=== PATIENT | male | born 1995 | race Caucasian/White ===

== ENCOUNTER 2024-06-09 09:10 | Emergency (ER) | payer BC, SELFPAY ==
[2024-06-09 09:34] VITALS: BP 136/80; PULSE 74; RESP 16; TEMP 36.6; O2SAT 97
--- NOTE | 2024-06-09 10:05 | ED.URI ---
HPI - URI/Sore Throat General Chief Complaint: Upper Respiratory Infection Stated Complaint: ? Strep Time Seen by Provider: 06/09/24 10:06 History of Present Illness HPI Narrative: 29-year-old male presented for complaint of sore throat for 2 weeks. He says he has ?no pain? just some discomfort. Has been using a homeopathic 'fire cider' drink without much improvement. Says his saw white patches in the throat. Denies shortness of breath, wheezing, nausea, vomiting diarrhea, fevers or chills. Related Data Home Medications ?Medication ?Instructions ?Recorded ?Confirmed ?Last Taken ?Type No Home Medications 06/09/24 06/09/24 Unknown History Allergies Allergy/AdvReac Type Severity Reaction Status Date / Time Penicillins Allergy Mild Hives Verified 06/09/24 10:09 Bumble Bee Allergy Mild Hives Uncoded 06/09/24 10:09 Review of Systems Review of Systems: CONSTITUTIONAL: Denies body aches, fever, chills, or sweats. EYES: Denies visual changes, redness, or discharge. ENT: reports sore throat Denies rhinorrhea, congestion, or otalgia. CARDIOVASCULAR: Denies chest pain, palpitations, or edema. RESPIRATORY: Denies dyspnea. GASTROINTESTINAL: Denies abdominal pain, nausea, vomiting, or diarrhea. SKIN: Denies rash MUSCULOSKELETAL: Denies back pain, joint pain, or myalgia. NEUROLOGIC: Denies headache Exam Narrative: GENERAL: well-appearing EYES: conjunctivae clear ENT: Mucous membranes moist. TM pearly arcos with normal light reflex bilaterally; no tragal tenderness. Oropharynx mildly erythematous without lesions. Tonsils not enlarged and without exudate. No drooling, no hoarseness, no trismus, uvula midline. No tripod positioning, hot potato voice, or soft palate swelling. NECK: Supple. No lymphadenopathy CHEST: Clear to auscultation, breath sounds equal. No respiratory distress, speaks in full sentences. HEART: Regular rate and rhythm. No murmur heard. SKIN: Warm, dry, no rash. NEURO: Alert and oriented x3. Course Course Emergency Course: Patient is aware of diagnosis, understands and agrees to treatment plan. Anticipatory guidance given. Patient agrees to follow-up as directed and is aware of reasons to seek care at the emergency department. Portions of this record may have been created with voice recognition software [employer] of Care: Express Care Visit Vital Signs Vital signs: Vital Signs Temperature 97.8 F 06/09/24 09:34 Pulse Rate 74 06/09/24 09:34 Respiratory Rate 16 06/09/24 09:34 Blood Pressure 136/80 06/09/24 09:34 Pulse Oximetry 97 06/09/24 09:34 Temperature 97.8 F 06/09/24 09:34 Pulse Rate 74 06/09/24 09:34 Respiratory Rate 16 06/09/24 09:34 Blood Pressure 136/80 06/09/24 09:34 Pulse Oximetry 97 06/09/24 09:34 MDM - URI/Sore Throat MDM Narrative Medical decision making narrative: neg strep result reviewed with pt. Advise supportive treatments. Patient is appropriate for outpatient treatment and follow-up. Differential Diagnosis Differential diagnosis: Likely upper respiratory infection, viral infection and pharyngitis Discharge Plan Discharge Clinical Impression: Pharyngitis Patient Disposition: Home, Self-Care Condition: Stable Instructions: Antibiotic Form, Strep Throat (ED) Additional Instructions: Rapid strep swab was negative today You will be notified in a few days if the culture comes back positive for strep, and appropriate antibiotics will be called in at that time. if symptoms are due to a viral illness, it is not treated with antibiotics. Viral symptoms can be present for up to 10-14 days. Recommendations: Flonase spray and Zyrtec for sinus congestion Cough syrup may cause drowsiness; avoid driving or take it at night time. Tylenol every 8 hours as needed for pain/fever Soft foods, cool liquids, warm tea. Gargle with warm saltwater twice a day. Chloraseptic spray and throat lozenges. Rest and stay hydrated. --Follow up with your PCP --Go to the ER immediately if you cannot swallow your saliva, trouble breathing/wheezing, throat swelling, pain is persistent and severe Patient Language: Mongolian Follow-up/Referrals: Dave,ALDA Webb [Primary Care Provider] - Time of Disposition: 10:18
[2024-06-09 10:09] LABS: EDSTREPNEGPOS1 Negative (Negative)
--- OUTSIDE RECORDS SUMMARY | 2024-06-16 05:06 | XMS_ITS | Encounter Summary ---
Author Organization [facility] Address [address] [place] [address] Phone Care Team Providers Care Line Haul Driver Name Role Phone Tracey Acosta Primary Care Pr ovider Encounter Details Date Type Department Care Team (Late st Contact Info) Description 09/12/2023 Telephone [facility] Gastroenterology [facility] Medicine 12th [place] [address] [place] [phone] Marcelina Guerrero RMA Social History Tobacco Use Types Packs/Day Years Used Date Smoking Tobacco: Never Smokeless Tobacco: Never Alcohol Use Standard Drinks/Week Comments Not Currently 0 (1 standard drink = 0.6 oz pur e alcohol) Personal Safety Answer Date Recorded Getting School Help Needed Not on file 06/23 Sex and Gender Information Value Date Recorded Sex Assigned at Not on file 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 * Telephone Encounter - Marcelina Guerrero RMA - 09/12/2023 7:29 PM CDT ----- Message from Monica Fry RN sent at 02/06/2023 10:04 AM CDT ----- Regarding: march colonoscopy Per Senait pt needs colonoscopy to evaluate for inflammation please documented in this encounter Plan of Treatment Not on file documented as of this encounter Visit Diagnoses Not on filedocumented in this encounter Care Teams Line Haul Driver Relationship Specialty Start Date End Date Tracey Acosta PA PCP - General Physician Cotton Weigher Operator 03/06/18 documented as of this encounter
--- OUTSIDE RECORDS SUMMARY | 2024-06-16 05:06 | XMS_ITS | Referral Summary ---
Author Organization [facility] Address [address] [place] [address] Care Team Providers Care Medical Instrument Cable Fabricator Name Role Phone Tracey Acosta Primary Care Pr ovider Allergies Active Allergy Reactions Criticality Noted Date Comments Penicillins Rash Medium Medications No known medications Active Problems Problem Noted Date Diagnosed Date High risk medications (not anticoagulants) long- term use 04/22/2019 Assessment & Plan (04/22/2019 11:41 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): High risk medications: As with all patients taking immunosuppressive biologic therapies or immunomodulators, we provide a balanced discussion on benefits and risks associated with these medications. Regarding potential risks, we employ a strategy of active monitoring for medication related toxicities. Toxicities and risks discussed in monitoring include, but are not limited to the following: infusion reactions including anaphylaxis; bacterial, viral and fungal infections; pancreatitis; heart failure; neurologic reactions; hematologic and solid tumors malignancy including an increased risk of lymphoma and skin cancers; bone marrow toxicity including anemia, lymphopenia and immune suppression; hepatotoxicity and potential renal toxicity. Patients are actively assessed through routine laboratories (Q4 month or more frequently) which I personally review and are encouraged to contact us with any questions regarding new symptom development. Ulcerative colitis with complication 07/17/2018 Overview (10/01/2019): Year of diagnosis: 2010 Year symptoms began: 2010 Distribution: Extensive (E3). Extraintestinal manifestations: none Complications: none Prior treatments: mesalamine, uceris Current treatment: Entyvio Prior surgeries: none Endoscopies: Colonoscopy 08/2018 The examined portion of the ileum was normal. Colitis. Inflammation was found in the hepatic flexure. This was graded as Rowland Score 3 (severe disease). Normal mucosa in the ascending colon and in the cecum. Normal mucosa in the descending colon. Moderately active (Rowland Score 2) ulcerative colitis. Inflammation was found from the anus to the rectum. This was graded as Rowland Score 2 (moderate disease). Pseudopolyps in the recto-sigmoid colon. Biopsied Path: Small bowel, terminal ileum, biopsy Ileal mucosa with no histopathologic abnormality, Large bowel, right colon, biopsy Colonic mucosa with largely preserved architecture, patchy cryptitis and crypt abscess No viral inclusions, parasites, granuloma, or dysplasia, Large bowel, transverse colon, biopsy Chronic active colitis, with prominent crypt abscesses No viral inclusions, granuloma, or dysplasia, Large bowel, descending colon, biopsy Inactive chronic colitis, with glandular architectural disarray, Paneth cell metaplasia, and increased eosinophils No activity, granuloma, or dysplasia, Large bowel, rectosigmoid, biopsy Inactive chronic colitis/ proctitis, with glandular architectural disarray, Paneth cell metaplasia, and increased eosinophils No activity, granuloma, or dysplasia, Large bowel, rectosigmoid, polyps, biopsy Inflammatory pseudopolyps, no dysplasia Imaging: MRE 05/2019 active inflammation noted distal descending to rectum Assessment & Plan (04/22/2019 11:40 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): Ulcerative colitis diagnosed in 2010. Previously maintained on Lialda. He had a colonoscopy in August while on Lialda. At that time he had active disease. The inflammation noted on endoscopy was not contiguous and there were some skipped areas. Question is this possible crohn's vs. Atypical UC/poss med effect. Plan at last OV was to check labs and MRE as well. This was not done. He reports since that office visit he has stopped lialda due to cost. Only taking Uceris PRN for symptoms. He hasn't done this for 2 months. Reports about 2 months ago he had a flare of diarrhea and hematochezia. He currently is having 3-5 stools daily. Reports urgency of stool as well -needs to be on maintenance medication for his IBD especially given endoscopic findings. Mesalamine was not effective at controlling his IBD. Discussed at length the importance of maintenance medication and avoidance of steroids if necessary, he v/u -discussed other treatment options. 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 Immunizations Name Administration Dates Next Due DTP 08/29/1994,02/07/1994,1993 ,1993 DTaP 02/02/1998 Hep B, Adolescent or Pediatric 08/29/1994,1993,1993 HiB 08/29/1994,02/07/1994,1993 MMR 02/02/1998,02/07/1994 OPV 02/02/1998,02/07/1994,1993 ,1993 Social History Tobacco Use Types Packs/Day Years Used Date Smoking Tobacco: Never Smokeless Tobacco: Never Tobacco Cessation:Counseling Given: Not Answered Alcohol Use Standard Drinks/Week Comments Not Currently 0 (1 standard drink = 0.6 oz pur e alcohol) Personal Safety Answer Date Recorded Getting School Help Needed Not on file 06/23 Sex and Gender Information Value Date Recorded Sex Assigned at Not on file Legal Sex Male 7:03 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 Gender Identity Not on file Sexual Orientation Not on file Last Filed Vital Signs Vital Sign Reading Time Taken Comments Blood Pressure 109/67 01/02/2023 2:27 PM CDT Pulse 61 01/02/2023 2:27 PM CDT Temperature 36.8 ??C (98.2 ??F) 01/02/2023 2:27 PM CD T Respiratory Rate 16 03/22/2022 2:48 PM CDT Oxygen Saturation 94% 01/02/2023 2:27 PM CDT Inhaled Oxygen Concentration - - Weight 104.8 kg (231 lb) 01/02/2023 2:27 PM CDT Height 180.3 cm (5' 11 ) 03/22/2022 2:48 PM CDT Body Mass Index 32.22 03/22/2022 2:48 PM CDT Plan of Treatment Not on file Insurance [facility] [address] [facility] [place] [phone] [place] [address] CIGNA CIGNA Advance Directives For more information, please contact: [phone] * Full Code (Latest Code Status on File) Date Activated Date Inactivated Comments 09/07/2018 1:39 PM 09/07/2018 9:36 PM Care Teams Medical Instrument Cable Fabricator Relationship Specialty Start Date End Date Tracey Acosta PA PCP - General Physician Maintenance Pipefitter 03/06/18
--- OUTSIDE RECORDS SUMMARY | 2024-06-16 05:06 | XMS_ITS | Encounter Summary ---
Author Organization [facility] Address [address] [place] [address] Phone Care Team Providers Care Executive Account Manager Name Role Phone Tracey Acosta Primary Care Pr ovider Reason for Visit * Reason Onset Date Comments Scheduling Appointments 08/03/2023 Unsuccessful Phone Call 4 08/03/2023 Encounter Details Date Type Department Care Team (Late st Contact Info) Description 08/03/2023 Telephone [facility] Gastroenterology [address] [facility] 12th [place] [address] [place] [address] Nina Rosenbaum Scheduling Appointments; Unsuccessful Phone Call 4 Social History Tobacco Use Types Packs/Day Years Used Date Smoking Tobacco: Never Smokeless Tobacco: Never Alcohol Use Standard Drinks/Week Comments Not Currently 0 (1 standard drink = 0.6 oz pur e alcohol) Personal Safety Answer Date Recorded Getting School Help Needed Not on file 06/23 Sex and Gender Information Value Date Recorded Sex Assigned at Not on file Legal Sex Male 7:03 AM HUMAN RESOURCES BENEFITS SPECIALIST Gender Identity Not on file Sexual Orientation Not on file documented as of this encounter Miscellaneous Notes * Telephone Encounter - Nina Rosenbaum - 08/08/2023 2:41 PM HUMAN RESOURCES BENEFITS SPECIALIST Attempted call to pt; no answer, LMOR x2 requesting pt call back to schedule f/u appt N RESOURCES BENEFITS SPECIALIST * Telephone Encounter - Nina Rosenbaum - 08/03/2023 10:36 AM HUMAN RESOURCES BENEFITS SPECIALIST No response to previous calls or letters to schedule. I attempted call to pt today; no answer, LMOR x1 requesting he call me back as soon as possible. N RESOURCES BENEFITS SPECIALIST * Telephone Encounter - Nina Rosenbaum - 08/03/2023 10:35 AM HUMAN RESOURCES BENEFITS SPECIALIST ----- Message from Nina Rosenbaum sent at 07/14/2023 10:32 AM HUMAN RESOURCES BENEFITS SPECIALIST ----- No. Warning letter mailed today. ----- Message ----- From: Monica Fry RN Sent: 07/14/2023 12:00 AM HUMAN RESOURCES BENEFITS SPECIALIST To: Amrit Weber Hakan Pool Did pt schedule? ----- Message ----- From: Hira Ledbetter Sent: 07/03/2023 8:43 AM HUMAN RESOURCES BENEFITS SPECIALIST To: Monica Fry RN Lmomx2 and sent letter ----- Message ----- From: Keeley Tran Sent: 06/30/2023 1:48 PM HUMAN RESOURCES BENEFITS SPECIALIST To: Hira Ledbetter ----- Message ----- From: Monica Fry RN Sent: 06/30/2023 11:15 AM HUMAN RESOURCES BENEFITS SPECIALIST To: Amrit Weber [facility] [place] Jul 2023 Rov with parakkal hakan or ibd inpatient coder for 6 deyanira f/u please N RESOURCES BENEFITS SPECIALIST documented in this encounter Plan of Treatment Not on file documented as of this encounter Visit Diagnoses Not on filedocumented in this encounter Care Teams Executive Account Manager Relationship Specialty Start Date End Date Tracey Acosta PA PCP - General Physician Marketing Intern 03/06/18 documented as of this encounter
--- OUTSIDE RECORDS SUMMARY | 2024-06-16 05:06 | XMS_ITS | Clinical Summary ---
Author Organization [facility] Address [address] [place] [address] Care Team Providers Care Health Information Manager Name Role Phone Dave Tracey CHAVEZ Primary Care Pr ovider Allergies Active Allergy Reactions Criticality Noted Date Comments Penicillins Rash Medium Medications No known medications Active Problems Problem Noted Date Diagnosed Date High risk medications (not anticoagulants) long- term use 04/22/2019 Assessment & Plan (04/22/2019 11:41 AM ANSWERER): High risk medications: As with all patients [...] rectum Assessment & Plan (04/22/2019 11:40 AM ANSWERER): Ulcerative colitis diagnosed in 2010. Previously maintained [...] HiB 08/29/1994,02/07/1994,1993 MMR 02/02/1998,02/07/1994 OPV 02/02/1998,02/07/1994,1993 ,1993 Surgical History Surgery Date Site/Laterality Comments COLONOSCOPY SHOULDER SURGERY Left Medical History Medical History Date Comments Awareness under anesthesia Ulcerative colitis (HCC) Family History Medical History Relation Name Comments No Known Problems Father Lung cancer Maternal Grandfather No Known Problems Mother Relation Name Status Comments Father Alive Maternal Grandfather Mother Alive Social History Tobacco Use Types Packs/Day Years [...] on file Legal Sex Male 7:03 AM ANSWERER Gender Identity Not on file Sexual Orientation Not on file Obstetrics History Last Filed Vital Signs Vital Sign Reading [...] 03/22/2022 2:48 PM CDT Plan of Treatment Health Maintenance Due Date Last Done Comments Depression Screening 1993 Hepatitis C Screening 1993 DTaP/Tdap/Td Vaccine (6 - Tdap) 01/09/2004 02/02/1998, 08/29/1994, 02/07/1994, Additional history exists Varicella Vaccines (1 of 2 - 13+ 2-dose series) 2006 Regular Well Visit/Exam 18-64 2011 Influenza Vaccine (#1) 2024 HPV Vaccines Aged Out No longer eligi ble based on patient's age to complete this topic Pneumococcal vaccine <65 Aged Out No longer eligible based on patient's age to complete this topic Insurance [facility] COPAY [facility] [address] [facility] [id number] [place] [address] CIGNA CIGNA Advance Directives For more information, please contact: [phone] * Full Code (Latest Code Status on File) Date Activated Date Inactivated Comments 09/07/2018 1:39 PM 09/07/2018 9:36 PM Care Teams Health Information Manager Relationship Specialty Start Date End Date Tracey Acosta PA PCP - General Physician Artificial Stone Setter 03/06/18
--- OUTSIDE RECORDS SUMMARY | 2024-06-16 05:06 | XMS_ITS | Encounter Summary ---
Author Organization [facility] Address [address] [place] [address] Phone Care Team Providers Care Heat Treater Name Role Phone Tracey Acosta Primary Care Pr ovider Encounter Details Date Type Department Care Team (Late st Contact Info) Description 10/12/[address] 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 Portal message sent to patient(04/10), letter mail(09/12) and phone call placed(09/11), no responses received from any attempts that have been made. Patient will need to contact office if they would like to schedule procedure. documented in this encounter Plan of Treatment Not on file documented as of this encounter Visit Diagnoses Not on filedocumented in this encounter Care Teams Heat Treater Relationship Specialty Start Date End Date Tracey Acosta PA PCP - General Physician Master Brewer 03/06/18 documented as of this encounter
--- OUTSIDE RECORDS SUMMARY | 2024-06-16 05:07 | XMS_ITS | Encounter Summary ---
Author Organization [facility] Address [address] [place] [address] Phone Care Team Providers Care Gut Carrier Name Role Phone Tracey Acosta Primary Care Pr ovider Encounter Details Date Type Department Care Team (Late st Contact Info) Description 09/22/2020 7:50 AM CDT Lab [facility] Endocrinology Metabolism and Lipid [address] [facility] 5th [place] [address] [place] [address] Social History Tobacco Use Types Packs/Day Years Used Date Smoking Tobacco: Never Smokeless Tobacco: Never Alcohol Use Standard Drinks/Week Comments Not Currently 0 (1 standard drink = 0.6 oz pur e alcohol) Sex and Gender Information Value Date Recorded Sex Assigned at Not on file 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
--- OUTSIDE RECORDS SUMMARY | 2024-06-16 05:07 | XMS_ITS | Encounter Summary ---
Author Organization [facility] Address [address] [place] [address] Phone Care Team Providers Care Accounts Payables Clerk Name Role Phone Tracey Acosta Primary Care Pr ovider Encounter Details Date Type Department Care Team (Late st Contact Info) Description 01/19/2021 Documentation [facility] Gastroenterology [address] [facility] 8th [place] [address] [place] [phone] Monica Fry RN Social History Tobacco Use Types Packs/Day Years Used Date Smoking Tobacco: Never Smokeless Tobacco: Never Alcohol Use Standard Drinks/Week Comments Not Currently 0 (1 standard drink = 0.6 oz pur e alcohol) Sex and Gender Information Value Date Recorded Sex Assigned at Not on file Legal Sex Male 7:03 AM TURRET PUNCH PRESS OPERATOR Gender Identity Not on file Sexual Orientation Not on file documented as of this encounter Progress Notes * Monica Fry RN - 01/19/2021 9:58 AM CDT Plan per [facility]: - safeties plus lipid panel - start xeljanz. PA started on covermymeds. Scales: [id number] documented in this encounter Plan of Treatment Not on file documented as of this encounter Visit Diagnoses Not on filedocumented in this encounter Care Teams Accounts Payables Clerk Relationship Specialty Start Date End Date Tracey Acosta PA PCP - General Physician Campus Recruiting Intern 03/06/18 documented as of this encounter
--- OUTSIDE RECORDS SUMMARY | 2024-06-16 05:07 | XMS_ITS | Encounter Summary ---
Author Organization [facility] Address [address] [place] [address] Phone Care Team Providers Care Lime Vat Tender Name Role Phone Tracey Acosta Primary Care Pr ovider Encounter Details Date Type Department Care Team (Late st Contact Info) Description 10/01/2019 Orders Only [facility] Gastroenterology [address] [facility] Advanced Medicine 8th [place] [address] [place] [address] Kristie Cormier MD [address] [place], [place] [id number] Ulcerative colitis with complication, unspecified location (CMS/HCC) (Primary Dx) Social History Tobacco Use Types Packs/Day Years Used Date Smoking Tobacco: Never Smokeless Tobacco: Never Alcohol Use Standard Drinks/Week Comments Not Currently 0 (1 standard drink = 0.6 oz pur e alcohol) Sex and Gender Information Value Date Recorded Sex Assigned at Not on file Legal Sex Male 7:03 AM CUSTOMER ACCOUNTS ADVISOR Gender Identity Not on file Sexual Orientation Not on file documented as of this encounter Plan of Treatment Scheduled Orders Name Type Priority Associated Diagnoses Orde r Schedule Calprotectin, fecal Lab Routine Ulcerative colitis with complication, unspecified location (CMS/HCC) Expected: 10/01/2019, Expires: 09/30/2020 documented as of this encounter Visit Diagnoses Diagnosis Ulcerative colitis with complication, unspecified location (HCC)- Primary documented in this encounter Care Teams Lime Vat Tender Relationship Specialty Start Date End Date Tracey Acosta PA PCP - General Physician Attorney Recruiter 03/06/18 documented as of this encounter
--- OUTSIDE RECORDS SUMMARY | 2024-06-16 05:07 | XMS_ITS | Encounter Summary ---
Author Organization [facility] Address [address] [place] [address] Phone Care Team Providers Care Rehabilitation Specialist Name Role Phone Tracey Acosta Primary Care Pr ovider Encounter Details Date Type Department Care Team (Late st Contact Info) Description 06/02/2020 Orders Only [facility] Gastroenterology [address] [facility] Advanced Medicine 8th [place] [address] [place] [address] Kristie Cormier MD [address] [place] [address] Social History Tobacco Use Types Packs/Day Years Used Date Smoking Tobacco: Never Smokeless Tobacco: Never Alcohol Use Standard Drinks/Week Comments Not Currently 0 (1 standard drink = 0.6 oz pur e alcohol) Sex and Gender Information Value Date Recorded Sex Assigned at Not on file 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
--- OUTSIDE RECORDS SUMMARY | 2024-06-16 05:07 | XMS_ITS | Encounter Summary ---
Author Organization [facility] Address [address] [place] [address] Phone Care Team Providers Care Outdoor Adventure Guides Name Role Phone Tracey Acosta Primary Care Pr ovider Reason for Visit * Episode Based Medications (Routine) - Closed Specialty Diagnoses / Procedures Referred By Contac t Referred To Contact Diagnoses Ulcerative colitis with complication, unspecified location (HCC) Procedures DE INJECTION, VEDOLIZUMAB Kristie Cormier MD [address] [place] [address] Phone: tel: fax: [facility] Infusion Therapy [facility] Medicine 5th [place] [address] [place] [address] Phone: tel: fax: Referral ID Status Reason Start Date Expiration Date Visits Re quested Visits Authorized [id number] Closed 07/03/2019 07/03/2020 5 5 Encounter Details Date Type Department Care Team (Late st Contact Info) Description 07/29/2019 12:45 PM REAR ADMIRAL Infusion [facility] Infusion Therapy [facility] Advanced Medicine 5th [place] [address] [place] [address] Ulcerative colitis with complication, unspecified location (CMS/HCC) (Primary Dx) Social History Tobacco Use Types Packs/Day Years Used Date Smoking Tobacco: Never Smokeless Tobacco: Never Alcohol Use Standard Drinks/Week Comments Not Currently 0 (1 standard drink = 0.6 oz pur e alcohol) Sex and Gender Information Value Date Recorded Sex Assigned at Not on file Legal Sex Male 7:03 AM REAR ADMIRAL Gender Identity Not on file Sexual Orientation Not on file documented as of this encounter Last Filed Vital Signs Vital Sign Reading Time Taken Comments Blood Pressure 123/78 07/29/2019 1:20 PM REAR ADMIRAL Pulse 60 07/29/2019 1:20 PM REAR ADMIRAL Temperature 36.7 ??C (98.1 ??F) 07/29/2019 1:20 PM CS T Respiratory Rate - - Oxygen Saturation - - Inhaled Oxygen Concentration - - Weight - - Height - - Body Mass Index - - documented in this encounter Progress Notes * Emilia Santo RN - 07/29/2019 12:45 PM CST Tolerated Entyvio infusion without adverse reaction. Follow up scheduled. No concerns. ADMIRAL documented in this encounter Plan of Treatment Not on file documented as of this encounter Procedures Procedure Name Priority Date/Time Associated Diagnosis Comments CBC WITH AUTO DIFFERENTIAL Routine 07/29/2019 1:25 PM REAR ADMIRAL Ulcerative colitis with complication, unspecified location (CMS/HCC) COMPREHENSIVE METABOLIC PANEL Routine 07/29/2019 1:25 PM REAR ADMIRAL Ulcerative colitis with complication, unspecified location (CMS/HCC) documented in this encounter Results * Comprehensive metabolic panel (07/29/2019 1:25 PM REAR ADMIRAL) Total Protein 7.9 6.1 - 8.4 g/dL [facility] Albumin 4.4 3.5 - 5.2 g/dL [facility] Calcium 10.3 8.6 - 10.3 mg/dL [facility] BUN 13 7 - 23 mg/dL [facility] Total Bilirubin 0.53 0.20 - 1.40 mg/dL [facility] Alk Phos, Total 70 35 - 129 IU/L [facility] AST (SGOT) 25 11 - 47 IU/L [facility] ALT (SGPT) 30 6 - 53 IU/L [facility] Creatinine 1.16 0.70 - 1.30 mg/dL [facility] Sodium 139 135 - 145 mmol/L [facility] Potassium 4.2 3.3 - 5.1 mmol/L [facility] Chloride 104 95 - 107 mmol/L [facility] CO2 Content 24 21 - 29 mmol/L [facility] Glucose 85 64 - 99 mg/dL [facility] Comment: NONFASTING GLUCOSE RANGE = 64-199 mg/dL FASTING GLUCOSE 64 - 99 = NORMAL FASTING GLUCOSE 100 - 125 = IMPAIRED FASTING GLUCOSE FASTING GLUCOSE >=126 = PROVISIONAL DIAGNOSIS OF DIABETES eGFR NON-AFR. CAMEROONIAN 86.4 >60.0 mL/min/1.7 3 m2 [facility] eGFR >90.0 >60.0 mL/min/1.7 3 m2 [facility] Blood specimen (specimen) (Blood, Venous) 07/29/2019 1:25 PM REAR ADMIRAL 07/29/2019 2:25 PM REAR ADMIRAL Kristie Cormier MD LAB BLOOD ORDERABLES Final Re sult [facility] * CBC with auto differential (07/29/2019 1:25 PM REAR ADMIRAL) White Blood Count 6.7 3.6 - 11.2 K/uL [facility] RBC 5.33 4.06 - 5.63 M/uL [facility] Hemoglobin 15.2 13.0 - 17.5 g/dL [facility] Hematocrit 45.2 40.7 - 50.3 % [facility] MCV 84.7 80.0 - 97.6 fL [facility] MCH 28.4 26.7 - 33.7 pg [facility] MCHC 33.6 32.7 - 35.5 g/dL [facility] RBC Dist Width 14.1 12.3 - 17.0 % [facility] Platelet Count 376 140 - 440 K/uL [facility] MPV 8.6 6.8 - 10.4 fL [facility] Neutrophils % 42.9 38.7 - 74.5 % [facility] Lymphocyte % 44.0 20.0 - 54.3 % [facility] Monocytes % 7.9 4.3 - 13.5 % [facility] Eosinophils % 4.3 0.0 - 6.0 % [facility] Basophil % 0.9 0.0 - 3.0 % [facility] Absolute Neutrophil 2.9 1.8 - 6.6 K/uL [facility] Absolute Lymphocyte 2.9 0.8 - 3.3 K/uL [facility] Absolute Monocyte 0.5 0.2 - 1.2 K/uL [facility] Absolute Eosinophil 0.3 0.0 - 0.5 K/uL [facility] Absolute Basophil 0.1 0.0 - 0.2 K/uL [facility] Nucleated RBC % 0.2 0.0 - 0.4 /100 WBC [facility] Blood specimen (specimen) 07/29/2019 1:25 PM REAR ADMIRAL 07/29/2019 2:25 PM REAR ADMIRAL Kristie Cormier MD LAB BLOOD ORDERABLES Final Re sult [facility] documented in this encounter Visit Diagnoses Diagnosis Ulcerative colitis with complication, unspecified location (HCC)- Primary documented in this encounter Administered Medications Inactive Administered Medications - up to 3 most recent administrations Medication Order MAR Action Action Date Dose Rate Site vedolizumab (ENTYVIO) 300 mg in sodium chloride 0.9% 250 mL IVPB 300 mg, intravenous, at 510 mL/hr, Administer over 30 Minutes, Once, On Mon07/30/19 at 2014, For 1 doseIndications:Ulcerative colitis with complication, unspecified location (HCC) New Bag 07/29/2019 1:30 PM REAR ADMIRAL 300 mg 510 mL/hr documented in this encounter Orders Medications Ordered That Juan ht Not Have Been Administered Count Last Ordered Date First Ordered Date vedolizumab (ENTYVIO) 300 mg in sodium chloride 0.9% 250 mL IVPB 1 07/29/2019 Nursing Count Last Ordered Date First Orde red Date DAILY WEIGHTS 1 07/29/2019 ONCBCN NO PREMEDS NEEDED 1 07/29/2019 ONCBCN NURSING COMMUNICATION [id number] 1 0 07/29/2019 ONCBCN PROVIDER COMMUNICATION 1 1 0 VITAL SIGNS PRE-INFUSION 1 07/29/2019 documented in this encounter Care Teams Outdoor Adventure Guides Relationship Specialty Start Date End Date Tracey Acosta PA PCP - General Physician [place] Dental Lab Technician 03/06/18 documented as of this encounter
--- OUTSIDE RECORDS SUMMARY | 2024-06-16 05:07 | XMS_ITS | Encounter Summary ---
Author Organization [facility] Address [address] [facility] [address] [place] [address] Phone Care Team Providers Care Oracle Database Developer Name Role Phone Tracey Acosta Primary Care Pr ovider Reason for Visit * Gastroenterology (Routine) - Closed Specialty Diagnoses / Procedures Referred By Tania carlton Referred To Contact Gastroenterology Diagnoses Ulcerative colitis, unspecified with unspecified complications Procedures RETURN Tracey Acosta PA Phone: tel: fax: Kristie Cormier MD [address] [place] [address] Phone: tel: fax: Referral ID Status Reason Start Date Expiration Date Visits Re quested Visits Authorized [id number] Closed 04/22/2019 03/12/2021 99 99 Encounter Details Date Type Department Care Team (Late st Contact Info) Description 09/01/2020 9:15 AM CDT Office Visit [facility] Gastroenterology [address] 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 Gender Identity Not on file Sexual Orientation Not on file documented as of this encounter Last Filed Vital Signs Vital Sign Reading Time Taken Comments Blood Pressure 121/77 09/01/2020 9:41 AM CDT Pulse 56 09/01/2020 9:41 AM CDT Temperature 36.7 ??C (98.1 ??F) 09/01/2020 9:41 AM CD T Respiratory Rate - - Oxygen Saturation - - Inhaled Oxygen Concentration - - Weight 102.1 kg (225 lb) 09/01/2020 9:41 AM CDT Height 180.3 cm (5' 11 ) 09/01/2020 9:41 AM CDT Body Mass Index 31.38 09/01/2020 9:41 AM CDT documented in this encounter Progress Notes * Bao Nassar MD - 09/01/2020 9:15 AM CDT Images from the original note were not included. [facility] DEPARTMENT OF MEDICINE DIVISION OF GASTROENTEROLOGY Clinic Address: [address] [place] [address], [address] [place] [address] Mailing Address: [facility] Zulema Varela [facility] [place] [address] [place] [address] Consult Note NAME: Balbir Noriega : 1995 DOS: 09/01/20 Consult requested by: Tracey Acosta* Primary Care Physician: Tracey Acosta PA Subjective Chief complaint: No chief complaint on file. HPI Mr. Noriega is a 25 y.o. male with history of ulcerative colitis. He was initially diagnosed in 2010. He was initially placed on lialda and as needed uceris. He self-discontinued lialda, and was taking uceris infrequently. Colonoscopy in August 2018 showed showing inflammation in the hepatic flexure [place] 3, with inflamation from anus to rectum may 2 score, pseudopolyps in rectosigmoid colon, with histology showing chronic active colitis with crypt abscesses, paneth cell metaplasia, increased eosinophils, inflammatory p seudopolyps. . He was seen by Dr Rich in clinic in clinic 2018, at which time plan was made to start entyvio. MRE in April 2019 showed Active colitis from the distal descending colon to the rectum, consistent with history of ulcerative colitis, with remaining colon and small bowel are normal. Patient had received 2 doses of entyvio, once in october 2019 and once in May 2020. He reports that the frequency of entyvio was limited by financial issues, though he reports that he is working on financial assistance, and has a new insurance plan. He reports that he was having flaring symptoms in april 2020, but reports that symptoms have been well controlled since entyvio injection in May 2020. He reports no abdominal pain, nausea, vomiting, or blood in the stool currently. He is a non-smoker. He is currently expecting a child. He is uninterested in influenza or pneumococcus vaccine. He is currently contemplative regarding the COVID vaccine. Patient Active Problem List Diagnosis ??? Instability of shoulder joint ??? Superior glenoid labrum lesion of shoulder ??? Ulcerative colitis with complication (CMS/HCC) ??? High risk medications (not anticoagulants) long-term use Past Medical History: Diagnosis Date ??? Awareness under anesthesia ??? Ulcerative colitis (CMS/HCC) Past Surgical History: Procedure Laterality Date ??? COLONOSCOPY ??? SHOULDER SURGERY Left Current Outpatient Medications: ??? vedolizumab (ENTYVIO) 300 mg recon soln, Infuse into a venous catheter once, Disp: , Rfl: ??? prednisoLONE acetate (PRED FORTE) 1 % ophthalmic suspension, , Disp: , Rfl: 0 Allergies Allergen Reactions ??? Penicillins Rash Family History Problem Relation Age of Onset ??? No Known Problems Mother ??? No Known Problems Father ??? Lung cancer Maternal Grandfather Social History Tobacco Use ??? Smoking status: Never Smoker ??? Smokeless tobacco: Never Used Substance Use Topics ??? Alcohol use: Not Currently ??? Drug use: Never ROS As outlined in HPI. All other systems negative. Objective Vital Signs BP 121/77 Pulse 56 Temp 36.7 ??C (98.1 ??F) Ht 180.3 cm (5' 11 ) Wt 102.1 kg (225 lb) BMI31.38 kg/m?? Physical Exam GENERAL: Well-appearing, in no acute distress. HEENT: Normocephalic atraumatic, Sclerae anicteric. NECK: Supple without lymphadenopathy. No JVD. LUNGS: Clear to auscultation bilaterally. CARDIOVASCULAR: Regular rate and rhythm with no murmur. ABDOMEN: soft, non-tender; bowel sounds normal; no masses, no organomegaly EXTREMITIES: No clubbing, cyanosis or edema, or evident deformity. SKIN: No rash or jaundice. NEUROLOGIC: Grossly nonfocal on simple observation with normal insight, memory, affect, and orientation, and no focal weakness evident. PSYCHIATRIC: Normal affect Results: Lab Results Component Value Date WBC 9.3 05/27/2020 HGB 15.2 05/27/2020 HCT 46.4 05/27/2020 MCV 86.2 05/27/2020 LABPLAT 383 05/27/2020 Lab Results Component Value Date GLUCOSE 73 05/27/2020 CALCIUM 9.7 05/27/2020 SODIUM 140 05/27/2020 POTASSIUM 4.0 05/27/2020 CO2 27 05/27/2020 CHLORIDE 104 05/27/2020 BUNSER 11 05/27/2020 CREATININE 0.97 05/27/2020 Lab Results Component Value Date ALT 44 05/27/2020 AST 44 05/27/2020 ALKPHOS 51 05/27/2020 BILITOT 0.7 05/27/2020 Assessment/Plan 1. Ulcerative colitis Diagnosed initially 2010, on lialda and uceris with limited adherence colonoscopy august 2018 and MRI april 2019 with active colitis Initiated on entyvio, received 2 infusions, in October and May 2020 - will need to be re-initiated on entyvio - emphasized to patient importance of getting the COVID vaccine, though he seems hesitant - patient uninterested in pneumococcal vaccination - repeat imaging / colonoscopy after re-initiation of treatment Cosigned by Kristie Cormier MD at 10/05/2020 5:58 PM CDT Associated attestation - Kristie Cormier MD - 10/05/2020 5:58 PM CDT I have seen and examined the patient. I agree with the findings and plan of care as documented in the resident/fellow's note. My total encounter time on 09/01/2020 was 30 minutes which was spent in the activities documented in the note. This includes time spent prior to the visit and after the visitin direct care of the patient. This time does not include time spent in any separately reportable services. documented in this encounter Plan of Treatment Not on file documented as of this encounter Visit Diagnoses Diagnosis Ulcerative colitis with complication, unspecified location (HCC)- Primary documented in this encounter Care Teams Oracle Database Developer Relationship Specialty Start Date End Date Tracey Acosta PA PCP - General Physician Manager Education 03/06/18 documented as of this encounter
--- OUTSIDE RECORDS SUMMARY | 2024-06-16 05:07 | XMS_ITS | Encounter Summary ---
Author Organization [facility] Address [address] [facility] [address] [place] [address] Care Team Providers Care Supervisor Scrap Preparation Name Role Phone Tracey Acosta Primary Care Pr ovider Reason for Visit * Reason Comments Sore Throat Sore throat for 1 we ek. Difficulty swallowing. Seems to be worse at night. He states his tonsils are swollen Encounter Details Date Type Department Care Team (Late Contact Info) Description 03/22/2022 2:45 PM CDT Office Visit [facility] Outpatient Center [address] [address] Makeda Cruz PA [address] [place] [address] [address] [place] [address] Acute tonsillitis, unspecified etiology (Primary Dx) Social History Tobacco Use Types Packs/Day Years Used Date Smoking Tobacco: Never Smokeless Tobacco: Never Alcohol Use Standard Drinks/Week Comments Not Currently 0 (1 standard drink = 0.6 oz pur e alcohol) Sex and Gender Information Value Date Recorded Sex Assigned at Not on file 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 Gender Identity Not on file Sexual Orientation Not on file documented as of this encounter Last Filed Vital Signs Vital Sign Reading Time Taken Comments Blood Pressure 106/70 03/22/2022 2:48 PM CDT Pulse 79 03/22/2022 2:48 PM CDT Temperature 37.8 ??C (100 ??F) 03/22/2022 2:48 PM CDT Respiratory Rate 16 03/22/2022 2:48 PM CDT Oxygen Saturation 96% 03/22/2022 2:48 PM CDT Inhaled Oxygen Concentration - - Weight 101.6 kg (224 lb) 03/22/2022 2:48 PM CDT Height 180.3 cm (5' 11 ) 03/22/2022 2:48 PM CDT Body Mass Index 31.24 03/22/2022 2:48 PM CDT documented in this encounter Patient Instructions * Patient Instructions* Makeda Cruz PA - 03/22/2022 2:45 PM CDT Strep throat -Please take & finish all of your medications as prescribed. THIS IS VERY IMPORTANT. -You are more CONTAGIOUS to others until you have been on antibiotics for 24 hours. -Avoid sharing food/ drinks and close contact until you are less contagious -Change your toothbrush the 3rd day you are on you antibiotics -Take Tylenol (acetaminophen) or Advil/Motin (ibuprofen) as needed per package directions for aches/pains. -Frequent warm or cool liquids can be soothing. Try soups or popsicles for comfort. If you still are not having relief with the above, you can try a Magic Mouthwash -Equal parts liquid antacid (e.g.Maalox) and children's Benadryl with a couple drops of Anbesol gargle and spit every 3-4 hours as needed. If you are not improving or worsening in the next 3-5 days you must RETURN to the clinic, go to your PCP, or Urgent Care/ER to be SEEN and reevaluated. No further prescriptions or refills will be given by phone without another evaluation. * Attachments The following attachments cannot be sent through Care Everywhere. * Tonsillitis (Paint Roller Covers Supervisor) (Stateless) documented in this encounter Ordered Prescriptions Prescription Sig Dispense Quantity Refills Last Filled Start Date End Date azithromycin (ZITHROMAX) 250 mg tablet Take 2 tabs (500 mg) by mouth today, than 1 tab (250 mg) daily for 4 days. 6 tablet 03/22/2022 03/27/2022 documented in this encounter Progress Notes * Makeda Cruz PA - 03/22/2022 2:45 PM CDT Images from the original note were not included. Subjective/Objective Patient ID: Balbir Noriega is a 27 y.o. male. Chief Complaint Sore Throat (Sore throat for 1 week. Difficulty swallowing. Seems to be worse at night. He states his tonsils are swollen) Pt c/o sore throat x 7 days. He states he started having a sore throat apprx 1 week ago but it wentaway with hot tea, fluids, rest. Last night the sore throat came back worse. He is now having fever, chills, body aches, headache. He has not taken anything for the pain. No sick contacts. No ear pain, nasal congestion, cough. Sore Throat Associated symptoms include headaches. Pertinent negatives include no congestion, coughing or shortness of breath. Review of Systems Constitutional: Positive for fever. HENT: Positive for sore throat. Negative for congestion. Respiratory: Negative for cough and shortness of breath. Cardiovascular: Negative for chest pain. Musculoskeletal: Positive for myalgias. Neurological: Positive for headaches. All systems reviewed and are negative or non contributory for this patient's presentation today other than as stated in the HPI . Physical Exam Constitutional: General: He is not in acute distress. Appearance: He is not ill-appearing or toxic-appearing. HENT: Head: Normocephalic and atraumatic. Right Ear: There is impacted cerumen. Left Ear: There is impacted cerumen. Nose: Nose normal. No congestion or rhinorrhea. Mouth/Throat: Mouth: Mucous membranes are moist. Pharynx: Oropharynx is clear. Posterior oropharyngeal erythema present. Tonsils: Tonsillar exudate present. 2+ on the right. 2+ on the left. Eyes: Conjunctiva/sclera: Conjunctivae normal. Pupils: Pupils are equal, round, and reactive to light. Cardiovascular: Rate and Rhythm: Normal rate and regular rhythm. Heart sounds: Normal heart sounds. Pulmonary: Effort: Pulmonary effort is normal. Breath sounds: Normal breath sounds. Musculoskeletal: General: Normal range of motion. Cervical back: Normal range of motion. Lymphadenopathy: Cervical: Cervical adenopathy present. Skin: General: Skin is warm and dry. Neurological: General: No focal deficit present. Mental Status: He is alert and oriented to person, place, and time. Psychiatric: Mood and Affect: Mood normal. Behavior: Behavior normal. Vitals: 03/22/22 1448 BP: 106/70 BP Location: Right arm Patient Position: Sitting Pulse: 79 Resp: 16 Temp: 37.8 ??C (100 ??F) TempSrc: Oral SpO2: 96% Weight: 101.6 kg (224 lb) Height: 180.3 cm (5' 11 ) Assessment/Plan Pt treated with antibiotics according to [facility] Criteria: Tonsillar exudates Tender anterior cervical adenopathy Fever by history Absence of cough Monospot negative Diagnoses and all orders for this visit: Acute tonsillitis, unspecified etiology (Primary) - POCT rapid strep A - Throat culture Throat; Future - POCT infectious mononucleosis antibody Other orders - azithromycin (ZITHROMAX) 250 mg tablet; Take 2 tabs (500 mg) by mouth today, than 1 tab (250 mg) daily for 4 days. Recent Results (from the past 4 hour(s)) POCT rapid strep A Collection Time: 03/22/22 2:58 PM Result Value Ref Range Rapid Strep A, POC Negative POCT infectious mononucleosis antibody Collection Time: 03/22/22 3:18 PM Result Value Ref Range Monospot negative Disposition Treatment plan including expectations, follow up, and return precautions discussed with patient/parent, verbalizes understanding. Medication dosage, use, and potential adverse reactions discussed with patient/parent. Advised to follow up with PCP if symptoms do not resolve as expected or sooner if condition worsens. Signs/symptoms warranting ER evaluation reviewed. Patient and/or guardian was given an opportunity to ask questions, questions answered. SCOTT Martin 03/22/22 3:25 PM documented in this encounter Plan of Treatment Not on file documented as of this encounter Procedures Procedure Name Priority Date/Time Associated Diagnosis Comments POCT INFECTIOUS MONONUCLEOSIS ANTIBODY Routine 03/22/2022 3:18 PM CDT Acute tonsillitis, unspecified etiology POCT RAPID STREP Routine 03/22/2022 2:58 PM CDT Acute tonsillitis, unspecified etiology documented in this encounter Results * POCT infectious mononucleosis antibody (03/22/2022 3:18 PM CDT) Monospot negative Blood spot 03/22/2022 3:18 PM CDT Makeda CHAVEZ POINT OF CARE TEST ORDER YADIRA Final Result * (ABNORMAL) Throat culture Throat (03/22/2022 3:10 PM CDT) Report Final Report: Streptococcus dysgalactiae Routine susceptibility testing not performed. (.) [facility] Comment:Testing performed by : [facility], [address] [place]., [address] Organism ST[facility] Throat 03/22/2022 3:10 PM CDT 03/22/2022 10:46 PM CDT Narrative [facility] - 03/23/2022 11:16 PM CDT Testing performed by [facility] Microbiology Laboratory ([phone]). Makeda CHAVEZ LAB MICROBIOLOGY - GENER AL ORDERABLES Final Result [facility] [id number] [address] Department [place] [address] * POCT rapid strep A (03/22/2022 2:58 PM CDT) Pathologist [facility] Rapid Strep A, POC Negative Swab 03/22/2022 2:58 PM CDT us Makeda CHAVEZ POINT OF CARE TEST ORDER YADIRA Final Result documented in this encounter Visit Diagnoses Diagnosis Acute tonsillitis, unspecified etiology- Primary Acute tonsillitis, unspecified etiology documented in this encounter Care Teams Supervisor Scrap Preparation Relationship Specialty Start Date End Date Tracey Acosta PA PCP - General Physician Coat Fitter 03/06/18 documented as of this encounter
--- OUTSIDE RECORDS SUMMARY | 2024-06-16 05:07 | XMS_ITS | Encounter Summary ---
Author Organization [facility] Address [address] [place] [address] Phone Care Team Providers Care Senior Account Director Name Role Phone Tracey Acosta Primary Care Pr ovider Reason for Visit * Episode Based Medications (Routine) - Closed Specialty Diagnoses / Procedures Referred By Contac t Referred To Contact Diagnoses Ulcerative colitis with complication, unspecified location (HCC) Procedures PA INJECTION, VEDOLIZUMAB Kristie Cormier MD [address] [place] [address] Phone: tel: fax: [facility] Infusion Therapy [facility] Medicine 5th [place] [address] [place] [address] Phone: tel: fax: Referral ID Status Reason Start Date Expiration Date Visits Re quested Visits Authorized [id number] Closed 07/03/2019 07/03/2020 5 5 Encounter Details Date Type Department Care Team (Late st Contact Info) Description 06/06/2019 11:00 AM AUTO APPRAISER Infusion [facility] Infusion Therapy [facility] Advanced Medicine 5th [place] [address] [place] [address] Ulcerative colitis with complication, unspecified location (CMS/HCC) (Primary Dx) Social History Tobacco Use Types Packs/Day Years Used Date Smoking Tobacco: Never Smokeless Tobacco: Never Alcohol Use Standard Drinks/Week Comments Not Currently 0 (1 standard drink = 0.6 oz pur e alcohol) Sex and Gender Information Value Date Recorded Sex Assigned at Not on file Legal Sex Male 7:03 AM AUTO APPRAISER Gender Identity Not on file Sexual Orientation Not on file documented as of this encounter Last Filed Vital Signs Vital Sign Reading Time Taken Comments Blood Pressure 132/82 06/06/2019 11:15 AM AUTO APPRAISER Pulse 88 06/06/2019 11:15 AM AUTO APPRAISER Temperature 37.1 ??C (98.7 ??F) 06/06/2019 11:[address] Respiratory Rate - - Oxygen Saturation - - Inhaled Oxygen Concentration - - Weight - - Height - - Body Mass Index - - documented in this encounter Plan of Treatment [...] mL/hr, Administer over 30 Minutes, Once, On Radha 06/06/19 at 1133, For 1 doseIndications:Ulcerative colitis with complication, unspecified location (HCC) New Bag 06/06/2019 11:25 AM AUTO APPRAISER 300 mg 510 mL/hr documented in this encounter Orders Medications Ordered That Juan ht Not Have Been Administered Count Last Ordered Date First Ordered Date vedolizumab (ENTYVIO) 300 mg in sodium chloride 0.9% 250 mL IVPB 1 06/06/2019 Nursing Count Last Ordered Date First Orde red Date VITAL SIGNS PRE-INFUSION 1 06/06/2019 documented in this encounter Care Teams Senior Account Director Relationship Specialty Start Date End Date Tracey Acosta PA PCP - General Physician Poker Room Manager 03/06/18 documented as of this encounter
--- OUTSIDE RECORDS SUMMARY | 2024-06-16 05:07 | XMS_ITS | Encounter Summary ---
Author Organization [facility] Address [address] [place] [address] Phone Care Team Providers Care Spinner Box Name Role Phone Tracey Acosta Primary Care Pr ovider Reason for Visit * Episode Based Medications (Routine) - Closed Specialty Diagnoses / Procedures Referred By Contac t Referred To Contact Diagnoses Ulcerative colitis with complication, unspecified location (HCC) Procedures CA INJECTION, VEDOLIZUMAB Kristie Cormier MD [address] [place] [address] Phone: tel: fax: [facility] Infusion Therapy [facility] [place] Medicine [address]th [place] [address] [place] [address] Phone: tel: fax: Referral ID Status Reason Start Date Expiration Date Visits Re quested Visits Authorized [id number] Closed 07/03/2019 07/03/2020 5 5 Encounter Details Date Type Department Care Team (Late st Contact Info) Description 05/27/2020 10:00 AM SUPPORT TEACHER Infusion [facility] Infusion Therapy [facility] Advanced Medicine 5th [place] [address] [place] [address] Ulcerative colitis with complication, unspecified location (CMS/HCC) (Primary Dx) Social History Tobacco Use Types Packs/Day Years Used Date Smoking Tobacco: Never Smokeless Tobacco: Never Alcohol Use Standard Drinks/Week Comments Not Currently 0 (1 standard drink = 0.6 oz pur e alcohol) Sex and Gender Information Value Date Recorded Sex Assigned at Not on file Legal Sex Male 7:03 AM SUPPORT TEACHER Gender Identity Not on file Sexual Orientation Not on file documented as of this encounter Last Filed Vital Signs Vital Sign Reading Time Taken Comments Blood Pressure 124/79 05/27/2020 10:15 AM SUPPORT TEACHER Pulse 74 05/27/2020 10:15 AM SUPPORT TEACHER Temperature 36.9 ??C (98.4 ??F) 05/27/2020 10:[address] Respiratory Rate 16 05/27/2020 10:15 AM SUPPORT TEACHER Oxygen Saturation - - Inhaled Oxygen Concentration - - Weight - - Height - - Body Mass Index - - documented in this encounter Progress Notes * David Hassan RN - 05/27/2020 10:00 AM CST Pt to infusion center for Entyvio infusion. Pre-meds declined. IV to LAC. Labs drawn. Infused over 30 minutes. No S/S of adverse reaction. VSS. Jaime Hassan RN ORT TEACHER documented in this encounter Miscellaneous Notes * Addendum Note - Dejon Smith CLT - 05/27/2020 10:00 AM CSTAddended by: DEJON SMITH on: 05/27/2020 12:44 PM Modules accepted: Orders ORT TEACHER documented in this encounter Plan of Treatment Not on file documented as of this encounter Results * CBC with auto differential (05/27/2020 10:15 AM SUPPORT TEACHER) [facility] WBC 9.3 3.8 - 9.9 K/cumm [facility] Hgb 15.2 13.0 - 17.5 g/dL [facility] Hct 46.4 38.9 - 50.3 % [facility] Plt 383 150 - 400 K/cumm [facility] MPV 9.7 9.1 - 12.3 fL [facility] RBC 5.38 4.30 - 5.80 M/cumm [facility] MCV 86.2 81.3 - 96.4 fL [facility] MCH 28.3 27.1 - 33.3 pg [facility] MCHC 32.8 32.3 - 35.7 g/dL [facility] RDW CV 13.0 11.1 - 14.9 % [facility] RDW SD 40.5 35.7 - 48.1 fL [facility] NRBC abs 0.00 0.00 - 0.01 K/cumm [facility] Blood specimen (specimen) 05/27/2020 10:15 AM SUPPORT TEACHER 05/27/2020 1:32 PM SUPPORT TEACHER Kristie Cormier MD LAB BLOOD ORDERABLES Final Re sult [facility] [address] [facility] Department [place] [address] * Comprehensive metabolic panel (05/27/2020 10:15 AM SUPPORT TEACHER) Sodium 140 135 - 145 mmol/L [facility] Potassium, pl 4.0 3.3 - 4.9 mmol/L [facility] Chloride 104 97 - 110 mmol/L [facility] CO2 27 22 - 32 mmol/L [facility] Anion gap 9 2 - 15 mmol/L [facility] BUN 11 8 - 25 mg/dL [facility] Creatinine 0.97 0.80 - 1.30 mg/dL [facility] Glucose 73 70 - 199 mg/dL [facility] Comment: Interpretive Data Fasting glucose >/= 126 mg/dl is diagnostic for diabetes. ?? Fasting is defined as no caloric intake for at least 8 hours. Fasting glucose between 100 mg/dl to 125 mg/dl is diagnostic of prediabetes. In a patient with classic symptoms of hyperglycemia or hyperglycemic crisis, a random glucose >/= 200 mg/dl is diagnostic for diabetes. In the absence of unequivocal hyperglycemia, results should be confirmed by repeat testing. The classification and Diagnosis of Diabetes Diabetes Care 2017;40 (Suppl. 1):S11. Current interpretive data was last revised 2017. Calcium 9.7 8.5 - 10.3 mg/dL [facility] Bilirubin, total 0.7 0.1 - 1.2 mg/dL [facility] Protein, pl 7.7 6.5 - 8.5 g/dL [facility] Albumin 4.4 3.5 - 5.0 g/dL [facility] Alk phos 51 40 - 130 Units/L [facility] ALT 44 7 - 55 Units/L [facility] AST 44 10 - 50 Units/L [facility] Blood specimen (specimen) (Blood, Venous) 05/27/2020 10:15 AM SUPPORT TEACHER 05/27/2020 1:32 PM SUPPORT TEACHER Kristie Cormier MD LAB BLOOD ORDERABLES Final Re sult Performing Organization Address City/[facility]/ZIP Co de Phone Number [facility] [place] [address] * CRP (acute phase) (05/27/2020 10:15 AM SUPPORT TEACHER) CRP 6.8 <=10.0 mg/L [facility] Blood specimen (specimen) 05/27/2020 10:15 AM SUPPORT TEACHER 05/27/2020 1:32 PM SUPPORT TEACHER Kristie Cormier MD LAB BLOOD ORDERABLES Final Re sult Performing Organization Address City/[facility] Co de Phone Number [facility] Department [place] [address] documented in this encounter Visit Diagnoses Diagnosis Ulcerative colitis with complication, unspecified location (HCC)- Primary documented in this encounter Administered Medications Inactive Administered Medications - up to 3 most recent administrations Medication Order MAR Action Action Date Dose Rate Site vedolizumab (ENTYVIO) 300 mg in sodium chloride 0.9% 250 mL IVPB 300 mg, intravenous, at 510 mL/hr, Administer over 30 Minutes, Once, On Mon05/27/20 at 1145, For 1 doseIndications:Ulcerative colitis with complication, unspecified location (HCC) New Bag 05/27/2020 10:20 AM SUPPORT TEACHER 300 mg 510 mL/hr documented in this encounter Orders Medications Ordered That Juan ht Not Have Been Administered Count Last Ordered Date First Ordered Date vedolizumab (ENTYVIO) 300 mg in sodium chloride 0.9% 250 mL IVPB 1 05/27/2020 documented in this encounter Care Teams Spinner Box Relationship Specialty Start Date End Date Tracey Acosta PA PCP - General Physician Curtain Fitter 03/06/18 documented as of this encounter
--- OUTSIDE RECORDS SUMMARY | 2024-06-16 05:07 | XMS_ITS | Encounter Summary ---
Author Organization [facility] Address [address] [place] [address] Phone Care Team Providers Care Printing Worker Supervisor Name Role Phone Tracey Acosta Primary Care Pr ovider Encounter Details Date Type Department Care Team (Late st Contact Info) Description 09/24/2019 Telephone [facility] Infusion Therapy [address] [facility] Advanced Medicine 5th [place] [address] [place] [address] Hattie Patel CMA Social History Tobacco Use Types Packs/Day Years Used Date Smoking Tobacco: Never Smokeless Tobacco: Never Alcohol Use Standard Drinks/Week Comments Not Currently 0 (1 standard drink = 0.6 oz pur e alcohol) Sex and Gender Information Value Date Recorded Sex Assigned at Not on file Legal Sex Male 7:03 AM SHADER AND TONER Gender Identity Not on file Sexual Orientation Not on file documented as of this encounter Miscellaneous Notes * Telephone Encounter - Hattie Patel CLT - 10/02/2019 8:36 AM CDT Called pt to confirm apt/covid19 screen documented in this encounter Plan of Treatment Not on file documented as of this encounter Visit Diagnoses Not on filedocumented in this encounter Care Teams Printing Worker Supervisor Relationship Specialty Start Date End Date Tracey Acosta PA PCP - General Physician Customer Support Coordinator 03/06/18 documented as of this encounter
--- OUTSIDE RECORDS SUMMARY | 2024-06-16 05:07 | XMS_ITS | Encounter Summary ---
Author Organization [facility] Address [address] [place] [address] Phone Care Team Providers Care Skip Locator Name Role Phone Tracey Acosta Primary Care Pr ovider Encounter Details Date Type Department Care Team (Late st Contact Info) Description 09/01/2020 Documentation [facility] Gastroenterology [address] [facility] Advanced Medicine 8th [place] [address] [place] [id number] Monica Fry RN Social History Tobacco Use Types Packs/Day Years Used Date Smoking Tobacco: Never Smokeless Tobacco: Never Alcohol Use Standard Drinks/Week Comments Not Currently 0 (1 standard drink = 0.6 oz pur e alcohol) Sex and Gender Information Value Date Recorded Sex Assigned at Not on file Legal Sex Male 7:03 AM COLOR MAKER DYER Gender Identity Not on file Sexual Orientation Not on file documented as of this encounter Progress Notes * Monica Fry RN - 09/01/2020 1:30 PM CDT Plan: - restart Entyvio with reloading documented in this encounter Plan of Treatment Not on file documented as of this encounter Visit Diagnoses Not on filedocumented in this encounter Care Teams Skip Locator Relationship Specialty Start Date End Date Tracey Acosta PA PCP - General Physician Auto Body Customizer 03/06/18 documented as of this encounter
--- OUTSIDE RECORDS SUMMARY | 2024-06-16 05:07 | XMS_ITS | Encounter Summary ---
Author Organization [facility] Address [address] [place] [address] Care Team Providers Care Electrical Transmission Engineer Name Role Phone Tracey Acosta Primary Care Pr ovider Encounter Details Date Type Department Care Team (Late st Contact Info) Description 09/22/2020 10:55 AM CDT Lab [address] [address] Ulcerative colitis with complication, unspecified location (CMS/HCC) Social History Tobacco Use Types Packs/Day Years Used Date Smoking Tobacco: Never Smokeless Tobacco: Never Alcohol Use Standard Drinks/Week Comments Not Currently 0 (1 standard drink = 0.6 oz pur e alcohol) Sex and Gender Information Value Date Recorded Sex Assigned at Not on file Legal Sex Male 7:03 AM MEDICAL BILLER Gender Identity Not on file Sexual Orientation Not on file documented as of this encounter Plan of Treatment Not on file documented as of this encounter Procedures Procedure Name Priority Date/Time Associated Diagnosis Comments CRP (ACUTE PHASE) Routine 09/22/2020 10: 55 AM CDT Ulcerative colitis with complication, unspecified location (CMS/HCC) documented in this encounter Results * CRP (acute phase) (09/22/2020 10:55 AM CDT) CRP 4.6 <=10.0 mg/L [facility] Blood specimen (specimen) 09/22/2020 10:55 AM CDT 09/22/2020 11:10 AM CDT us Kristie Cormier MD LAB BLOOD ORDERABLES Final Re sult [facility] Department [place] [address] documented in this encounter Visit Diagnoses Diagnosis Ulcerative colitis with complication, unspecified location (HCC) documented in this encounter Care Teams Electrical Transmission Engineer Relationship Specialty Start Date End Date Tracey Acosta PA PCP - General Physician Cardroom Drawing Runner 03/06/18 documented as of this encounter
--- OUTSIDE RECORDS SUMMARY | 2024-06-16 05:07 | XMS_ITS | Encounter Summary ---
Author Organization [facility] Address [address] [place] [address] Phone Care Team Providers Care Chemistry Department Chair Name Role Phone Tracey Acosta Primary Care Pr ovider Encounter Details Date Type Department Care Team (Late st Contact Info) Description 01/07/2021 Documentation [facility] Gastroenterology [address] 8th [place] [address] [place] [phone] Monica Fry, RN Social History Tobacco Use Types Packs/Day Years Used Date Smoking Tobacco: Never Smokeless Tobacco: Never Alcohol Use Standard Drinks/Week Comments Not Currently 0 (1 standard drink = 0.6 oz pur e alcohol) Sex and Gender Information Value Date Recorded Sex Assigned at Not on file Legal Sex Male 7:03 AM TRACTOR SWEEPER OPERATOR Gender Identity Not on file Sexual Orientation Not on file documented as of this encounter Progress Notes * Monica Fry RN - 01/07/2021 3:09 PM CDT Received vm from pt stating that he had been off of his entyvio infusions for a while and wanted ifhe could restart them. Returned call. lvm informing pt that he would need to meet with [facility] restarting entyvio documented in this encounter Plan of Treatment Not on file documented as of this encounter Visit Diagnoses Not on filedocumented in this encounter Care Teams Chemistry Department Chair Relationship Specialty Start Date End Date Tracey Acosta PA PCP - General Physician Drum Drier Operator 03/06/18 documented as of this encounter
--- OUTSIDE RECORDS SUMMARY | 2024-06-16 05:07 | XMS_ITS | Encounter Summary ---
Author Organization [facility] Address [address] [place] [address] Phone Care Team Providers Care Glass Forming Crew Member Name Role Phone Tracey Acosta Primary Care Pr ovider Encounter Details Date Type Department Care Team (Late st Contact Info) Description 09/22/2020 8:[address] [facility] Endocrinology Metabolism and Lipid [address] [facility] [address] [facility] 5th [place] [address] [place] [address] Ulcerative colitis with complication, unspecified location (CMS/HCC) Social History Tobacco Use Types Packs/Day Years Used Date Smoking Tobacco: Never Smokeless Tobacco: Never Alcohol Use Standard Drinks/Week Comments Not Currently 0 (1 standard drink = 0.6 oz pur e alcohol) Sex and Gender Information Value Date Recorded Sex Assigned at Not on file Legal Sex Male 7:03 AM INCIDENT ANALYST Gender Identity Not on file Sexual Orientation Not on file documented as of this encounter Plan of Treatment Not on file documented as of this encounter Visit Diagnoses Diagnosis Ulcerative colitis with complication, unspecified location (HCC) documented in this encounter Care Teams Glass Forming Crew Member Relationship Specialty Start Date End Date Tracey Acosta PA PCP - General Physician Criminal Lawyer 03/06/18 documented as of this encounter
--- OUTSIDE RECORDS SUMMARY | 2024-06-16 05:07 | XMS_ITS | Encounter Summary ---
Author Organization [facility] Healthcare Address [address] [place] [address] Care Team Providers Care Butadiene Converter Helper Name Role Phone Tracey Acosta Primary Care Pr ovider Encounter Details Date Type Department Care Team (Late st Contact Info) Description 07/29/2019 2:45 PM LIBRARY ASSISTANT Lab [address] [address] Ulcerative colitis with complication, unspecified location (CMS/HCC) Social History Tobacco Use Types Packs/Day Years Used Date Smoking Tobacco: Never Smokeless Tobacco: Never Alcohol Use Standard Drinks/Week Comments Not Currently 0 (1 standard drink = 0.6 oz pur e alcohol) Sex and Gender Information Value Date Recorded Sex Assigned at Not on file Legal Sex Male 7:03 AM LIBRARY ASSISTANT Gender Identity Not on file Sexual Orientation Not on file documented as of this encounter Plan of Treatment Not on file documented as of this encounter Procedures Procedure Name Priority Date/Time Associated Diagnosis Comments CRP (ACUTE PHASE) Routine 07/29/2019 1:2 5 PM LIBRARY ASSISTANT Ulcerative colitis with complication, unspecified location (CMS/HCC) documented in this encounter Results * CRP (acute phase) (07/29/2019 1:25 PM LIBRARY ASSISTANT) CRP 3.4 <=10.0 mg/L [facility] Blood specimen (specimen) 07/29/2019 1:25 PM LIBRARY ASSISTANT 07/29/2019 2:38 PM LIBRARY ASSISTANT Kristie Cormier MD LAB BLOOD ORDERABLES Final Re sult [facility] Department [place] [address] documented in this encounter Visit Diagnoses Diagnosis Ulcerative colitis with complication, unspecified location (HCC) documented in this encounter Care Teams Butadiene Converter Helper Relationship Specialty Start Date End Date Tracey Acosta PA PCP - General Physician First Aid Director 03/06/18 documented as of this encounter
--- OUTSIDE RECORDS SUMMARY | 2024-06-16 05:07 | XMS_ITS | Encounter Summary ---
Author Organization [facility] Healthcare Address [address] [place] [address] Care Team Providers Care Maternal Fetal Physician Name Role Phone Tracey Acosta Primary Care Pr ovider Encounter Details Date Type Department Care Team (Late st Contact Info) Description 10/21/2019 5:20 PM CDT Lab [address] [address] Ulcerative colitis with complication, unspecified location (CMS/HCC) Social History Tobacco Use Types Packs/Day Years Used Date Smoking Tobacco: Never Smokeless Tobacco: Never Alcohol Use Standard Drinks/Week Comments Not Currently 0 (1 standard drink = 0.6 oz pur e alcohol) Sex and Gender Information Value Date Recorded Sex Assigned at Not on file 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 Gender Identity Not on file Sexual Orientation Not on file documented as of this encounter Plan of Treatment Not on file documented as of this encounter Procedures Procedure Name Priority Date/Time Associated Diagnosis Comments T-SPOT.TB Routine 10/21/2019 3:10 PM CDT Ulcerative colitis with complication, unspecified location (CMS/HCC) DIFFERENTIAL AUTO Routine 10/21/2019 3:1 0 PM CDT Ulcerative colitis with complication, unspecified location (CMS/HCC) TPMT ACTIVITY Routine 10/21/2019 3:10 PM CDT Ulcerative colitis with complication, unspecified location (CMS/HCC) IRON PROFILE W/ IBC Routine 10/21/2019 3 :10 PM CDT Ulcerative colitis with complication, unspecified location (CMS/HCC) CBC WITH AUTO DIFFERENTIAL Routine 10/21/2019 3:10 PM CDT Ulcerative colitis with complication, unspecified location (CMS/HCC) VITAMIN D 25 HYDROXY Routine 10/21/2019 3:10 PM CDT Ulcerative colitis with complication, unspecified location (CMS/HCC) HEPATITIS B SURFACE ANTIBODY (IMMUNE STATUS) Routine 10/21/2019 3:10 PM CDT Ulcerative colitis with complication, unspecified location (CMS/HCC) CRP (ACUTE PHASE) Routine 10/21/2019 3:1 0 PM CDT Ulcerative colitis with complication, unspecified location (CMS/HCC) FOLATE Routine 10/21/2019 3:10 PM CDT Ulcerative colitis with complication, unspecified location (CMS/HCC) VITAMIN B12 Routine 10/21/2019 3:10 PM CDT Ulcerative colitis with complication, unspecified location (CMS/HCC) COMPREHENSIVE METABOLIC PANEL Routine 10/21/2019 3:10 PM CDT Ulcerative colitis with complication, unspecified location (CMS/HCC) documented in this encounter Results * Differential, auto (10/21/2019 3:10 PM CDT) Neutrophil abs 3.1 1.7 - 6.5 K/cumm [facility] Imm gran abs 0.0 0.0 - 0.1 K/cumm [facility] Lymphocyte abs 3.0 0.8 - 3.3 K/cumm [facility] Monocyte abs 0.6 0.2 - 0.8 K/cumm [facility] Eosinophil abs 0.3 0.0 - 0.5 K/cumm [facility] Basophil abs 0.1 0.0 - 0.1 K/cumm [facility] Neutrophil pct 44.5 % [facility] Comment: Interpretive Data Percent cell count reference ranges are not reported, since discordance with absolute values may lead to misinterpretation of CBC data. Current Interpretive Data was last revised on 2017. Imm gran pct 0.3 % [facility] Comment: Interpretive Data Percent cell count reference ranges are not reported, since discordance with absolute values may lead to misinterpretation of CBC data. Current Interpretive Data was last revised on 2017. Lymphocyte pct 42.0 % [facility] Comment: Interpretive Data Percent cell count reference ranges are not reported, since discordance with absolute values may lead to misinterpretation of CBC data. Current Interpretive Data was last revised on 2017. Monocyte pct 8.0 % [facility] Comment: Interpretive Data Percent cell count reference ranges are not reported, since discordance with absolute values may lead to misinterpretation of CBC data. Current Interpretive Data was last revised on 2017. Eosinophil pct 4.3 % [facility] Comment: Interpretive Data Percent cell count reference ranges are not reported, since discordance with absolute values may lead to misinterpretation of CBC data. Current Interpretive Data was last revised on 2017. Basophil pct 0.9 % [facility] Comment: Interpretive Data Percent cell count reference ranges are not reported, since discordance with absolute values may lead to misinterpretation of CBC data. Current Interpretive Data was last revised on 2017. Blood specimen (specimen) 10/21/2019 3:10 PM CDT 10/21/2019 5:00 PM CDT Kristie Cormier MD LAB BLOOD ORDERABLES Final Re sult [facility] [place] [address] * CBC with auto differential (10/21/2019 3:10 PM CDT) WBC 7.0 3.8 - 9.9 K/cumm [facility] Hgb 15.0 13.0 - 17.5 g/dL [facility] Hct 45.0 38.9 - 50.3 % [facility] Plt 373 150 - 400 K/cumm [facility] MPV 9.9 9.1 - 12.3 fL [facility] RBC 5.30 4.30 - 5.80 M/cumm [facility] MCV 84.9 81.3 - 96.4 fL [facility] MCH 28.3 27.1 - 33.3 pg [facility] MCHC 33.3 32.3 - 35.7 g/dL [facility] RDW CV 13.2 11.1 - 14.9 % [facility] RDW SD 41.2 35.7 - 48.1 fL [facility] NRBC abs 0.00 0.00 - 0.01 K/cumm [facility] Blood specimen (specimen) 10/21/2019 3:10 PM CDT 10/21/2019 5:00 PM CDT Kristie Cormier MD LAB BLOOD ORDERABLES Final Re sult [facility] [place] [address] * (ABNORMAL) Comprehensive metabolic panel (10/21/2019 3:10 PM CDT) Sodium 140 135 - 145 mmol/L [facility] Potassium, pl 3.7 3.3 - 4.9 mmol/L [facility] Chloride 103 97 - 110 mmol/L [facility] CO2 27 22 - 32 mmol/L [facility] Anion gap 10 2 - 15 mmol/L [facility] BUN 14 8 - 25 mg/dL [facility] Creatinine 0.98 0.80 - 1.30 mg/dL [facility] Glucose 97 70 - 199 mg/dL [facility] Comment: Interpretive Data Fasting glucose >/= [...] interpretive data was last revised 2017. Calcium 9.8 8.5 - 10.3 mg/dL [facility] Bilirubin, total 1.3(H) 0.1 - 1.2 mg/dL [facility] Protein, pl 7.6 6.5 - 8.5 g/dL [facility] Albumin 4.6 3.5 - 5.0 g/dL [facility] Alk phos 50 40 - 130 Units/L [facility] ALT 79(H) 7 - 55 Units/L [facility] AST 101(H) 10 - 50 Units/L [facility] Blood specimen (specimen) (Blood, Venous) 10/21/2019 3:10 PM CDT 10/21/2019 5:00 PM CDT Kristie Cormier MD LAB BLOOD ORDERABLES Final Re sult Performing Organization Address [facility] Co de Phone Number [facility] [place] [place] [address] * Iron profile w/ IBC (10/21/2019 3:10 PM CDT) Iron 131 50 - 150 mcg/dL [facility] TIBC 287 250 - 400 mcg/dL [facility] Transferrin saturation 46 20 - 50 % [facility] Blood specimen (specimen) 10/21/2019 3:10 PM CDT 10/21/2019 5:00 PM CDT Kristie Cormier MD LAB BLOOD ORDERABLES Final Re sult Performing Organization Address City/[facility]/ZIP Co de Phone Number [facility] [place] [address] * T-SPOT.TB (10/21/2019 3:10 PM CDT) T-SPOT.TB Negative Negative [facility] Comment: Limitations from the T-SPOT.TB Package Insert p.15 Results from T-SPOT.TB testing must be used in conjunction with each individual's epidemiological history, current medical status and results of other diagnostic evaluations.The performance of T-SPOT.TB has not been adequately evaluated with specimens from individuals younger than 17 years, in women, and in patients with hemophilia. A false positive result was obtained for T-SPOT.TB when tested in subjects with M. xenopi, M. kansasii and M. gordonae. While ESAT-6 and CFP10 antigens are absent from BCG strains of M. bovis and from most environmental mycobacteria, it is possible that a positive T-SPOT.TB result may be due to infection with M. kansasii, M. szulgai, M. gordonae or M. marinum. Alternative tests would be required if these infections are suspected. A negative test result does not exclude the possibility of exposure to, or infection with M. tuberculosis. Patients with recent exposure to TB infected individuals exhibiting a negative T-SPOT.TB result should be considered for retesting within 6 weeks or if other relevant clinical symptoms indicate possible infection. A positive test result does not rule in active TB disease; other tests should be performed to confirm the diagnosis of active TB disease such as sputum smear and culture, PCR, and chest radiography. T-SPOT.TB has not been evaluated in subjects who have received >1 month of anti-TB therapy. Refrigerated and frozen samples are not recommended for use with T-SPOT.TB test. T-Spot testing performed by [facility], [address] [place] [address]. [id number] A negative test result does not exclude the possibility of exposure to or infection with Mycobacterium tuberculosis (M. tuberculosis). ??Patients with recent exposure to TB infected individuals exhibiting a negative T-SPOT.TB result should be considered for retesting within 6 weeks or if other relevant clinical symptoms indicate. ??Results from T-SPOT.TB testing must be used in conjunction with each individual's epidemiological history, current medical status, and results of other diagnostic evaluations. ??The T-SPOT.TB test is qualitative and results are reported as positive, borderline or negative, given that the test controls perform as expected. In line with the Centers for Disease Control and Prevention's 2010 recommendation to report quantitative measurements alongside the qualitative result, the laboratory provides spot counts for informational purposes only. ??The T-SPOT.TB test should not be interpreted as a quantitative test. T-SPOT.TB Panel A Spot Count 0 [facility] T-SPOT.TB Panel B Spot Count 0 [facility] T-SPOT.TB Negative Control Passed [facility] T-SPOT.TB Positive Control Passed [facility] Blood specimen (specimen) 10/21/2019 3:10 PM CDT 10/21/2019 5:08 PM CDT Kristie Cormier MD LAB MICROBIOLOGY - GENERAL OR DERABLES Final Result Performing Organization Address City/[facility] Co de Phone Number [facility] Department [place] [address] * Vitamin D 25 hydroxy (10/21/2019 3:10 PM CDT) [facility] Vitamin D 25-OH 31 30 - 80 ng/mL [facility] Blood specimen (specimen) 10/21/2019 3:10 PM CDT 10/21/2019 5:00 PM CDT Kristie Cormier MD LAB BLOOD ORDERABLES Final Re sult Performing Organization Address [facility] de Phone Number [facility] [place] [place] [address] * Vitamin B12 (10/21/2019 3:10 PM CDT) [facility] Vitamin B12 514 230 - 1,250 pg/mL [facility] Blood specimen (specimen) 10/21/2019 3:10 PM CDT 10/21/2019 5:00 PM CDT Kristie Cormier MD LAB BLOOD ORDERABLES Final Re sult Performing Organization Address [facility] Co de Phone Number [facility] [place] [address] * (ABNORMAL) TPMT activity profile, RBC (10/21/2019 3:10 PM CDT) Pathologist [facility] 6-METHYLMERCAPTOPURI NE 4.31 3.00 - 6.66 [facility] 6-Methylmercaptopuri ne Riboside 7.07 5.04 - 9.57 [facility] 6-METHYLTHIOGUANINE RIBOSIDE 6.01(H) 2.70 - 5.84 [facility] Interpretation,Comp See Footnote [facility] Comment: *Normal* In this whole blood sample, the profile of activity of thiopurine methyltransferase using three different substrates was essentially normal. ADDITIONAL INFORMATION Liquid Chromatography-Tandem Mass Spectrometry (LC-MS/MS) This test was developed and its performance characteristics determined by [facility] in a manner consistent with CLIA requirements. This test has not been cleared or approved by the U.S. Food and Drug Administration. Reviewed by See Footnote [facility] Comment: RESULT: Amaury Huntley M.D. Test Performed by: [place] [address] Vein Pumper: Jose Hatch M.D. Ph.D.; CLIA# [id number] Blood specimen (specimen) 10/21/2019 3:10 PM CDT 10/21/2019 5:33 PM CDT us Kristie Cormier MD LAB BLOOD ORDERABLES Final Re sult [facility] [place] [address] * Hepatitis B surface antibody (immune status) (10/21/2019 3:10 PM CDT) HBsAb (immune status) Equivocal [facility] Comment: Interpretive Data Nonreactive: This result is consistent with a lack of immunity to Hepatitis B Virus when used in the setting of routine screening. Equivocal: The immune status of the individual should be further assessed, if appropriate, after consideration of clinical status, risk factors, and additional diagnostic information. Reactive: This result is consistent with immunity to Hepatitis B Virus when used in the setting of routine screening. Current interpretive data was last revised on 19. Blood specimen (specimen) 10/21/2019 3:10 PM CDT 10/21/2019 5:00 PM CDT Kristie Cormier MD LAB MICROBIOLOGY - GENERAL OR DERABLES Final Result Performing Organization Address [facility] [place] [address] * Folate (10/21/2019 3:10 PM CDT) Folic acid 9.9 >=5.0 ng/mL [facility] Blood specimen (specimen) 10/21/2019 3:10 PM CDT 10/21/2019 5:00 PM CDT Kristie Cormier MD LAB BLOOD ORDERABLES Final Re sult Performing Organization Address [facility] [place] [address] * CRP (acute phase) (10/21/2019 3:10 PM CDT) CRP 5.1 <=10.0 mg/L [facility] Blood specimen (specimen) 10/21/2019 3:10 PM CDT 10/21/2019 5:00 PM CDT Kristie Cormier MD LAB BLOOD ORDERABLES Final Re sult Performing Organization Address [facility] [place] [address] documented in this encounter Visit Diagnoses Diagnosis Ulcerative colitis with complication, unspecified location (HCC) documented in this encounter Care Teams Maternal Fetal Physician Relationship Specialty Start Date End Date Tracey Acosta PA PCP - General Physician Sound System Installer 03/06/18 documented as of this encounter
--- OUTSIDE RECORDS SUMMARY | 2024-06-16 05:07 | XMS_ITS | Encounter Summary ---
Author Organization [facility] Address [address] [place] [address] Phone Care Team Providers Care Boring Machine Feeder Name Role Phone Tracey Acosta Primary Care Pr ovider Encounter Details Date Type Department Care Team (Late st Contact Info) Description 07/16/2019 Telephone [facility] Gastroenterology [facility] 8th [place] [address] [place] [address] Monica Fry RN Social History Tobacco Use Types Packs/Day Years Used Date Smoking Tobacco: Never Smokeless Tobacco: Never Alcohol Use Standard Drinks/Week Comments Not Currently 0 (1 standard drink = 0.6 oz pur e alcohol) Sex and Gender Information Value Date Recorded Sex Assigned at Not on file Legal Sex Male 7:03 AM SKEIN YARN DYER Gender Identity Not on file Sexual Orientation Not on file documented as of this encounter Miscellaneous Notes * Telephone Encounter - Monica Fry RN - 07/16/2019 12:21 PM CST lvm informing pt that there was auth for his Entyvio. Asked pt to reschedule alma. N YARN DYER documented in this encounter Plan of Treatment Not on file documented as of this encounter Visit Diagnoses Not on filedocumented in this encounter Care Teams Boring Machine Feeder Relationship Specialty Start Date End Date Tracey Acosta PA PCP - General Physician Bleacher [employer] 03/06/18 documented as of this encounter
--- OUTSIDE RECORDS SUMMARY | 2024-06-16 05:07 | XMS_ITS | Encounter Summary ---
Author Organization [facility] Address [address] [place] [address] Phone Care Team Providers Care Supervisor Plate Forming Name Role Phone Tracey Acosta Primary Care Pr ovider Encounter Details Date Type Department Care Team (Late st Contact Info) Description 09/24/2018 Orders Only [facility] Gastroenterology [address] [facility] Medicine 8th [place] [address] [place] [address] Kristie Cormier MD [address] [place], [place] [id number] Ulcerative colitis with complication, unspecified location (CMS/HCC) (Primary Dx) Social History Tobacco Use Types Packs/Day Years Used Date Smoking Tobacco: Never Smokeless Tobacco: Never Alcohol Use Standard Drinks/Week Comments Not Currently 0 (1 standard drink = 0.6 oz pur e alcohol) Sex and Gender Information Value Date Recorded Sex Assigned at Not on file 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 documented in this encounter Miscellaneous Notes * Addendum Note - Monica Villarreal RN - 09/24/2018 9:43 AM CDTAddended by: MONICA VILLARREAL on: 02/07/2019 01:19 PM Modules accepted: Orders documented in this encounter Plan of Treatment Not on file documented as of this encounter Visit Diagnoses Diagnosis Ulcerative colitis with complication, unspecified location (HCC)- Primary documented in this encounter Care Teams Supervisor Plate Forming Relationship Specialty Start Date End Date Tracey Acosta PA PCP - General Physician Chinese Herbalist 03/06/18 documented as of this encounter
--- OUTSIDE RECORDS SUMMARY | 2024-06-16 05:07 | XMS_ITS | Encounter Summary ---
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
--- OUTSIDE RECORDS SUMMARY | 2024-06-16 05:07 | XMS_ITS | Encounter Summary ---
Author Organization [facility] Address [address] [place] [address] Phone Care Team Providers Care Service Parts Coordinator Name Role Phone Tracey Acosta Primary Care Pr ovider Encounter Details Date Type Department Care Team (Late st Contact Info) Description 01/02/2023 2:30 PM CDT Office Visit [facility] [address] [facility] 2nd [address] [place] [address] Senait De La Fuente NP [address] [place] [address] Ulcerative colitis with complication, unspecified location (HCC) (Primary Dx) Social History Tobacco Use Types Packs/Day Years Used Date Smoking Tobacco: Never Smokeless Tobacco: Never Tobacco Cessation:Counseling Given: Not Answered Alcohol Use Standard Drinks/Week Comments Not Currently 0 (1 standard drink = 0.6 oz pur e alcohol) Sex and Gender Information Value Date Recorded Sex Assigned at Not on file Legal Sex Male 7:03 AM 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 Gender Identity Not on file Sexual Orientation Not on file documented as of this encounter Last Filed Vital Signs Vital Sign Reading Time Taken Comments Blood Pressure 109/67 01/02/2023 2:27 PM CDT Pulse 61 01/02/2023 2:27 PM CDT Temperature 36.8 ??C (98.2 ??F) 01/02/2023 2:27 PM CD T Respiratory Rate - - Oxygen Saturation 94% 01/02/2023 2:27 PM CDT Inhaled Oxygen Concentration - - Weight 104.8 kg (231 lb) 01/02/2023 2:27 PM CDT Height - - Body Mass Index 32.22 03/22/2022 2:48 PM CDT documented in this encounter Patient Instructions * Patient Instructions* Senait De La Fuente NP - 01/02/2023 2:30 PM CDT Colonoscopy will schedule documented in this encounter Progress Notes * Senait De La Fuente NP - 01/02/2023 2:30 PM CDT NAME: Balbir Noriega : 1995 DATE: 01/02/2023 Reason for visit: Ulcerative colitis HPI: Balbir Noriega is a 27 y.o. male with a history of ulcerative colitis presenting today for follow-up. Patient was initially diagnosed with ulcerative colitis in 2010 and placed on Lialda and p.r.n. Uceris. Colonoscopy in August 2018 demonstrated inflammation in the hepatic flexure Rowland 3, with inflamation from anus to rectum may 2 score, pseudopolyps in rectosigmoid colon, with histology showing chronic active colitis with crypt abscesses, paneth cell metaplasia, increased eosinophils, inflammatory pseudopolyps. MRE in April 2019 demonstrated active colitis in the distal descending colon to rectum consistent with a history of ulcerative colitis. Plan was to initiate Entyvio and patient received 2 doses once in October 2019 and another in May 2020. Unfortunately the infusions were subsequently stopped as his insurance plans switched . He was recently seen in clinic in August of this year with the plan to reinitiate Entyvio with loading. Patient received his 1st infusion on September 22 however was subsequently lost to follow-up. He then called the clinic back last month in order to reschedule his infusions and was advised to make aclinic appointment prior. Due to trouble reliably getting Entyvio due to his schedule and ability for compliance he was changed to xeljanz. He tells me that he only did about one month of xeljanz andself stopped around 02/2021. Has been on no therapy since then. Despite not being on maintenance therapy he feels like he is doing okay. Energy level good. He and his are expecting their second child. He is having 1-2 stools daily. Feels like his bowel habits are quite regular. Denies any hematochezia. Denies any abdominal pain. Denies any joint pain. Patient Active Problem List Diagnosis Date Noted High risk medications (not anticoagulants) long-term use 04/22/2019 Ulcerative colitis with complication (HCC) 07/17/2018 Year of diagnosis: 2010 Year symptoms began: 2010 Distribution: Extensive (E3). Extraintestinal manifestations: none Complications: none Prior treatments: mesalamine, uceris Current treatment: Entyvio Prior surgeries: none Endoscopies: Colonoscopy 08/2018 The examined portion of the ileum was normal. Colitis. Inflammation was found inthe hepatic flexure. This was graded as Rowland Score 3 (severe disease). Normal mucosa in the ascending colon and in the cecum. Normal mucosa in the descending colon. Moderately active (Rowland Score 2) ulcerative colitis. Inflammation was found from the anus to the rectum. This was graded as Rowland Score2 (moderate disease). Pseudopolyps in the recto-sigmoid colon. 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 No current facility-administered medications for this visit. Review of Systems: Constitutional: Negative. HENT: Negative for sore throat and trouble swallowing. Eyes: Negative. Respiratory: Negative. Cardiovascular: Negative. Gastrointestinal: See HPI Endocrine: Negative. Genitourinary: Negative. Musculoskeletal: Negative. Skin: Negative. Allergic/Immunologic: Negative. Neurological: Negative. Hematological: Negative. Psychiatric/Behavioral: Negative. Breast: Negative. Physical Exam: BP 109/67 Pulse 61 Temp 36.8 ??C (98.2 ??F) Wt 104.8 kg (231 lb) SpO2 94% BMI 32.22 kg/m?? GENERAL: Well-appearing, in no acute distress. HEENT: Sclerae anicteric. Oropharynx without lesion. NECK: Supple without lymphadenopathy or thyromegaly. LUNGS: Clear to auscultation bilaterally, breath sounds symmetrical bilaterally CARDIOVASCULAR: Regular rate and rhythm with no murmur, rub or gallop ABDOMEN: Flat, soft, non-tender; bowel sounds normal active in all four quadrants, no hepatosplenomegaly, or palpable masses RECTAL: deferred EXTREMITIES: No clubbing, cyanosis or edema. SKIN: No rash or jaundice. NEUROLOGIC: Grossly nonfocal on simple observation with normal insight, memory, affect, and orientation Imaging Review none Assessment/Plan: Ulcerative colitis Initially diagnosed with ulcerative colitis in 2010 and placed on Lialda and p.r.n. Uceris. Colonoscopy in August 2018 demonstrated inflammation in the hepatic flexure Rowland 3, with inflamation from anus to rectum may 2 score, pseudopolyps in rectosigmoid colon, with histology showing chronic active c olitis with crypt abscesses, paneth cell metaplasia, increased eosinophils, inflammatory pseudopolyps. MRE in April 2019 demonstrated active colitis in the distal descending colon to rectum consistent with a history of ulcerative colitis. Plan was to initiate Entyvio and patient received 2 dosesbut was then lost to follow up. Seen in clinic again in 08/2020 where plan was to reinitiate Entivyowith loading doses. Received one dose 09/2020 but then lost to follow up again. At last visit lan to switch to xeljanz. Did for a month then self stopped. Has not had any therapy since 02/2021.Despite this feels like he is doing okay. -last colonoscopy in 2019, will repeat at this time -if active inflammation found consider restarting xeljanz No problem-specific Assessment & Plan notes found for this encounter. Follow up: No follow-ups on file. documented in this encounter Plan of Treatment Not on file documented as of this encounter Visit Diagnoses Diagnosis Ulcerative colitis with complication, unspecified location (HCC)- Primary documented in this encounter Discontinued Medications Medication Sig Discontinue Reason Start Date End Da te tofacitinib (Xeljanz) 10 mg tablet Take 1 tablet (10 mg total) by mouth 2 (two) times a day Therapy completed 02/22/2021 01/02/2023 prednisoLONE acetate (PRED FORTE) 1 % ophthalmic suspension Therapy completed 02/07/2019 01/03/20 23 documented as of this encounter Care Teams Service Parts Coordinator Relationship Specialty Start Date End Date Tracey Acosta PA PCP - General Physician Regional Wildlife Agent 03/06/18 documented as of this encounter
--- OUTSIDE RECORDS SUMMARY | 2024-06-16 05:07 | XMS_ITS | Encounter Summary ---
Author Organization [facility] Address [address] [place] [address] Phone Care Team Providers Care Popcorn Attendant Name Role Phone Tracey Acosta Primary Care Pr ovider Encounter Details Date Type Department Care Team (Late st Contact Info) Description 01/07/2022 Orders Only [facility] [address] [facility] [address]th [place] [address] [place] [id number] Kristie Cormier MD [address] [place], [place] [id number] High risk medications (not anticoagulants) long-term use (Primary Dx); Ulcerative colitis with complication, unspecified location (HCC) Social History Tobacco Use Types Packs/Day Years Used Date Smoking Tobacco: Never Smokeless Tobacco: Never Alcohol Use Standard Drinks/Week Comments Not Currently 0 (1 standard drink = 0.6 oz pur e alcohol) Sex and Gender Information Value Date Recorded Sex Assigned at Not on file Legal Sex Male 7:03 AM CHRONIC DISEASE EPIDEMIOLOGIST Gender Identity Not on file Sexual Orientation Not on file documented as of this encounter Progress Notes * Nina Rosenbaum - 01/07/2022 8:50 AM CDT Rcv'd auto renewal PA from [facility] (Scales: [id number]) for Xeljanz 10mg tablets. Last seen 01/19/21. Pt needs to schedule f/u appt and get safety labs drawn. Letter sent to pt via [email or web address]. documented in this encounter Plan of Treatment Not on file documented as of this encounter Visit Diagnoses Diagnosis High risk medications (not anticoagulants) long-term use- Primary Encounter for long-term (current) use of other medications Ulcerative colitis with complication, unspecified location (HCC) documented in this encounter Care Teams Popcorn Attendant Relationship Specialty Start Date End Date Tracey Acosta PA PCP - General Physician Physician Obstetrician 03/06/18 documented as of this encounter
--- OUTSIDE RECORDS SUMMARY | 2024-06-16 05:07 | XMS_ITS | Encounter Summary ---
Author Organization [facility] Address [address] [place] [id number] Care Team Providers Care Unit Nurse Name Role Phone Tracey Acosta Primary Care Pr ovider Encounter Details Date Type Department Care Team (Late st Contact Info) Description 05/22/2019 Documentation Gastroententerology Michelle Kirby BS Social History Tobacco Use Types Packs/Day Years Used Date Smoking Tobacco: Never Smokeless Tobacco: Never Alcohol Use Standard Drinks/Week Comments Not Currently 0 (1 standard drink = 0.6 oz pur e alcohol) Sex and Gender Information Value Date Recorded Sex Assigned at Not on file Legal Sex Male 7:03 AM CLINICAL PROVIDER TRAINER Gender Identity Not on file Sexual Orientation Not on file documented as of this encounter Miscellaneous Notes * Research Note - Michelle Kirby BS - 05/22/2019 11:59 PM CST Patient consented. ICAL PROVIDER TRAINER documented in this encounter Plan of Treatment Not on file documented as of this encounter Visit Diagnoses Not on filedocumented in this encounter Care Teams Unit Nurse Relationship Specialty Start Date End Date Tracey Acosta PA PCP - General Physician Jewelry Salesperson 03/06/18 documented as of this encounter
--- OUTSIDE RECORDS SUMMARY | 2024-06-16 05:07 | XMS_ITS | Encounter Summary ---
Author Organization [facility] Address [address] [place] [address] Phone Care Team Providers Care Watch Crystal Edge Grinder Name Role Phone Tracey Acosta Primary Care Pr ovider Reason for Referral * Diagnostic Imaging (Routine) - Closed Specialty Diagnoses / Procedures Referred By Tania carlton Referred To Contact Radiology Diagnoses Ulcerative colitis with complication, unspecified location (HCC) Procedures MRI Enterography (abdomen) W WO Contrast Kristie Cormier MD [address] [place] [address] Phone: tel: fax: [facility] [address] [place] [address] Referral ID Status Reason Start Date Expiration Date Visits Re quested Visits Authorized [id number] Closed 04/22/2019 10/31/2020 1 1 ENT OFFICE REP Reason for Visit * Gastroenterology (Routine) - Closed Specialty Diagnoses / Procedures Referred By Tania carlton Referred To Contact Gastroenterology Diagnoses Ulcerative colitis, unspecified with unspecified complications Procedures RETURN Tracey Acosta PA Phone: tel: fax: Kristie Cormier MD [address] [place] [address] Phone: tel: fax: Referral ID Status Reason Start Date Expiration Date Visits Re quested Visits Authorized [id number] Closed 04/22/2019 03/12/2021 99 99 Encounter Details Date Type Department Care Team (Late st Contact Info) Description 04/22/2019 9:30 AM PATIENT OFFICE REP Office Visit [facility] Gastroenterology [address] [facility] 8th [place] [address] [place] [address] Kristie Cormier MD [address] [place] [address] Ulcerative colitis with complication, unspecified location (CMS/HCC) (Primary Dx); High risk medications (not anticoagulants) long-term use Social History Tobacco Use Types Packs/Day Years Used Date Smoking Tobacco: Never Smokeless Tobacco: Never Alcohol Use Standard Drinks/Week Comments Not Currently 0 (1 standard drink = 0.6 oz pur e alcohol) Sex and Gender Information Value Date Recorded Sex Assigned at Not on file Legal Sex Male 7:03 AM PATIENT OFFICE REP Gender Identity Not on file Sexual Orientation Not on file documented as of this encounter Last Filed Vital Signs Vital Sign Reading Time Taken Comments Blood Pressure 147/82 04/22/2019 10:10 AM PATIENT OFFICE REP Pulse 64 04/22/2019 10:10 AM PATIENT OFFICE REP Temperature 36.9 ??C (98.5 ??F) 04/22/2019 10:[address] Respiratory Rate - - Oxygen Saturation - - Inhaled Oxygen Concentration - - Weight 98.7 kg (217 lb 9.6 oz) 04/22/2019 10:10 AM PATIENT OFFICE REP Height 180.3 cm (5' 11 ) 04/22/2019 10:10 AM PATIENT OFFICE REP Body Mass Index 30.35 04/22/2019 10:10 AM PATIENT OFFICE REP documented in this encounter Progress Notes * Senait De La Fuente NP - 04/22/2019 9:30 AM CST Subjective NAME: Balbir Noriega : 1995 DATE: 04/22/2019 Referred here Primary Care Physician: SCOTT Sinclair Consult requested by: Tracey Acosta Chief Complaint: Ulcerative colitis HPI Balbir A Spohr, is a 24 y.o.male who presents for follow up of ulcerative colitis. Diagnosed in 2010. Had been maintained previously on lialda and PRN uceris. Had colonoscopy in August 2018 that showed active disease despite lialda. He has not been seen since July prior to the colonoscopy. He reports he stopped taking the lialda months ago and is not currently on any maintenance medication forhis IBD. Is just taking PRN uceris which he has not done in 2 months. At that time he was having 10-20 stools a day, urgency and hematochezia which he states is usually the pattern when he has a flare. Currently having 3-5 formed stools a day. Having urgency which is his most problematic symptoms. R eports this affects his daily activities and socializing. Denies any abdominal pain. Patient Active Problem List Diagnosis Date Noted ??? High risk medications (not anticoagulants) long-term use 04/22/2019 ??? Ulcerative colitis with complication ([facility]) 07/17/2018 Year of diagnosis: 2010 Year symptoms began: 2010 Distribution: Extensive (E3). Extraintestinal manifestations: none Complications: none Prior treatments: mesalamine, uceris Current treatment: start entyvio, uceris Prior surgeries: none Endoscopies: Colonoscopy 08/2018 The [...] polyps, biopsy Inflammatory pseudopolyps, no dysplasia Imaging: none ??? 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 Awareness under anesthesia ??? Ulcerative colitis (CMS/HCC) Past Surgical History: Procedure Laterality Date ??? COLONOSCOPY ??? SHOULDER SURGERY Left Family History Problem Relation Age of Onset ??? No Known Problems Mother ??? No Known Problems Father ??? Lung cancer Maternal Grandfather Social History Socioeconomic History ??? Marital status: Single Spouse name: Not on file ??? Number of children: Not on file ??? Years of education: Not on file ??? Highest education level: Not on file Occupational History ??? Not on file Social Needs ??? Financial resource strain: Not on file ??? Food insecurity: Worry: Not on file Inability: Not on file ??? Transportation needs: Medical: Not on file Non-medical: Not on file Tobacco Use ??? Smoking status: Never Smoker ??? Smokeless tobacco: Never Used Substance and Sexual Activity ??? Alcohol use: Not Currently ??? Drug use: Never ??? Sexual activity: Not on file Lifestyle ??? Physical activity: Days per week: Not on file Minutes per session: Not on file ??? Stress: Not on file Relationships ??? Social connections: Talks on phone: Not on file Gets together: Not on file Attends alevism service: Not on file Active member of club or organization: Not on file Attends meetings of clubs or organizations: Not on file Relationship status: Not on file ??? Intimate partner violence: Fear of current or ex partner: Not on file Emotionally abused: Not on file Physically abused: Not on file Forced sexual activity: Not on file Other Topics Concern ??? Not on file Social History Narrative ??? Not on file Allergies Allergen Reactions ??? Penicillins Rash Current Outpatient Medications Medication Sig Dispense Refill ? ? budesonide DR/ER (UCERIS) 9 mg tablet, delayed & ext.release Take 1 tablet (9 mg total) by mouth daily. 30 tablet 1 ??? dicyclomine (BENTYL) 10 mg capsule TK ONE C PO TID PRN 0 ??? prednisoLONE acetate (PRED FORTE) 1 % ophthalmic suspension 0 ??? tofacitinib (XELJANZ) 5 mg tablet Take 2 tablets (10 mg total) by mouth 2 (two) times a day. (Patient not taking: Reported on 04/22/2019) 360 tablet 3 No current facility-administered medications for this visit. The new patient intake form was reviewed with the patient on 04/22/2019. Review of Systems: Constitutional: Negative. HENT: Negative for sore throat and trouble swallowing. Eyes: Negative. Respiratory: Negative. Cardiovascular: Negative. Gastrointestinal: See HPI Endocrine: Negative. Genitourinary: Negative. Musculoskeletal: Negative. Skin: Negative. Allergic/Immunologic: Negative. Neurological: Negative. Hematological: Negative. Psychiatric/Behavioral: Negative. Breast: Negative. Vital Signs: BP 147/82 Pulse 64 Temp 36.9 ??C (98.5 ??F) Ht 180.3 cm (5' 11 ) Wt 98.7 kg (217 lb 9.6 oz) BMI 30.35 kg/m?? Physical Exam: GENERAL: Well-appearing, in no acute distress. HEENT: [...] with normal insight, memory, affect, and orientation Labs: No visits with results within 3 Month(s) from this visit. Latest known visit with results is: Orders Only on 07/24/2018 Component Date Value Ref Range Status ??? QuantiFERON(R)-TB Gold Plus, 1 Tube 08/21/2018 NEGATIVE NEGATIVE Final ??? NIL 08/21/2018 0.01 IU/mL Final ??? MITOGEN-NIL 08/21/2018 9.81 IU/mL Final ??? TB1-NIL 08/21/2018 0.00 IU/mL Final ??? TB2-NIL 08/21/2018 0.00 IU/mL Final ??? COPY(IES) SENT TO: 08/21/2018 Final Imaging Review none ASSESSMENT and PLAN: Ulcerative colitis with complication (CMS/HCC) Ulcerative colitis diagnosed in 2010. Previously maintained [...] for his IBD especially given endoscopic findings. Mesalaminewas not effective at controlling his IBD. Discussed [...] evaluation given the endoscopic pattern of inflammation High risk medications (not anticoagulants) long-term use High risk medications: As with all patients [...] review and are encouraged to contact us withany questions regarding new symptom development. No follow-ups on file. Cosigned by Kristie Cormier MD at 05/16/2019 11:15 AM PATIENT OFFICE REP ENT OFFICE REP ENT OFFICE REP Associated attestation - Kristie Cormier MD - 05/16/2019 11:15 AM PATIENT OFFICE REP I have seen and examined the patient. I agree with the findings and plan of care as documented in the nurse practitioner's note. documented in this encounter Miscellaneous Notes * Assessment & Plan Note - Senait De La Fuente NP - 04/22/2019 11:41 AM PATIENT OFFICE REP Associated Problem(s): High risk medications (not anticoagulants) long-term use High risk medications: As with all patients [...] review and are encouraged to contact us withany questions regarding new symptom development. ENT OFFICE REP * Assessment & Plan Note - Senait De La Fuente NP - 04/22/2019 11:34 AM PATIENT OFFICE REP Associated Problem(s): Ulcerative colitis with complication (HCC) Ulcerative colitis diagnosed in 2010. Previously maintained [...] for his IBD especially given endoscopic findings. Mesalaminewas not effective at controlling his IBD. Discussed [...] evaluation given the endoscopic pattern of inflammation ENT OFFICE REP documented in this encounter Plan of Treatment Not on file documented as of this encounter Results * MRI Enterography (abdomen) W WO Contrast (05/18/2019 10:00 AM PATIENT OFFICE REP) Anatomical Region Laterality Modality Body N/A Magnetic Resonan ce 05/20/2019 9:54 AM PATIENT OFFICE REP Impressions 05/20/2019 11:31 AM PATIENT OFFICE REP Active colitis from the distal descending colon to the rectum consistent with history of ulcerative colitis. ?? Remaining colon and small bowel are normal. Dictated by: Kevin Muñoz D.O. The radiology attending physician has personally reviewed this study, and had reviewed and/or edited this written report and agrees with it. Electronically signed by: Yasmin Castaneda M.D. Narrative 05/20/2019 11:31 AM PATIENT OFFICE REP EXAMINATION: MAGNETIC RESONANCE IMAGING OF THE ABDOMEN WITH AND WITHOUT CONTRAST HISTORY: Ulcerative colitis. Active disease on colonoscopy August 2018, intermittent compliance with Lialda. TECHNIQUE: Magnetic resonance imaging of the abdomen was performed prior to and following the uneventful administration of intravenous Gadolinium contrast. Oral Volumen and 1 mg of intravenous glucagon was administered prior to the examination. Protocol: MR Enterography Contrast: Dotarem 18 mL COMPARISON: No prior abdominal imaging is available for comparison. FINDINGS: Bowel: Mild wall thickening and enhancement from the distal descending colon to the rectum consistent with active ulcerative colitis. No pericolonic fluid collection or abscess. Remaining colon, including the hepatic flexure, is normal. Stomach and small bowel are normal. Jejunal and ileal fold patterns are normal. Terminal ileum is normal and is best visualized on series 100, images 14-16. Liver: Normal in size and contour. No steatosis or iron deposition. - Bile Ducts: No biliary ductal dilation. - Focal Liver Lesions: None. - Vasculature: Abdominal aorta is normal caliber. Classic arterial branch anatomy with patent branch vessels. Mesenteric, portal and hepatic veins are patent. Gallbladder: Normal. Pancreas: Normal. Spleen: Normal. Adrenals: Normal. Kidneys: Normal. Lymph Nodes: No lymphadenopathy in the abdomen or pelvis. Other Findings: No consolidation in the lung bases. Heart is normal size. No pleural or pericardial effusion. No free or focal fluid collection in the abdomen or pelvis. Normal bladder, prostate and seminal vesicles. No acute fracture or destructive marrow replacing process. Procedure Note Yasmin Castaneda MD - 05/20/2019 EXAMINATION: MAGNETIC RESONANCE IMAGING OF THE ABDOMEN WITH AND WITHOUT CONTRAST HISTORY: Ulcerative colitis. Active disease on colonoscopy August 2018, intermittent compliance with Lialda. TECHNIQUE: Magnetic resonance imaging of the abdomen was performed prior to and following the uneventful administration of intravenous Gadolinium contrast. Oral Volumen and 1 mg of intravenous glucagon was administered prior to the examination. Protocol: MR Enterography Contrast: Dotarem 18 mL COMPARISON: No prior abdominal imaging is available for comparison. FINDINGS: Bowel: Mild wall thickening and enhancement from the distal descending colon to the rectum consistent with active ulcerative colitis. No pericolonic fluid collection or abscess. Remaining colon, including the hepatic flexure, is normal. Stomach and small bowel are normal. Jejunal and ileal fold patterns are normal. Terminal ileum is normal and is best visualized on series 100, images 14-16. Liver: Normal in size and contour. No steatosis or iron deposition. - Bile Ducts: No biliary ductal dilation. - Focal Liver Lesions: None. - Vasculature: Abdominal aorta is normal caliber. Classic arterial branch anatomy with patent branch vessels. Mesenteric, portal and hepatic veins are patent. Gallbladder: Normal. Pancreas: Normal. Spleen: Normal. Adrenals: Normal. Kidneys: Normal. Lymph Nodes: No lymphadenopathy in the abdomen or pelvis. Other Findings: No consolidation in the lung bases. Heart is normal size. No pleural or pericardial effusion. No free or focal fluid collection in the abdomen or pelvis. Normal bladder, prostate and seminal vesicles. No acute fracture or destructive marrow replacing process. IMPRESSION: Active colitis from the distal descending colon to the rectum consistent with history of ulcerative colitis. Remaining colon and small bowel are normal. Dictated by: Kevin Muñoz D.O. The radiology attending physician has personally reviewed this study, and had reviewed and/or edited this written report and agrees with it. Electronically signed by: Yasmin Castaneda M.D. Kristie Cormier MD IMG MRI PROCEDURES Final Resu lt documented in this encounter Visit Diagnoses Diagnosis Ulcerative colitis with complication, unspecified location (HCC)- Primary High risk medications (not anticoagulants) long-term use Encounter for long-term (current) use of other medications Ulcerative colitis with complication, unspecified location (HCC) documented in this encounter Care Teams Watch Crystal Edge Grinder Relationship Specialty Start Date End Date Tracey Acosta PA PCP - General Physician Cw Operator 03/06/18 documented as of this encounter
--- OUTSIDE RECORDS SUMMARY | 2024-06-16 05:07 | XMS_ITS | Encounter Summary ---
Author Organization [facility] Address [address] [place] [address] Phone Care Team Providers Care Book Shelver Name Role Phone Tracey Acosta Primary Care Pr ovider Encounter Details Date Type Department Care Team (Late st Contact Info) Description 01/21/2021 Documentation [facility] Gastroenterology [address] [facility] Advanced Medicine 8th [place] [address] [place] [address] Monica Fry, RN Social History Tobacco Use Types Packs/Day Years Used Date Smoking Tobacco: Never Smokeless Tobacco: Never Alcohol Use Standard Drinks/Week Comments Not Currently 0 (1 standard drink = 0.6 oz pur e alcohol) Sex and Gender Information Value Date Recorded Sex Assigned at Not on file Legal Sex Male 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 Gender Identity Not on file Sexual Orientation Not on file documented as of this encounter Progress Notes * Monica Fry RN - 01/21/2021 8:48 AM CDT Regarding pt's 10mg xeljanz tablets: CaseId:[id number]; Status:Approved; Review Type:Prior Auth; Coverage Start Date:01/19/2021; Coverage End Date:01/19/2022; documented in this encounter Plan of Treatment Not on file documented as of this encounter Visit Diagnoses Not on filedocumented in this encounter Care Teams Book Shelver Relationship Specialty Start Date End Date Tracey Acosta PA PCP - General Physician Dye Operator 03/06/18 documented as of this encounter
--- OUTSIDE RECORDS SUMMARY | 2024-06-16 05:07 | XMS_ITS | Encounter Summary ---
Author Organization [facility] Address [address] [place] [address] Phone Care Team Providers Care Farm Consultant Name Role Phone Tracey Acosta Primary Care Pr ovider Encounter Details Date Type Department Care Team (Late st Contact Info) Description 09/09/2020 Orders Only [facility] Gastroenterology [address] [facility] Advanced Medicine 8th [place] [address] [place] [address] Kristie Cormier MD [address] [place] [address] Ulcerative colitis with complication, unspecified location (CMS/HCC) (Primary Dx) Social History Tobacco Use Types Packs/Day Years Used Date Smoking Tobacco: Never Smokeless Tobacco: Never Alcohol Use Standard Drinks/Week Comments Not Currently 0 (1 standard drink = 0.6 oz pur e alcohol) Sex and Gender Information Value Date Recorded Sex Assigned at Not on file 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
--- OUTSIDE RECORDS SUMMARY | 2024-06-16 05:07 | XMS_ITS | Encounter Summary ---
Author Organization [facility] Address [address] [place] [address] Phone Care Team Providers Care Asphalt Heater Operator Name Role Phone Tracey Acosta Primary Care Pr ovider Encounter Details Date Type Department Care Team (Late st Contact Info) Description 08/08/2019 Orders Only [facility] Gastroenterology [address] [facility] Advanced Medicine 8th [place] [address] [place] [id number] Kristie Cormier MD [address] [place], [place] [id number] Social History Tobacco Use Types Packs/Day Years Used Date Smoking Tobacco: Never Smokeless Tobacco: Never Alcohol Use Standard Drinks/Week Comments Not Currently 0 (1 standard drink = 0.6 oz pur e alcohol) Sex and Gender Information Value Date Recorded Sex Assigned at Not on file 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 07/17/2018 08/08/2019 dicyclomine (BENTYL) 10 mg capsule TK ONE C PO TID PRN 01/10/2018 08/08/2019 documented as of this encounter Care Teams Asphalt Heater Operator Relationship Specialty Start Date End Date Tracey Acosta PA PCP - General Physician Glove Examiner 03/06/18 documented as of this encounter
--- OUTSIDE RECORDS SUMMARY | 2024-06-16 05:07 | XMS_ITS | Encounter Summary ---
Author Organization [facility] Address [address] [place] [address] Phone Care Team Providers Care Payment Processor Name Role Phone Tracey Acosta Primary Care Pr ovider Encounter Details Date Type Department Care Team (Late st Contact Info) Description 04/26/2019 Telephone [facility] Gastroenterology [address] [place] [address] Medicine 8th [place] [address] [place] [address] Monica Fry RN Social History Tobacco Use Types Packs/Day Years Used Date Smoking Tobacco: Never Smokeless Tobacco: Never Alcohol Use Standard Drinks/Week Comments Not Currently 0 (1 standard drink = 0.6 oz pur e alcohol) Sex and Gender Information Value Date Recorded Sex Assigned at Not on file Legal Sex Male 7:03 AM SEPTIC TANK SERVICE TECHNICIAN Gender Identity Not on file Sexual Orientation Not on file documented as of this encounter Miscellaneous Notes * Telephone Encounter - Monica Fry RN - 04/26/2019 1:30 PM CST lvm informing pt that he was approved for [employer]. Provided infusion center and office numbers. IC TANK SERVICE TECHNICIAN documented in this encounter Plan of Treatment Not on file documented as of this encounter Visit Diagnoses Not on filedocumented in this encounter Care Teams Payment Processor Relationship Specialty Start Date End Date Tracey Acosta PA PCP - General Physician Plaster Form Maker 03/06/18 documented as of this encounter
--- OUTSIDE RECORDS SUMMARY | 2024-06-16 05:07 | XMS_ITS | Encounter Summary ---
Author Organization [facility] Address [address] [place] [address] Phone Care Team Providers Care Pickling Grader Name Role Phone Tracey Acosta Primary Care Pr ovider Reason for Visit * Episode Based Medications (Routine) - Closed Specialty Diagnoses / Procedures Referred By Contac t Referred To Contact Diagnoses Ulcerative colitis with complication, unspecified location (HCC) Procedures DE INJECTION, VEDOLIZUMAB Kristie Cormier MD [address] [place] [address] Phone: tel: fax: [facility] Infusion Therapy [address] [place] [address] 5th [place] [address] [place] [address] Phone: tel: fax: Referral ID Status Reason Start Date Expiration Date Visits Re quested Visits Authorized [id number] Closed 09/04/2020 09/04/2021 9 9 Encounter Details Date Type Department Care Team (Late st Contact Info) Description 09/22/2020 7:45 AM CDT Infusion [facility] Infusion Therapy [facility] 5th [place] [address] [place] [address] Ulcerative colitis with complication, unspecified location (CMS/HCC) (Primary Dx) Social History Tobacco Use Types Packs/Day Years Used Date Smoking Tobacco: Never Smokeless Tobacco: Never Alcohol Use Standard Drinks/Week Comments Not Currently 0 (1 standard drink = 0.6 oz pur e alcohol) Sex and Gender Information Value Date Recorded Sex Assigned at Not on file 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 VSS, IV placed in left a/c. Labs drawn prior to infusion. Premedications declined. Entyvio administered per protocol, patient tolerated infusion.Follow up in 2 weeks. Ambulatory at discharge, no concerns. documented in this encounter Plan of Treatment Not on file documented as of this encounter Procedures Procedure Name Priority Date/Time Associated Diagnosis Comments CBC WITH AUTO DIFFERENTIAL Routine 09/22/2020 7:59 AM CDT Ulcerative colitis with complication, unspecified location (CMS/HCC) COMPREHENSIVE METABOLIC PANEL Routine 09/22/2020 7:59 AM CDT Ulcerative colitis with complication, unspecified location (CMS/HCC) documented in this encounter Results * CRP (acute phase) (09/22/2020 10:55 AM CDT) CRP 4.6 <=10.0 mg/L [facility] Blood specimen (specimen) 09/22/2020 10:55 AM CDT 09/22/2020 11:10 AM CDT us Kristie Cormier MD LAB BLOOD ORDERABLES Final Re sult [facility] Department [place] [address] * Comprehensive metabolic panel (09/22/2020 7:59 AM CDT) Total Protein 7.3 6.1 - 8.4 g/dL [facility] Albumin 4.4 3.5 - 5.2 g/dL [facility] Calcium 9.1 8.6 - 10.3 mg/dL [facility] Comment:Repeated and Verifie d BUN 14 7 - 23 mg/dL [facility] Total Bilirubin 0.95 0.20 - 1.40 mg/dL [facility] Alk Phos, Total 67 35 - 129 IU/L [facility] AST (SGOT) 24 11 - 47 IU/L [facility] ALT (SGPT) 33 6 - 53 IU/L [facility] Creatinine 0.95 0.70 - 1.30 mg/dL [facility] Sodium 140 135 - 145 mmol/L [facility] Potassium 3.9 3.3 - 5.1 mmol/L [facility] Chloride 106 95 - 107 mmol/L [facility] CO2 Content 25 21 - 29 mmol/L [facility] Glucose 86 64 - 99 mg/dL [facility] Comment: NONFASTING GLUCOSE RANGE = 64-199 mg/dL FASTING GLUCOSE 64 - 99 = NORMAL FASTING GLUCOSE 100 - 125 = IMPAIRED FASTING GLUCOSE FASTING GLUCOSE >=126 = PROVISIONAL DIAGNOSIS OF DIABETES eGFR >90.0 >60.0 mL/min/1.7 3 m2 [facility] eGFR >90.0 >60.0 mL/min/1.7 3 m2 [facility] Blood specimen (specimen) (Blood, Venous) 09/22/2020 7:59 AM CDT 09/22/2020 8:45 AM CDT us Kristie Cormier MD LAB BLOOD ORDERABLES Final Re sult [facility] * CBC with auto differential (09/22/2020 7:59 AM CDT) White Blood Count 7.1 3.6 - 11.2 K/uL [facility] RBC 5.21 4.06 - 5.63 M/uL [facility] Hemoglobin 14.9 13.0 - 17.5 g/dL [facility] Hematocrit 44.1 40.7 - 50.3 % [facility] MCV 84.5 80.0 - 97.6 fL [facility] MCH 28.6 26.7 - 33.7 pg [facility] MCHC 33.8 32.7 - 35.5 g/dL [facility] RBC Dist Width 13.7 12.3 - 17.0 % [facility] Platelet Count 365 140 - 440 K/uL [facility] MPV 8.1 6.8 - 10.4 fL [facility] Neutrophils % 59.7 38.7 - 74.5 % [facility] Lymphocyte % 28.1 20.0 - 54.3 % [facility] Monocytes % 7.9 4.3 - 13.5 % [facility] Eosinophils % 3.5 0.0 - 6.0 % [facility] Basophil % 0.8 0.0 - 3.0 % [facility] Absolute Neutrophil 4.3 1.8 - 6.6 K/uL [facility] Absolute Lymphocyte 2.0 0.8 - 3.3 K/uL [facility] Absolute Monocyte 0.6 0.2 - 1.2 K/uL [facility] Absolute Eosinophil 0.3 0.0 - 0.5 K/uL [facility] Absolute Basophil 0.1 0.0 - 0.2 K/uL [facility] Nucleated RBC % 0.0 0.0 - 0.4 /100 WBC [facility] Blood specimen (specimen) 09/22/2020 7:59 AM CDT 09/22/2020 8:45 AM CDT Kristie Cormier MD LAB BLOOD ORDERABLES [...] mL/hr, Administer over 30 Minutes, Once, On Mon09/22/20 at 0900, For 1 dose, Week 0Indications:Ulcerative colitis with complication, unspecified location (HCC) New Bag 09/22/2020 8:15 AM CDT 300 mg 510 mL/hr documented in this encounter Orders Medications Ordered That Juan ht Not Have Been Administered Count Last Ordered Date First Ordered Date sodium chloride 0.9% flush 10 mL 1 09/23/19 21 vedolizumab (ENTYVIO) 300 mg in sodium chloride 0.9% 250 mL IVPB 1 09/22/2020 documented in this encounter Care Teams Pickling Grader Relationship Specialty Start Date End Date Tracey Acosta PA PCP - General Physician Compounding Pharmacy Technician 03/06/18 documented as of this encounter
--- OUTSIDE RECORDS SUMMARY | 2024-06-16 05:07 | XMS_ITS | Encounter Summary ---
Author Organization [facility] Address [address] [place] [address] Phone Care Team Providers Care Floor Scraper Name Role Phone Tracey Acosta Primary Care Pr ovider Reason for Visit * Episode Based Medications (Routine) - Closed Specialty Diagnoses / Procedures Referred By Contac t Referred To Contact Diagnoses Ulcerative colitis with complication, unspecified location (HCC) Procedures MA INJECTION, VEDOLIZUMAB Kristie Cormier MD [address] [place] [address] Phone: tel: fax: [facility] Infusion Therapy [address] [facility] 5th [place] [address] [place] [address] Phone: tel: fax: Referral ID Status Reason Start Date Expiration Date Visits Re quested Visits Authorized [id number] Closed 07/03/2019 07/03/2020 5 5 Encounter Details Date Type Department Care Team (Late st Contact Info) Description 10/21/2019 3:00 PM CDT Infusion [facility] Infusion Therapy [facility] 5th [place] [address] [place] [address] Ulcerative colitis with complication, unspecified location (CMS/HCC) (Primary Dx) Social History Tobacco Use Types Packs/Day Years Used Date Smoking Tobacco: Never Smokeless Tobacco: Never Alcohol Use Standard Drinks/Week Comments Not Currently 0 (1 standard drink = 0.6 oz pur e alcohol) Sex and Gender Information Value Date Recorded Sex Assigned at Not on file 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 Denied signs/sx of infection. Voiced no c/o. Pre medications declined. IV inserted LAC without problems. Labs drawn today. VSS. F/U appointment in 8 weeks scheduled. Ambulatory post from unit documented in this encounter Miscellaneous Notes * Addendum Note - Hal Diaz - 10/21/2019 3:00 PM CDTAddended by: HAL DIAZ on: 10/21/2019 04:54 PM Modules accepted: Orders documented in this encounter Plan of Treatment Not on file documented as of this encounter Results * CBC with auto differential (10/21/2019 3:10 PM CDT) WBC 7.0 3.8 - 9.9 K/cumm [facility] Hgb 15.0 13.0 - 17.5 g/dL [facility] Hct 45.0 38.9 - 50.3 % [facility] Plt 373 150 - 400 K/cumm [facility] MPV 9.9 9.1 - 12.3 fL [facility] RBC 5.30 4.30 - 5.80 M/cumm [facility] MCV 84.9 81.3 - 96.4 fL [facility] MCH 28.3 27.1 - 33.3 pg [facility] MCHC 33.3 32.3 - 35.7 g/dL [facility] RDW CV 13.2 11.1 - 14.9 % [facility] RDW SD 41.2 35.7 - 48.1 fL [facility] NRBC abs 0.00 0.00 - 0.01 K/cumm [facility] Blood specimen (specimen) 10/21/2019 3:10 PM CDT 10/21/2019 5:00 PM CDT Kristie Cormier MD LAB BLOOD ORDERABLES Final Re sult [facility] Department [place] [address] * (ABNORMAL) Comprehensive metabolic panel (10/21/2019 3:10 PM CDT) Sodium 140 135 - 145 mmol/L [facility] Potassium, pl 3.7 3.3 - 4.9 mmol/L [facility] Chloride 103 97 - 110 mmol/L [facility] CO2 27 22 - 32 mmol/L [facility] Anion gap 10 2 - 15 mmol/L [facility] BUN 14 8 - 25 mg/dL [facility] Creatinine 0.98 0.80 - 1.30 mg/dL [facility] Glucose 97 70 - 199 mg/dL [facility] Comment: Interpretive Data Fasting glucose >/= 126 [...] 2017. Calcium 9.8 8.5 - 10.3 mg/dL [facility] Bilirubin, total 1.3(H) 0.1 - 1.2 mg/dL [facility] Protein, pl 7.6 6.5 - 8.5 g/dL [facility] Albumin 4.6 3.5 - 5.0 g/dL [facility] Alk phos 50 40 - 130 Units/L [facility] ALT 79(H) 7 - 55 Units/L [facility] AST 101(H) 10 - 50 Units/L [facility] Blood specimen (specimen) (Blood, Venous) 10/21/2019 3:10 PM CDT 10/21/2019 5:00 PM CDT Kristie Cormier MD LAB BLOOD ORDERABLES Final Re sult [facility] Department [place] [address] * T-SPOT.TB (10/21/2019 3:10 PM CDT) T-SPOT.TB Negative Negative [facility] Comment: Limitations from the T-SPOT.TB Package Insert [...] with T-SPOT.TB test. T-Spot testing performed by [employer], [address] [place] [address]. [id number] A negative test result does not exclude [...] T-SPOT.TB Panel A Spot Count 0 CERNER [facility]J T-SPOT.TB Panel B Spot Count 0 [facility]J T-SPOT.TB Negative Control Passed [facility] T-SPOT.TB Positive Control [facility]ed [facility] Blood specimen (specimen) 10/21/2019 3:10 PM CDT 10/21/2019 5:08 PM CDT Kristie Cormier MD LAB MICROBIOLOGY - GENERAL OR DERABLES Final Result Performing Organization Address City/[facility]/ZIP Co de Phone Number [facility] Department [place] [address] * Iron profile w/ IBC (10/21/2019 3:10 PM CDT) Iron 131 50 - 150 mcg/dL [facility] TIBC 287 250 - 400 mcg/dL [facility] Transferrin saturation 46 20 - 50 % [facility] Blood specimen (specimen) 10/21/2019 3:10 PM CDT 10/21/2019 5:00 PM CDT Kristie Cormier MD LAB BLOOD ORDERABLES Final Re sult [facility] [place] [address] * Vitamin D 25 hydroxy (10/21/2019 3:10 PM CDT) [facility] Vitamin D 25-OH 31 30 - 80 ng/mL [facility] Blood specimen (specimen) 10/21/2019 3:10 PM CDT 10/21/2019 5:00 PM CDT Kristie Cormier MD LAB BLOOD ORDERABLES Final Re sult Performing Organization Address [facility] [place] [address] * Vitamin B12 (10/21/2019 3:10 PM CDT) [facility] Vitamin B12 514 230 - 1,250 pg/mL [facility] Blood specimen (specimen) 10/21/2019 3:10 PM CDT 10/21/2019 5:00 PM CDT Kristie Cormier MD LAB BLOOD ORDERABLES Final Re sult Performing Organization Address [facility] de Phone Number [facility] [place] [address] * (ABNORMAL) TPMT activity profile, RBC (10/21/2019 3:10 PM CDT) [facility] 6-METHYLMERCAPTOPURI NE 4.31 3.00 - 6.66 [facility] 6-Methylmercaptopuri ne Riboside 7.07 5.04 - 9.57 [facility] 6-METHYLTHIOGUANINE RIBOSIDE 6.01(H) 2.70 - 5.84 [facility] Interpretation,Comp See Footnote [facility] Comment: *Normal* In this whole blood sample, the profile of activity of thiopurine methyltransferase using three different substrates was essentially normal. ADDITIONAL INFORMATION Liquid Chromatography-Tandem Mass Spectrometry (LC-MS/MS) This test was developed and its performance characteristics determined by [facility] in a manner consistent with CLIA requirements. This test has not been cleared or approved by the U.S. Food and Drug Administration. Reviewed by See Footnote [facility] Comment: RESULT: Amaury Huntley M.D. Test Performed by: [address] [address] [employer] Operator: Jose Hatch M.D. Ph.D.; CLIA# [id number] Blood specimen (specimen) 10/21/2019 3:10 PM CDT 10/21/2019 5:33 PM CDT Kristie Cormier MD LAB BLOOD ORDERABLES Final Re sult Performing Organization Address [facility] de Phone Number [facility] [place] [address] * Hepatitis B surface antibody (immune status) (10/21/2019 3:10 PM CDT) HBsAb (immune status) Equivocal [facility] Comment: Interpretive Data Nonreactive: This result is [...] OR DERABLES Final Result Performing Organization Address [facility] Co de Phone Number [facility] [place] [place] [address] * Folate (10/21/2019 3:10 PM CDT) Folic acid 9.9 >=5.0 ng/mL [facility] Blood specimen (specimen) 10/21/2019 3:10 PM CDT 10/21/2019 5:00 PM CDT Kristie Cormier MD LAB BLOOD ORDERABLES Final Re sult [facility] Department [place] [address] documented in this encounter Visit Diagnoses Diagnosis Ulcerative colitis with complication, unspecified location (HCC)- Primary documented in this encounter Administered Medications Inactive Administered Medications - up to 3 most recent administrations Medication Order MAR Action Action Date Dose Rate Site vedolizumab (ENTYVIO) 300 mg in sodium chloride 0.9% 250 mL IVPB 300 mg, intravenous, at 510 mL/hr, Administer over 30 Minutes, Once, On 10/21/19 at 1615, For 1 doseIndications:Ulcerative colitis with complication, unspecified location (HCC) New Bag 10/21/2019 3:30 PM CDT 300 mg 510 mL/hr documented in this encounter Orders Medications Ordered That Juan ht Not Have Been Administered Count Last Ordered Date First Ordered Date vedolizumab (ENTYVIO) 300 mg in sodium chloride 0.9% 250 mL IVPB 1 10/21/2019 Lab Orders Without Results Count Last Ordered D ate First Ordered Date CBC WITH AUTO DIFFERENTIAL 1 10/21/2019 COMPREHENSIVE METABOLIC PANEL 1 10/21/2019 Nursing Count Last Ordered Date First Orde red Date DAILY WEIGHTS 1 10/21/2019 ONCBCN NO PREMEDS NEEDED 1 10/21/2019 ONCBCN NURSING COMMUNICATION [id number] 1 0 10/21/2019 VITAL SIGNS PRE-INFUSION 1 10/21/2019 documented in this encounter Care Teams Floor Scraper Relationship Specialty Start Date End Date Tracey Acosta PA PCP - General Physician Systems Design Engineer 03/06/18 documented as of this encounter
--- OUTSIDE RECORDS SUMMARY | 2024-06-16 05:07 | XMS_ITS | Encounter Summary ---
Author Organization [facility] Address [address] [place] [address] Phone Care Team Providers Care Technical Communication Teacher Name Role Phone Tracey Acosta Primary Care Pr ovider Encounter Details Date Type Department Care Team (Late st Contact Info) Description 02/22/2021 Orders Only [facility] Gastroenterology [address] [facility] 8th [place] [address] [place] [address] Kristie Cormier MD [address] [place] [address] Social History Tobacco Use Types Packs/Day Years Used Date Smoking Tobacco: Never Smokeless Tobacco: Never Alcohol Use Standard Drinks/Week Comments Not Currently 0 (1 standard drink = 0.6 oz pur e alcohol) Sex and Gender Information Value Date Recorded Sex Assigned at Not on file 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 Gender Identity Not on file Sexual Orientation Not on file documented as of this encounter Ordered Prescriptions Prescription Sig Dispense Quantity Refills Last Filled Start Date End Date tofacitinib (Xeljanz) 10 mg tablet Take 1 tablet (10 mg total) by mouth 2 (two) times a day 60 tablet 2 02/22/2021 01/02/2023 documented in this encounter Plan of Treatment Not on file documented as of this encounter Visit Diagnoses Not on filedocumented in this encounter Discontinued Medications Medication Sig Discontinue Reason Start Date End Da te vedolizumab (ENTYVIO) 300 mg recon soln Infuse into a venous catheter once 02/22/2021 tofacitinib (XELJANZ) 5 mg tablet Take 2 tablets (10 mg total) by mouth 2 (two) times a day. 07/18/2018 07/18/2019 documented as of this encounter Care Teams Technical Communication Teacher Relationship Specialty Start Date End Date Tracey Acosta PA PCP - General Physician Charge Gang Weigher 03/06/18 documented as of this encounter
--- OUTSIDE RECORDS SUMMARY | 2024-06-16 05:07 | XMS_ITS | Encounter Summary ---
Author Organization [facility] Address [address] [facility] [address] [place] [address] Phone Care Team Providers Care Pocket Operator Name Role Phone Tracey Acosta Primary Care Pr ovider Reason for Visit * Gastroenterology (Routine) - Closed Specialty Diagnoses / Procedures Referred By Tania carlton Referred To Contact Gastroenterology Diagnoses Ulcerative colitis, unspecified with unspecified complications Procedures RETURN Tracey Acosta PA Phone: tel: fax: Kristie Cormier MD [address] [place] [address] Phone: tel: fax: Referral ID Status Reason Start Date Expiration Date Visits Re quested Visits Authorized [id number] Closed 04/22/2019 03/12/2021 99 [phone] Encounter Details Date Type Department Care Team (Late st Contact Info) Description 10/01/2019 8:45 AM CDT Telemedicine [facility] Gastroenterology [address] [facility] 8th [place] [address] [place] [address] Kristie Cormier MD [address] [place] [address] High risk medications (not anticoagulants) long-term use (Primary Dx); Ulcerative colitis with complication, unspecified location (CMS/HCC) Social History Tobacco Use Types Packs/Day Years Used Date Smoking Tobacco: Never Smokeless Tobacco: Never Alcohol Use Standard Drinks/Week Comments Not Currently 0 (1 standard drink = 0.6 oz pur e alcohol) Sex and Gender Information Value Date Recorded Sex Assigned at Not on file 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 During the visit, I was located [place], [place] and the patient was located in [place], [place]. The session withme started at 847 and ended at 852. To be followed by a call from Dr. Cormeir. The patient has been informed that the visit may not be secure and acknowledged the information. I have explained the option of participating in a telephone or video visit during the [facility] [place] [address] emergency to the patient. After being given an opportunity to ask questions about and discuss this type of visit, the patient verbally consented to proceeding with the telephone / video visit. The patient understands that this service replaces an office visit and they may be billed and/or responsible for any applicable copayments. Referred here Primary Care Physician: SCOTT Sinclair Consult requested by: Tracey Acosta* Chief Complaint: Ulcerative colitis HPI Balbir Noriega, is a 24 y.o.male who presents for follow up with ulcerative colitis diagnosed in 2010. He had been on lialda. Noted to have continued inflammation colonoscopy in August 2018. Started Entyvio 05/2019. Currently on every 8 week infusions. Had some insurance issues and his last infusionwas 07/29. To schedule next infusion after final insurance approval. MRE 05/2019 did show active left sided inflammation Feeling good since starting the entvio. He was having urgency at his last office visit in April.Reports this has for the most part resolved and has more control over his bowel movements. Having 2stools daily on average. Denies any abdominal pain or hematochezia. Past Medical History: Diagnosis Date ??? Awareness under anesthesia ??? Ulcerative colitis (CMS/HCC) Past Surgical History: Procedure Laterality Date ??? COLONOSCOPY ??? SHOULDER SURGERY Left Patient Active Problem List Diagnosis Date Noted ??? High risk medications (not anticoagulants) long-term use 04/22/2019 ??? Ulcerative colitis with complication (CMS/HCC) 07/17/2018 Overview Note: Year of diagnosis: 2010 Year symptoms began: [...] active inflammation noted distal descending to rectum ??? 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 prednisoLONE acetate (PRED FORTE) 1 % ophthalmic suspension 0 No current facility-administered medications for this visit. Penicillins Family History Problem Relation Age of Onset ??? No Known Problems Mother ??? No Known Problems Father ??? Lung cancer Maternal Grandfather Social History Tobacco Use ??? Smoking status: Never Smoker ??? Smokeless tobacco: Never Used Substance Use Topics ??? Alcohol use: Not Currently ??? Drug use: Never ROS Constitutional: Negative. HENT: Negative for sore throat and trouble swallowing. Eyes: Negative. Respiratory: Negative. Cardiovascular: Negative. Gastrointestinal: See HPI Endocrine: Negative. Genitourinary: Negative. Musculoskeletal: Negative. Skin: Negative. Allergic/Immunologic: Negative. Neurological: Negative. Hematological: Negative. Psychiatric/Behavioral: Negative. Breast: Negative. All other systems negative. Vital Signs Deferred due to telemedicine visit. Physical Exam GENERAL: Well-appearing, in no acute distress. Results Results for orders placed or performed in visit on 07/29/19 CRP (acute phase) Result Value Ref Range C-RP 3.4 <=10.0 mg/L Assessment/Plan Ulcerative colitis Doing well after starting entyvio in May. On entyvio every 6 weeks. He reports that he is feeling better since starting entyvio. Having 2 stools daily on average. Urgency resolved. Denies any pain or hematochezia -continue entyvio every 8 weeks -continue monitoring safety labs -consider prevnar at next office visit -will check fecal calprotectin, if elevated consider checking vedo level -follow up in 3 months High Risk Medications High risk medications: As with all patients [...] us withany questions regarding new symptom development. Orders No orders of the defined types were placed in this encounter. Explained to patient that these recommendations are given taking into account given unique circumstances around evolving COVID-19 pandemic. We are taking into account considerations including patientcontacts, age, underlying medical diseases, travel history, and best estimate regarding acuity of this problem when determining the best time for patient to present live in our clinical setting. Cosigned by Kristie Cormier MD at 10/06/2019 11:48 PM CDT Associated attestation - Kristie Cormier MD - 10/06/2019 11:48 PM CDT I separately spoke to the patient for additional 2 minutes. I agree with the findings and plan of care as documented in the nurse practitioner's note. documented in this encounter Plan of Treatment Not on file documented as of this encounter Visit Diagnoses Diagnosis High risk medications (not anticoagulants) long-term use- Primary Encounter for long-term (current) use of other medications Ulcerative colitis with complication, unspecified location (HCC) documented in this encounter Care Teams Pocket Operator Relationship Specialty Start Date End Date Tracey Acosta PA PCP - General Physician Swine Nutritionist 03/06/18 documented as of this encounter
--- OUTSIDE RECORDS SUMMARY | 2024-06-16 05:07 | XMS_ITS | Encounter Summary ---
Author Organization [facility] Address [address] [place] [address] Care Team Providers Care Insurance Claims Supervisor Name Role Phone Tracey Acosta Primary Care Pr ovider Encounter Details Date Type Department Care Team (Late st Contact Info) Description 01/19/2021 Documentation Gastroententerology Kamini Scruggs BS Social History Tobacco Use Types Packs/Day Years Used Date Smoking Tobacco: Never Smokeless Tobacco: Never Alcohol Use Standard Drinks/Week Comments Not Currently 0 (1 standard drink = 0.6 oz pur e alcohol) Sex and Gender Information Value Date Recorded Sex Assigned at Not on file 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 documented in this encounter Plan of Treatment Not on file documented as of this encounter Visit Diagnoses Not on filedocumented in this encounter Care Teams Insurance Claims Supervisor Relationship Specialty Start Date End Date Tracey Acosta PA PCP - General Physician Extra Gang Supervisor 03/06/18 documented as of this encounter
--- OUTSIDE RECORDS SUMMARY | 2024-06-16 05:07 | XMS_ITS | Encounter Summary ---
Author Organization [facility] Address [address] [place] [address] Phone Care Team Providers Care Inspector Air Carrier Name Role Phone Tracey Acosta Primary Care Pr ovider Encounter Details Date Type Department Care Team (Late st Contact Info) Description 09/25/2019 Orders Only [facility] Gastroenterology [address] 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
--- OUTSIDE RECORDS SUMMARY | 2024-06-16 05:07 | XMS_ITS | Encounter Summary ---
Author Organization [facility] Address [address] [place] [address] Phone Care Team Providers Care Metal Stamper Name Role Phone Tracey Acosta Primary Care Pr ovider Encounter Details Date Type Department Care Team (Late st Contact Info) Description 07/30/2019 Orders Only [facility] Gastroenterology [address] 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
--- OUTSIDE RECORDS SUMMARY | 2024-06-16 05:07 | XMS_ITS | Encounter Summary ---
Author Organization [facility] Healthcare Address [address] [place] [address] Care Team Providers Care Manufacturing Associate Name Role Phone Tracey Acosta Primary Care Pr ovider Encounter Details Date Type Department Care Team (Late st Contact Info) Description 01/19/2021 10:15 AM CDT Lab [facility] ([facility]) [address] [place] [phone] Kristie Cormier MD [address] 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 Gender Identity Not on file Sexual Orientation Not on file documented as of this encounter Discharge Disposition Disposition Code Departure Means Destination Discharge to home or self care documented in this encounter Plan of Treatment Not on file documented as of this encounter Procedures Procedure Name Priority Date/Time Associated Diagnosis Comments T-SPOT.TB Routine 01/19/2021 10:10 AM CDT Ulcerative colitis with complication, unspecified location (HCC) EGFR Routine 01/19/2021 10:10 AM CDT Ulcerative colitis with complication, unspecified location (HCC) DIFFERENTIAL AUTO Routine 01/19/2021 10: 10 AM CDT Ulcerative colitis with complication, unspecified location (HCC) CBC WITH AUTO DIFFERENTIAL Routine 01/19/2021 10:10 AM CDT Ulcerative colitis with complication, unspecified location (HCC) CRP (ACUTE PHASE) Routine 01/19/2021 10: 10 AM CDT Ulcerative colitis with complication, unspecified location (HCC) LIPID PANEL Routine 01/19/2021 10:10 AM CDT Ulcerative colitis with complication, unspecified location (HCC) COMPREHENSIVE METABOLIC PANEL Routine 01/19/2021 10:10 AM CDT Ulcerative colitis with complication, unspecified location (HCC) documented in this encounter Results * eGFR (01/19/2021 10:10 AM CDT) eGFR >90 90 - 130 mL/min/1.7 3 m2 [facility] Comment: Interpretive Data Reference Interval Normal ?>/= 90 mL/min/1.73m2 Mildly decreased* ? 60 - 89 mL/min/1.73m2 Mildly to moderately decreased ?45 - 59 mL/min/1.73m2 Moderately to severely decreased ??30 - 44 mL/min/1.73m2 Severely decreased ?15 - 29 mL/min/1.73m2 Kidney Failure ?< 15 ??mL/min/1.73m2 *Relative to young adult level Estimated glomerular filtration rate is determined by the CKD-EPI equation recommended by the National Kidney Foundation (KDIGO 2012 Clinical Practice Guideline for the Evaluation and Management of Chronic Kidney Disease. Kidney Intnl Suppl Jun 2012;3:1). The CKD-EPI equation should not be used for patients with unstable renal function and has not been validated in children and those over 70. Current interpretive data was last reviewed 2020 Blood specimen (specimen) 01/19/2021 10:10 AM CDT 01/19/2021 10:11 AM CDT Kristie Cormier MD LAB BLOOD ORDERABLES Final Re sult [facility] Department [place] [address] * (ABNORMAL) Differential, auto (01/19/2021 10:10 AM CDT) Neutrophil abs 5.0 1.7 - 6.5 K/cumm [facility] Imm gran abs 0.0 0.0 - 0.1 K/cumm [facility] Lymphocyte abs 3.1 0.8 - 3.3 K/cumm [facility] Monocyte abs 0.8 0.2 - 0.8 K/cumm [facility] Eosinophil abs 0.6(H) 0.0 - 0.5 K/cumm [facility] Basophil abs 0.1 0.0 - 0.1 K/cumm [facility] Neutrophil pct 52.2 % [facility] Comment: Interpretive Data Percent cell count reference ranges are not reported, since discordance with absolute values may lead to misinterpretation of CBC data. Current Interpretive Data was last revised on 2017. Imm gran pct 0.4 % [facility] Comment: Interpretive Data Percent cell count reference ranges are not reported, since discordance with absolute values may lead to misinterpretation of CBC data. Current Interpretive Data was last revised on 2017. Lymphocyte pct 32.3 % [facility] Comment: Interpretive Data Percent cell count reference ranges are not reported, since discordance with absolute values may lead to misinterpretation of CBC data. Current Interpretive Data was last revised on 2017. Monocyte pct 8.0 % [facility] Comment: Interpretive Data Percent cell count reference ranges are not reported, since discordance with absolute values may lead to misinterpretation of CBC data. Current Interpretive Data was last revised on 2017. Eosinophil pct 6.3 % [facility] Comment: Interpretive Data Percent cell count reference ranges are not reported, since discordance with absolute values may lead to misinterpretation of CBC data. Current Interpretive Data was last revised on 2017. Basophil pct 0.8 % [facility] Comment: Interpretive Data Percent cell count reference ranges are not reported, since discordance with absolute values may lead to misinterpretation of CBC data. Current Interpretive Data was last revised on 2017. Blood specimen (specimen) 01/19/2021 10:10 AM CDT 01/19/2021 10:10 AM CDT Kristie Cormier MD LAB BLOOD ORDERABLES Final Re sult [facility] Department [place] [address] * CBC with auto differential (01/19/2021 10:10 AM CDT) WBC 9.7 3.8 - 9.9 K/cumm [facility] Hgb 16.0 13.0 - 17.5 g/dL [facility] Hct 47.6 38.9 - 50.3 % [facility] Plt 365 150 - 400 K/cumm [facility] MPV 9.5 9.1 - 12.3 fL [facility] RBC 5.70 4.30 - 5.80 M/cumm [facility] MCV 83.5 81.3 - 96.4 fL [facility] MCH 28.1 27.1 - 33.3 pg [facility] MCHC 33.6 32.3 - 35.7 g/dL [facility] RDW CV 13.0 11.1 - 14.9 % [facility] RDW SD 39.9 35.7 - 48.1 fL [facility] NRBC abs 0.00 0.00 - 0.01 K/cumm [facility] Blood specimen (specimen) 01/19/2021 10:10 AM CDT 01/19/2021 10:10 AM CDT us Kristie Cormier MD LAB BLOOD ORDERABLES Final Re sult [facility] Department [place] [address] * (ABNORMAL) Comprehensive metabolic panel (01/19/2021 10:10 AM CDT) Sodium 139 135 - 145 mmol/L [facility] Potassium, pl 4.3 3.3 - 4.9 mmol/L [facility] Chloride 102 97 - 110 mmol/L [facility] CO2 29 22 - 32 mmol/L [facility] Anion gap 8 2 - 15 mmol/L [facility] BUN 12 8 - 25 mg/dL [facility] Creatinine 0.97 0.80 - 1.30 mg/dL [facility] Glucose 82 70 - 199 mg/dL [facility] Comment: Interpretive Data Fasting glucose [...] interpretive data was last revised 2017. Calcium 10.0 8.5 - 10.3 mg/dL [facility] Bilirubin, total 1.3(H) 0.1 - 1.2 mg/dL [facility] Protein, pl 7.9 6.5 - 8.5 g/dL [facility] Albumin 4.6 3.5 - 5.0 g/dL [facility] Alk phos 76 40 - 130 Units/L [facility] ALT 45 7 - 55 Units/L [facility] AST 29 10 - 50 Units/L [facility] Blood specimen (specimen) 01/19/2021 10:10 AM CDT 01/19/2021 10:10 AM CDT Kristie Cormier MD LAB BLOOD ORDERABLES Final Re sult Performing Organization Address City/[facility] Co de Phone Number [facility] Department [place] [address] * CRP (acute phase) (01/19/2021 10:10 AM CDT) CRP 2.8 <=10.0 mg/L [facility] Blood specimen (specimen) 01/19/2021 10:10 AM CDT 01/19/2021 10:10 AM CDT Kristie Cormier MD LAB BLOOD ORDERABLES Final Re sult Performing Organization Address [facility] de Phone Number [facility] Department [place] [address] * (ABNORMAL) Lipid panel (01/19/2021 10:10 AM CDT) Cholesterol 209(H) 30 - 199 mg/dL [facility] Comment: Interpretive Data Ages < or = 19 years ??Acceptable: ? <170 mg/dL ??Borderline high: ??170-199 mg/dL ??High: ? >or= 200 mg/dL Ages > or = 20 years ??Desirable: ?<200 mg/dL ??Borderline high: ??200-239 mg/dL ??High: ? >or= 240 mg/dL Literature References: 1. Expert Panel on Integrated Guidelines for Cardiovascular Health and Risk Reduction in Children and Adolescents. Pediatrics 2011;128:S213 2. NCEP Expert Panel. Circulation 2004;110:227 Current Interpretive Data was last revised on 2018. Triglycerides 165(H) <=149 mg/dL [facility] Comment: Interpretive Data Ages < or = 9 years ??Acceptable: ? <75 mg/dL ??Borderline high: ??75-99 mg/dL ??High: ? >or= 100 mg/dL Ages 10 to 20 years ??Acceptable: ? <90 mg/dL ??Borderline high: ??90-129 mg/dL ??High: ? >or= 130 mg/dL Ages > or = 20 years ??Desirable: ?<150 mg/dL ??Borderline high: ??150-199 mg/dL ??High: ? 200-499 mg/dL ?Very high: ?? >or= 499 mg/dL Literature References: 1. Expert Panel on Integrated Guidelines for Cardiovascular Health and Risk Reduction in Children and Adolescents. Pediatrics 2011;128:S213 2. NCEP Expert Panel. Circulation 2004;110:227 Current Interpretive Data was last revised on 2018. HDL 44 >=40 mg/dL [facility] Comment: Interpretive Data Ages < or = 19 years ??Acceptable: ? >45 mg/dL ??Borderline low: ?? 40-45 mg/dL ??Low: ? <40 mg/dL Ages > or = 20 years ??Desirable: ?>or= 60 mg/dL ??Low: ? <40 mg/dL Literature References: 1. Expert Panel on Integrated Guidelines for Cardiovascular Health and Risk Reduction in Children and Adolescents. Pediatrics 2011;128:S213 2. NCEP Expert Panel. Circulation 2004;110:227 Current Interpretive Data was last revised on 2018. LDL, calculated 132(H) <=129 mg/dL [facility] Comment: Interpretive Data Ages < or = 19 years ??Acceptable: ? <110 mg/dL ??Borderline high: ??110-129 mg/dL ??High: ?>or= 130 mg/dL Ages > or = 20 years ??Optimal: ? <100 mg/dL ??Near optimal: ?100-129 mg/dL ??Borderline high: ?? 130-159 mg/dL ??High: ?>160 mg/dL Literature References: 1. Expert Panel on Integrated Guidelines for Cardiovascular Health and Risk Reduction in Children and Adolescents. Pediatrics 2011;128:S213 2. NCEP Expert Panel. Circulation 2004;110:227 Current Interpretive Data was last revised on 2018. Non-HDL Cholesterol 165 mg/dL [facility] Comment: Interpretive Data Ages < or = 19 years ??Acceptable: ?<120 mg/dL ??Borderline high: ??120-144 mg/dL ??High: ?>145 mg/dL Ages > or = 20 years ??When triglycerides are >200 mg/dL, Non-HDL cholesterol is a secondary target of ? therapy with treatment goals that are 30 mg/dL greater than the LDL cholesterol target. ? Literature References: 1. Expert Panel on Integrated Guidelines for Cardiovascular Health and Risk Reduction in Children and Adolescents. Pediatrics 2011;128:S213 2. NCEP Expert Panel. Circulation 2004;110:227 Current Interpretive Data was last revised on 2018. Chol/HDL ratio 5 [facility] Blood specimen (specimen) 01/19/2021 10:10 AM CDT 01/19/2021 10:10 AM CDT us Kristie Cormier MD LAB BLOOD ORDERABLES Final Re sult [facility] Department [place] [address] * T-SPOT.TB (01/19/2021 10:10 AM CDT) [facility] T-SPOT.TB Negative [facility] Comment: Normal Value: Negative A negative test result does not exclude [...] test. T-SPOT.TB Panel A Spot Count 0 [facility] T-SPOT.TB Panel B Spot Count 0 [facility] T-SPOT.TB Negative Control Passed [facility] T-SPOT.TB Positive Control Passed [facility] Comment: Test Performed at: [employer] [place], [place] ??[phone] ? RAUL CHARLES MD,PHD Blood specimen (specimen) 01/19/2021 10:10 AM CDT 01/19/2021 10:10 AM CDT us Kristie Cormier MD LAB MICROBIOLOGY - GENERAL OR DERABLES Final Result [facility] Department [place] [address] documented in this encounter Visit Diagnoses Diagnosis Ulcerative colitis with complication, unspecified location (HCC) documented in this encounter Care Teams Manufacturing Associate Relationship Specialty Start Date End Date Tracey Acosta PA PCP - General Physician Credit Front Office Developer 03/06/18 documented as of this encounter
--- OUTSIDE RECORDS SUMMARY | 2024-06-16 05:07 | XMS_ITS | Encounter Summary ---
Author Organization [facility] Address [address] [facility] [address] [place] [id number] Care Team Providers Care Inter Fold Roll Cutter Name Role Phone Tracey Acosta Primary Care Pr ovider Reason for Visit * Reason Comments Nasal Congestion Nasal congestion fat igue onset Monday Headache Encounter Details Date Type Department Care Team ([facility] Contact Info) Description 10/28/2021 12:45 PM CDT Office Visit [facility] Out[facility] [address] [phone] [place] [address] [place] [address] [address] [place] [address] Acute maxillary sinusitis, recurrence not specified (Primary Dx) Social History Tobacco Use Types Packs/Day Years Used Date Smoking Tobacco: Never Smokeless Tobacco: Never Alcohol Use Standard Drinks/Week Comments Not Currently 0 (1 standard drink = 0.6 oz pur e alcohol) Sex and Gender Information Value Date Recorded Sex Assigned at Not on file 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 Gender Identity Not on file Sexual Orientation Not on file documented as of this encounter Last Filed Vital Signs Vital Sign Reading Time Taken Comments Blood Pressure 111/71 10/28/2021 12:50 PM CDT Pulse 68 10/28/2021 12:50 PM CDT Temperature 37.1 ??C (98.8 ??F) 10/28/2021 12:50 PM C DT Respiratory Rate 16 10/28/2021 12:50 PM CDT Oxygen Saturation 96% 10/28/2021 12:50 PM CDT Inhaled Oxygen Concentration - - Weight 99.8 kg (220 lb) 10/28/2021 12:50 PM CDT Height 180.3 cm (5' 11 ) 10/28/2021 12:50 PM CDT Body Mass Index 30.68 10/28/2021 12:50 PM CDT documented in this encounter Patient Instructions * Patient Instructions* Hui Orellana MA - 10/28/2021 1:12 PM CDT Results for orders placed or performed in visit on 10/28/21 POC Influenza A/B, COVID-19 antigen Result Value Ref Range Inflenza A Ag, POC Negative Influenza B Ag, POC Negative COVID-19 Ag POC Presumptive Negative Presumptive Negative, Invalid * Attachments The following attachments cannot be sent through Care Everywhere. * Cold Symptoms (Tractor Sweeper Driver) (Guamanian) documented in this encounter Ordered Prescriptions Prescription Sig Dispense Quantity Refills Last Filled Start Date End Date doxycycline (VIBRAMYCIN) 100 mg capsuleIndications: Acute maxillary sinusitis, recurrence not specified Take 1 tablet/caps ule (100 mg total) by mouth 2 (two) times a day for 7 days 14 tablet/capsule 10/28/2021 11/04/2021 documented in this encounter Progress Notes * Kristopher Lyman NP - 10/28/2021 12:45 PM CDT Images from the original note were not included. Subjective/Objective Patient ID: Balbir Noriega is a 26 y.o. male. Chief Complaint Nasal Congestion (Nasal congestion fatigue onset Monday) and Headache Son just got over viral URI No hx of covid or flu in past 3 months Pt is vaccinated covid URI This is a new problem. Episode onset: 7 days ago. The problem has been gradually worsening. There has been no fever. Associated symptoms include congestion, headaches, rhinorrhea and a sore throat. Pertinent negatives include no abdominal pain, chest pain, coughing, diarrhea, ear pain, nausea, neckpain, rash, shortness of breath, sinus pain, sneezing, vomiting or wheezing. Treatments tried: Mucinex max. The treatment provided mild relief. Review of Systems Constitutional: Negative for appetite change, chills, diaphoresis, fatigue and fever. HENT: Positive for congestion, postnasal drip, rhinorrhea, sinus pressure and sore throat. Negativefor ear discharge, ear pain, sinus pain and sneezing. Respiratory: Negative for cough, chest tightness, shortness of breath and wheezing. Cardiovascular: Negative for chest pain. Gastrointestinal: Negative for abdominal pain, diarrhea, nausea and vomiting. Musculoskeletal: Negative for myalgias, neck pain and neck stiffness. Skin: Negative for rash. Neurological: Positive for headaches. Negative for dizziness. Hematological: Negative for adenopathy. Physical Exam Vitals and nursing note reviewed. Constitutional: General: He is awake. He is not in acute distress. Appearance: Normal appearance. HENT: Head: Normocephalic and atraumatic. Right Ear: Tympanic membrane and ear canal normal. Left Ear: Tympanic membrane and ear canal normal. Nose: Congestion present. No rhinorrhea. Right Turbinates: Swollen. Left Turbinates: Swollen. Right Sinus: Maxillary sinus tenderness present. No frontal sinus tenderness. Left Sinus: Maxillary sinus tenderness present. No frontal sinus tenderness. Mouth/Throat: Lips: [place]. Mouth: Mucous membranes are moist. Tongue: Tongue does not deviate from midline. Pharynx: Uvula midline. Posterior oropharyngeal erythema present. No pharyngeal swelling, oropharyngeal exudate or uvula swelling. Tonsils: No tonsillar exudate or tonsillar abscesses. Eyes: General: Lids are normal. Pupils: Pupils are equal, round, and reactive to light. Cardiovascular: Rate and Rhythm: Normal rate and regular rhythm. Pulses: Normal pulses. Heart sounds: Normal heart sounds. Pulmonary: Effort: Pulmonary effort is normal. No respiratory distress. Breath sounds: Normal breath sounds. No decreased breath sounds, wheezing, rhonchi or rales. Musculoskeletal: Cervical back: Full passive range of motion without pain, normal range of motion and neck supple. Lymphadenopathy: Cervical: No cervical adenopathy. Skin: General: Skin is warm and dry. Neurological: Mental Status: He is alert and oriented to person, place, and time. Gait: Gait normal. Psychiatric: Behavior: Behavior is cooperative. Vitals: 10/28/21 1250 BP: 111/71 BP Location: Right arm Patient Position: Sitting Pulse: 68 Resp: 16 Temp: 37.1 ??C (98.8 ??F) TempSrc: Oral SpO2: 96% Weight: 99.8 kg (220 lb) Height: 180.3 cm (5' 11 ) No exam data present Past Medical History: Diagnosis Date ??? Awareness under anesthesia ??? Ulcerative colitis (HCC) Current Outpatient Medications: ??? doxycycline (VIBRAMYCIN) 100 mg capsule, Take 1 tablet/capsule (100 mg total) by mouth 2 (two) times a day for 7 days, Disp: 14 tablet/capsule, Rfl: 0 ??? prednisoLONE acetate (PRED FORTE) 1 % ophthalmic suspension, , Disp: , Rfl: 0 ??? tofacitinib (Xeljanz) 10 mg tablet, Take 1 tablet (10 mg total) by mouth 2 (two) times a day, Disp: 60 tablet, Rfl: 2 Allergies Allergen Reactions ??? Penicillins Rash Social History Socioeconomic History ??? Marital status: Single Tobacco Use ??? Smoking status: Never Smoker ??? Smokeless tobacco: Never Used Substance and Sexual Activity ??? Alcohol use: Not Currently ??? Drug use: Never Past Surgical History: Procedure Laterality Date ??? COLONOSCOPY ??? SHOULDER SURGERY Left Assessment/Plan Diagnoses and all orders for this visit: Acute maxillary sinusitis, recurrence not specified (Primary) - POC Influenza A/B, COVID-19 antigen - doxycycline (VIBRAMYCIN) 100 mg capsule; Take 1 tablet/capsule (100 mg total) by mouth 2 (two) times a day for 7 days offered PCR covid testing, pt refused Recent Results (from the past 4 hour(s)) POC Influenza A/B, COVID-19 antigen Collection Time: 10/28/21 1:11 PM Result Value Ref Range Inflenza A Ag, POC Negative Influenza B Ag, POC Negative COVID-19 Ag POC Presumptive Negative Presumptive Negative, Invalid Patient Education: Sinus Infection -Take and finish your antibiotic prescription as directed. -You may try: ??? Nasal saline wash, either Neti Pot or Sinus Rinse DAILY or a saline nasal spray 3-4 times a day. ??? Guaifenesin expectorants (Maximum Strength Mucinex, Robitussin, store brand) to loosen secretions. ??? For cough you can use dextromethorphan (Delsym syrup, Robitussin cough capsules or store brand). Dextromethorphan is considered safe for and breast feeding women. ??? You may try decongestants such as Sudafed (purchase at pharmacy) or Sudafed PE for congestion relief. Decongestants can keep you awake at night. Do not use decongestants if you have high blood pressure or if you are . If you have high blood pressure you can take otc Coricidin per package directions -Increase fluid intake: drink 2 liters (2 quarts) of non-caffeinated, non- alcoholic beverages daily, drinking alcohol causes nasal and sinus membranes to swell -Steam inhalation and warm compress to face often help relieve pressure -Avoid allergens and excessively dry heat -Sleep with head of bed elevated to encourage drainage. -Use of a humidifier if environment is heated by dry forced - air system -Avoid smoking, second-hand smoke and air pollutants. -If you are not improving or worsening, or develop facial swelling, in the next 3-5 days you must RETURN to the clinic, go to your PCP, or Urgent Care/ER to be SEEN and reevaluated. No further prescriptions or refills will be given by phone without another evaluation. Disposition ??? Treatment plan including expectations, follow up, and return precautions discussed with patient/parent, verbalizes understanding. ??? Medication dosage, use, and potential adverse reactions discussed with patient/parent. ??? Advised to follow up with PCP if symptoms do not resolve as expected or sooner if condition worsens. ??? Signs/symptoms warranting ER evaluation reviewed. ??? Patient and/or guardian was given an opportunity to ask questions, questions answered. Kristopher Lyman NP documented in this encounter Plan of Treatment Not on file documented as of this encounter Procedures Procedure Name Priority Date/Time Associated Diagnosis Comments POC INFLUENZA A/B, COVID-19 ANTIGEN Routine 10/28/2021 1:11 PM CDT Acute maxillary sinusitis, recurrence not specified documented in this encounter Results * POC Influenza A/B, COVID-19 antigen (10/28/2021 1:11 PM CDT) Influenza A Ag, POC Negative [facility] Influenza B Ag, POC Negative [facility] COVID-19 Ag POC Presumptive Negative Presumptive Negative, Invalid [facility] Nasal 10/28/2021 1:11 PM CDT Kristopher Lyman SWITCHGEAR REPAIRER POINT OF CARE TEST ORDERABLES F inal Result [facility] [address] documented in this encounter Visit Diagnoses Diagnosis Acute maxillary sinusitis, recurrence not specified- Primary documented in this encounter Additional Health Concerns Infection Onset Date Last Indicated Resolved Time COVID: Suspected 10/28/2021 10/28/2021 10/28/2021 1:13 PM CDT documented as of this encounter Care Teams Inter Fold Roll Cutter Relationship Specialty Start Date End Date Tracey Acosta PA PCP - General Physician In School Suspension Aide 03/06/18 documented as of this encounter
--- OUTSIDE RECORDS SUMMARY | 2024-06-16 05:07 | XMS_ITS | Encounter Summary ---
Author Organization [facility] Address [address] [place] [address] Phone Care Team Providers Care Flying Teacher Name Role Phone Tracey Acosta Primary Care Pr ovider Encounter Details Date Type Department Care Team (Late st Contact Info) Description 09/20/[address] 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 To confirm apt./covid screen documented in this encounter Plan of Treatment Not on file documented as of this encounter Visit Diagnoses Not on filedocumented in this encounter Care Teams Flying Teacher Relationship Specialty Start Date End Date Tracey Acosta PA PCP - General Physician Portable Power Tool Repairer 03/06/18 documented as of this encounter
--- OUTSIDE RECORDS SUMMARY | 2024-06-16 05:07 | XMS_ITS | Encounter Summary ---
Author Organization [facility] Address [address] [place] [address] Phone Care Team Providers Care Credit Operations Specialist Name Role Phone Tracey Acosta Primary Care Pr ovider Encounter Details Date Type Department Care Team (Late st Contact Info) Description 02/07/2019 Telephone [facility] Gastroenterology [facility] 8th [place] [address] [place] [address] Monica Fry RN Social History Tobacco Use Types Packs/Day Years Used Date Smoking Tobacco: Never Smokeless Tobacco: Never Alcohol Use Standard Drinks/Week Comments Not Currently 0 (1 standard drink = 0.6 oz pur e alcohol) Sex and Gender Information Value Date Recorded Sex Assigned at Not on file Legal Sex Male 7:03 AM 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 Asked pt to call back to schedule rov. Cancelled mri. documented in this encounter Plan of Treatment Not on file documented as of this encounter Visit Diagnoses Not on filedocumented in this encounter Care Teams Credit Operations Specialist Relationship Specialty Start Date End Date Tracey Acosta PA PCP - General Physician Classification Counselor 03/06/18 documented as of this encounter
--- OUTSIDE RECORDS SUMMARY | 2024-06-16 05:07 | XMS_ITS | Encounter Summary ---
Author Organization [facility] Address [address] [place] [address] Phone Care Team Providers Care Machine Sole Leveler Name Role Phone Tracey Acosta Primary Care Pr ovider Encounter Details Date Type Department Care Team (Late st Contact Info) Description 02/24/2020 Orders Only [facility] Gastroenterology [address] [facility] Advanced Medicine 8th [place] [address] [place] [address] Orin Solano, [facility] Social History Tobacco Use Types Packs/Day Years Used Date Smoking Tobacco: Never Smokeless Tobacco: Never Alcohol Use Standard Drinks/Week Comments Not Currently 0 (1 standard drink = 0.6 oz pur e alcohol) Sex and Gender Information Value Date Recorded Sex Assigned at Not on file Legal Sex Male 7:03 AM FUSING FURNACE LOADER Gender Identity Not on file Sexual Orientation Not on file documented as of this encounter Plan of Treatment Not on file documented as of this encounter Visit Diagnoses Not on filedocumented in this encounter Historical Medications * This list may reflect changes made after this encounter. vedolizumab (ENTYVIO) 300 mg recon soln Infuse into a venous catheter once 02/22/2021 added in this encounter Care Teams Machine Sole Leveler Relationship Specialty Start Date End Date Tracey Acosta PA PCP - General Physician Oral And Maxillofacial Surgery Resident 03/06/18 documented as of this encounter
--- OUTSIDE RECORDS SUMMARY | 2024-06-16 05:07 | XMS_ITS | Encounter Summary ---
Author Organization [facility] Address [address] [place] [address] Phone Care Team Providers Care Nurse Gynecology Name Role Phone Tracey Acosta Primary Care Pr ovider Encounter Details Date Type Department Care Team (Late st Contact Info) Description 09/25/2019 Telephone [facility] Gastroenterology [facility] 8th [place] [address] [place] [address] Elsi Arreguin RMA Social History Tobacco Use Types Packs/Day Years Used Date Smoking Tobacco: Never Smokeless Tobacco: Never Alcohol Use Standard Drinks/Week Comments Not Currently 0 (1 standard drink = 0.6 oz pur e alcohol) Sex and Gender Information Value Date Recorded Sex Assigned at Not on file Legal Sex Male 7:03 AM ENGINEERING DOCUMENT CONTROL CLERK Gender Identity Not on file Sexual Orientation Not on file documented as of this encounter Miscellaneous Notes * Telephone Encounter - Elsi Arreguin BS - 09/25/2019 2:57 PM CDT I have explained the option of participating in a telephone or video visit during the COVID-19 public health emergency to the patient. After being given an opportunity to ask questions about and discuss this type of visit, the patient verbally consented to proceeding with the telephone/video visit on 10/01/19. The patient understands that this service replaces an office visit and they may be billed and/or responsible for any applicable copayments. documented in this encounter Plan of Treatment Not on file documented as of this encounter Visit Diagnoses Not on filedocumented in this encounter Care Teams Nurse Gynecology Relationship Specialty Start Date End Date Tracey Acosta PA PCP - General Physician Visual C Developer 03/06/18 documented as of this encounter
--- OUTSIDE RECORDS SUMMARY | 2024-06-16 05:07 | XMS_ITS | Encounter Summary ---
Author Organization [facility] Address [address] [place] [address] Care Team Providers Care Aerial Lineman Name Role Phone Tracey Acosta Primary Care Pr ovider Encounter Details Date Type Department Care Team (Late st Contact Info) Description 10/01/2019 Documentation Gastroententerology Michelle Kirby BS Social History Tobacco Use Types Packs/Day Years Used Date Smoking Tobacco: Never Smokeless Tobacco: Never Alcohol Use Standard Drinks/Week Comments Not Currently 0 (1 standard drink = 0.6 oz pur e alcohol) Sex and Gender Information Value Date Recorded Sex Assigned at Not on file 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 documented in this encounter Plan of Treatment Not on file documented as of this encounter Visit Diagnoses Not on filedocumented in this encounter Care Teams Aerial Lineman Relationship Specialty Start Date End Date Tracey Acosta PA PCP - General Physician Phys[facility] Surgeons 03/06/18 documented as of this encounter
--- OUTSIDE RECORDS SUMMARY | 2024-06-16 05:07 | XMS_ITS | Encounter Summary ---
Author Organization [facility] Address [address] [facility] [address] [place] [address] Phone Care Team Providers Care Wheat Shipper Name Role Phone Tracey Acosta Primary Care Pr ovider Reason for Visit * Gastroenterology (Routine) - Closed Specialty Diagnoses / Procedures Referred By Tania carlton Referred To Contact Gastroenterology Diagnoses Ulcerative colitis, unspecified with unspecified complications Procedures RETURN Tracey Acosta PA Phone: tel: fax: Kristie Cormier MD [address] [place] [address] Phone: tel: fax: Referral ID Status Reason Start Date Expiration Date Visits Re quested Visits Authorized [id number] Closed 04/22/2019 03/12/2021 99 99 Encounter Details Date Type Department Care Team (Late st Contact Info) Description 01/19/2021 8:45 AM CDT Office Visit [facility] Gastroenterology [address] [place] [address] [place] [address] Kristie Cormier MD [address] [place] [address] Ulcerative colitis with complication, unspecified location (HCC) (Primary Dx); High risk medications (not anticoagulants) long-term use Social History Tobacco Use Types Packs/Day Years Used Date Smoking Tobacco: Never Smokeless Tobacco: Never Alcohol Use Standard Drinks/Week Comments Not Currently 0 (1 standard drink = 0.6 oz pur e alcohol) Sex and Gender Information Value Date Recorded Sex Assigned at Not on file 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 Gender Identity Not on file Sexual Orientation Not on file documented as of this encounter Last Filed Vital Signs Vital Sign Reading Time Taken Comments Blood Pressure 125/78 01/19/2021 8:48 AM CDT Pulse 59 01/19/2021 8:48 AM CDT Temperature 36.9 ??C (98.5 ??F) 01/19/2021 8:48 AM CD T Respiratory Rate - - Oxygen Saturation - - Inhaled Oxygen Concentration - - Weight 104.8 kg (231 lb) 01/19/2021 8:48 AM CDT Height 180.3 cm (5' 11 ) 01/19/2021 8:48 AM CDT Body Mass Index 32.22 01/19/2021 8:48 AM CDT documented in this encounter Progress Notes * Brown Rees MD - 01/19/2021 8:45 AM CDT Reason for visit: follow up ulcerative colitis Problem List: Patient Active Problem List Diagnosis ??? Instability of shoulder joint ??? Superior glenoid labrum lesion of shoulder ??? Ulcerative colitis with complication (HCC) ??? High risk medications (not anticoagulants) long-term use HPI: Mr. Reagan is a 26-year-old male with a history of ulcerative colitis presenting today for follow-up. Patient was initially diagnosed with ulcerative colitis in 2010 and placed on Lialda and p.r.n. Uceris. Colonoscopy in August 2018 demonstrated inflammation in the hepatic flexure Rowland 3, with inflamation from anus to rectum october 2 score, pseudopolyps in rectosigmoid colon, with [...] was advised to make aclinic appointment prior. He currently reports being asymptomatic denying any fevers, chills, nausea, vomiting, abdominal pain, bloody or melenic bowel movements. He is having 1-2 well-formed bowel movements per day. He states that stress is a definite trigger of his ulcerative colitis, which he has been experiencing more of as him and his are expecting a baby in the next 2 weeks. Past Medical History: Diagnosis Date ??? Awareness under anesthesia ??? Ulcerative colitis (HCC) Family History Problem Relation Age of Onset ??? No Known Problems Mother ??? No Known Problems Father ??? Lung cancer Maternal Grandfather Social History Socioeconomic History ??? Marital status: Single Spouse name: Not on file ??? Number of children: Not on file ??? Years of education: Not on file ??? Highest education level: Not on file Occupational History ??? Not on file Tobacco Use ??? Smoking status: Never Smoker ??? Smokeless tobacco: Never Used Substance and Sexual Activity ??? Alcohol use: Not Currently ??? Drug use: Never ??? Sexual activity: Not on file Other Topics Concern ??? Not on file Social History Narrative ??? Not on file Social Determinants of Health Financial Resource Strain: ??? Difficulty of Paying Living Expenses: Food Insecurity: ??? Worried About Running Out of Food in the Last Year: ??? Ran Out of Food in the Last Year: Transportation Needs: ??? Lack of Transportation (Medical): ??? Lack of Transportation (Non-Medical): Physical Activity: ??? Days of Exercise per Week: ??? Minutes of Exercise per Session: Stress: ??? Feeling of Stress : Social Connections: ??? Frequency of Communication with Friends and Family: ??? Frequency of Social Gatherings with Friends and Family: ??? Attends Christian Services: ??? Active Member of Clubs or Organizations: ??? Attends Club or Organization Meetings: ??? Marital Status: Intimate Partner Violence: ??? Fear of Current or Ex-Partner: ??? Emotionally Abused: ??? Physically Abused: ??? Sexually Abused: Current Outpatient Medications Medication Sig Dispense Refill ??? vedolizumab (ENTYVIO) 300 mg recon soln Infuse into a venous catheter once ??? prednisoLONE acetate (PRED FORTE) 1 % ophthalmic suspension (Patient not taking: Reported on 01/19/2021) 0 No current facility-administered medications for this visit. The new patient intake form was reviewed with the patient on @DATE@. Review of Systems: As per HPI Physical Exam: BP 125/78 Pulse 59 Temp 36.9 ??C (98.5 ??F) Ht 180.3 cm (5' 11 ) Wt 104.8 kg (231 lb) BMI32.22 kg/m?? General: well appearing, in NAD HEENT: NC/AT, sclera anicteric, EOMI, mask in place CV: RRR, normal S1 S2 Resp: CTAB, unlabored breathing Abd: Soft, nontender, nondistended, active bowel sounds Neuro: A&Ox4. CN II-XII grossly intact. No gross focal deficits. Psych: Appropriate mood/affect. Visit Diagnoses: No diagnosis found. Assessment/Plan: In summary, Mr. Reagan is a 26-year-old male with a history of ulcerative colitis presenting today for follow-up. #Ulcerative colitis Initially diagnosed with ulcerative colitis in [...] but then lost to follow up again. Given that he tends to forget his infusion dates and the fact that he will likely have increased stressors in the upcoming future with his future baby, will plan on Xeljanz monotherapy at this time. We will obtain labs, lipid panel, etc. Patient encouraged to call clinic with questions/concerns. Cosigned by Kristie Cormier MD at 03/08/2021 10:36 PM CDT Associated attestation - Kristie Cormier MD - 03/08/2021 10:36 PM CDT I have seen and examined the patient. I agree with the findings and plan of care as documented in the resident/fellow's note. My total encounter time on 01/19/2021 was 40 minutes which was spent in the activities documented in the note. This includes time spent prior to the visit and after the visitin direct care of the patient. This time does not include time spent in any separately reportable services. documented in this encounter Plan of Treatment Not on file documented as of this encounter Results * T-SPOT.TB (01/19/2021 10:10 AM CDT) [facility]: Normal Value: Negative A negative test [...] test. T-SPOT.TB Panel A Spot Count 0 [facility] T-SPOT.TB Panel B Spot Count 0 [facility] T-SPOT.TB Negative Control Passed [facility] T-SPOT.TB Positive Control Passed [facility] Comment: Test Performed at: [facility], [employer] [place], [place] ??[address] ? RAUL CHARLES MD,PHD Blood specimen (specimen) 01/19/2021 10:10 AM CDT 01/19/2021 10:10 AM CDT Kristie Cormier MD LAB MICROBIOLOGY - GENERAL OR DERABLES Final Result [facility] Department [place] [address] * (ABNORMAL) Lipid panel (01/19/2021 10:10 AM CDT) Cholesterol 209(H) 30 - 199 mg/dL [facility] Comment: Interpretive Data Ages < or = [...] on 2018. Triglycerides 165(H) <=149 mg/dL [facility] Comment: Interpretive Data Ages < or = [...] revised on 2018. HDL 44 >=40 mg/dL [facility] Comment: Interpretive Data Ages < or = [...] on 2018. LDL, calculated 132(H) <=129 mg/dL [facility] Comment: Interpretive Data Ages < or = [...] revised on 2018. Non-HDL Cholesterol 165 mg/dL [facility] Comment: Interpretive Data Ages < or = [...] last revised on 2018. Chol/HDL ratio 5 [facility] Blood specimen (specimen) 01/19/2021 10:10 AM CDT 01/19/2021 10:10 AM CDT Kristie Cormier MD LAB BLOOD ORDERABLES Final Re sult Performing Organization Address City/[facility]/ZIP Co de Phone Number [facility] Department [place] [address] * CRP (acute phase) (01/19/2021 10:10 AM CDT) CRP 2.8 <=10.0 mg/L [facility] Blood specimen (specimen) 01/19/2021 10:10 AM CDT 01/19/2021 10:10 AM CDT Kristie Cormier MD LAB BLOOD ORDERABLES Final Re sult [facility] Department [place] [address] * (ABNORMAL) Comprehensive metabolic panel (01/19/2021 10:10 AM CDT) Sodium 139 135 - 145 mmol/L [facility] Potassium, pl 4.3 3.3 - 4.9 mmol/L [facility] Chloride 102 97 - 110 mmol/L [facility] CO2 29 22 - 32 mmol/L [facility] Anion gap 8 2 - 15 mmol/L [facility] BUN 12 8 - 25 mg/dL [facility] Creatinine 0.97 0.80 - 1.30 mg/dL [facility] Glucose 82 70 - 199 mg/dL [facility] Comment: Interpretive Data Fasting glucose >/= 126 [...] 2017. Calcium 10.0 8.5 - 10.3 mg/dL [facility] Bilirubin, total 1.3(H) 0.1 - 1.2 mg/dL [facility] Protein, pl 7.9 6.5 - 8.5 g/dL [facility] Albumin 4.6 3.5 - 5.0 g/dL [facility] Alk phos 76 40 - 130 Units/L [facility] ALT 45 7 - 55 Units/L [facility] AST 29 10 - 50 Units/L [facility] Blood specimen (specimen) 01/19/2021 10:10 AM CDT 01/19/2021 10:10 AM CDT us Kristie Cormier MD LAB BLOOD ORDERABLES Final Re sult [facility] Department [place] [address] * CBC with auto differential (01/19/2021 10:10 AM CDT) Pathologist [facility] WBC 9.7 3.8 - 9.9 K/cumm [facility] Hgb 16.0 13.0 - 17.5 g/dL [facility] Hct 47.6 38.9 - 50.3 % [facility] Plt 365 150 - 400 K/cumm [facility] MPV 9.5 9.1 - 12.3 fL [facility] RBC 5.70 4.30 - 5.80 M/cumm [facility] MCV 83.5 81.3 - 96.4 fL [facility] MCH 28.1 27.1 - 33.3 pg [facility] MCHC 33.6 32.3 - 35.7 g/dL [facility] RDW CV 13.0 11.1 - 14.9 % [facility] RDW SD 39.9 35.7 - 48.1 fL [facility] NRBC abs 0.00 0.00 - 0.01 K/cumm [facility] Blood specimen (specimen) 01/19/2021 10:10 AM CDT 01/19/2021 10:10 AM CDT us Kristie Cormier MD LAB BLOOD ORDERABLES Final Re sult [facility] Department [place] [address] documented in this encounter Visit Diagnoses Diagnosis Ulcerative colitis with complication, unspecified location (HCC)- Primary High risk medications (not anticoagulants) long-term use Encounter for long-term (current) use of other medications documented in this encounter Care Teams Wheat Shipper Relationship Specialty Start Date End Date Tracey Acosta PA PCP - General Physician Tape Fastener Machine Operator 03/06/18 documented as of this encounter
--- OUTSIDE RECORDS SUMMARY | 2024-06-16 05:07 | XMS_ITS | Encounter Summary ---
Author Organization [facility] Healthcare Address [address] [place] [address] Care Team Providers Care Real Estate Sales Associate Name Role Phone Tracey Acosta Primary Care Pr ovider Encounter Details Date Type Department Care Team (Late st Contact Info) Description 05/27/2020 12:45 PM PLASTIC WELDING MACHINE OPERATOR Lab [address] [address] Ulcerative colitis with complication, unspecified location (CMS/HCC) Social History Tobacco Use Types Packs/Day Years Used Date Smoking Tobacco: Never Smokeless Tobacco: Never Alcohol Use Standard Drinks/Week Comments Not Currently 0 (1 standard drink = 0.6 oz pur e alcohol) Sex and Gender Information Value Date Recorded Sex Assigned at Not on file Legal Sex Male 7:03 AM PLASTIC WELDING MACHINE OPERATOR Gender Identity Not on file Sexual Orientation Not on file documented as of this encounter Plan of Treatment Not on file documented as of this encounter Procedures Procedure Name Priority Date/Time Associated Diagnosis Comments DIFFERENTIAL AUTO Routine 05/27/2020 10: 15 AM PLASTIC WELDING MACHINE OPERATOR Ulcerative colitis with complication, unspecified location (CMS/HCC) CBC WITH AUTO DIFFERENTIAL Routine 05/27/2020 10:15 AM PLASTIC WELDING MACHINE OPERATOR Ulcerative colitis with complication, unspecified location (CMS/HCC) CRP (ACUTE PHASE) Routine 05/27/2020 10: 15 AM PLASTIC WELDING MACHINE OPERATOR Ulcerative colitis with complication, unspecified location (CMS/HCC) COMPREHENSIVE METABOLIC PANEL Routine 05/27/2020 10:15 AM PLASTIC WELDING MACHINE OPERATOR Ulcerative colitis with complication, unspecified location (CMS/HCC) documented in this encounter Results * Differential, auto (05/27/2020 10:15 AM PLASTIC WELDING MACHINE OPERATOR) Neutrophil abs 4.7 1.7 - 6.5 K/cumm [facility] Imm gran abs 0.1 0.0 - 0.1 K/cumm [facility] Lymphocyte abs 3.1 0.8 - 3.3 K/cumm [facility] Monocyte abs 0.8 0.2 - 0.8 K/cumm [facility] Eosinophil abs 0.5 0.0 - 0.5 K/cumm [facility] Basophil abs 0.1 0.0 - 0.1 K/cumm [facility] Neutrophil pct 51.1 % [facility] Comment: Interpretive Data Percent cell count reference ranges are not reported, since discordance with absolute values may lead to misinterpretation of CBC data. Current Interpretive Data was last revised on 2017. Imm gran pct 0.5 % [facility] Comment: Interpretive Data Percent cell count reference ranges are not reported, since discordance with absolute values may lead to misinterpretation of CBC data. Current Interpretive Data was last revised on 2017. Lymphocyte pct 33.8 % [facility] Comment: Interpretive Data Percent cell count reference ranges are not reported, since discordance with absolute values may lead to misinterpretation of CBC data. Current Interpretive Data was last revised on 2017. Monocyte pct 8.6 % [facility] Comment: Interpretive Data Percent cell count reference ranges are not reported, since discordance with absolute values may lead to misinterpretation of CBC data. Current Interpretive Data was last revised on 2017. Eosinophil pct 5.2 % [facility] Comment: Interpretive Data Percent cell count reference ranges are not reported, since discordance with absolute values may lead to misinterpretation of CBC data. Current Interpretive Data was last revised on 2017. Basophil pct 0.8 % [facility] Comment: Interpretive Data Percent cell count reference ranges are not reported, since discordance with absolute values may lead to misinterpretation of CBC data. Current Interpretive Data was last revised on 2017. Blood specimen (specimen) 05/27/2020 10:15 AM PLASTIC WELDING MACHINE OPERATOR 05/27/2020 1:32 PM PLASTIC WELDING MACHINE OPERATOR Kristie Cormier MD LAB BLOOD ORDERABLES Final Re sult Performing Organization Address City/[facility]/ZIP Co de Phone Number [facility] [place] [address] * CRP (acute phase) (05/27/2020 10:15 AM PLASTIC WELDING MACHINE OPERATOR) Pathologist [facility] CRP 6.8 <=10.0 mg/L [facility] Blood specimen (specimen) 05/27/2020 10:15 AM PLASTIC WELDING MACHINE OPERATOR 05/27/2020 1:32 PM PLASTIC WELDING MACHINE OPERATOR Kristie Cormier MD LAB BLOOD ORDERABLES Final Re sult Performing Organization Address [facility] de Phone Number [facility] [place] [address] * Comprehensive metabolic panel (05/27/2020 10:15 AM PLASTIC WELDING MACHINE OPERATOR) Pathologist [facility] Sodium 140 135 - 145 mmol/L [facility] Potassium, pl 4.0 3.3 - 4.9 mmol/L [facility] Chloride 104 97 - 110 mmol/L [facility] CO2 27 22 - 32 mmol/L [facility] Anion gap 9 2 - 15 mmol/L [facility] BUN 11 8 - 25 mg/dL [facility] Creatinine 0.97 0.80 - 1.30 mg/dL [facility] Glucose 73 70 - 199 mg/dL [facility] Comment: Interpretive Data Fasting glucose [...] 2017. Calcium 9.7 8.5 - 10.3 mg/dL [facility] Bilirubin, total 0.7 0.1 - 1.2 mg/dL [facility] Protein, pl 7.7 6.5 - 8.5 g/dL [facility] Albumin 4.4 3.5 - 5.0 g/dL [facility] Alk phos 51 40 - 130 Units/L [facility] ALT 44 7 - 55 Units/L [facility] AST 44 10 - 50 Units/L [facility] Blood specimen (specimen) (Blood, Venous) 05/27/2020 10:15 AM PLASTIC WELDING MACHINE OPERATOR 05/27/2020 1:32 PM PLASTIC WELDING MACHINE OPERATOR Kristie Cormier MD LAB BLOOD ORDERABLES Final Re sult [facility] [place] [address] * CBC with auto differential (05/27/2020 10:15 AM PLASTIC WELDING MACHINE OPERATOR) WBC 9.3 3.8 - 9.9 K/cumm [facility] Hgb 15.2 13.0 - 17.5 g/dL [facility] Hct 46.4 38.9 - 50.3 % [facility] Plt 383 150 - 400 K/cumm [facility] MPV 9.7 9.1 - 12.3 fL [facility] RBC 5.38 4.30 - 5.80 M/cumm [facility] MCV 86.2 81.3 - 96.4 fL [facility] MCH 28.3 27.1 - 33.3 pg [facility] MCHC 32.8 32.3 - 35.7 g/dL [facility] RDW CV 13.0 11.1 - 14.9 % [facility] RDW SD 40.5 35.7 - 48.1 fL [facility] NRBC abs 0.00 0.00 - 0.01 K/cumm [facility] Blood specimen (specimen) 05/27/2020 10:15 AM PLASTIC WELDING MACHINE OPERATOR 05/27/2020 1:32 PM PLASTIC WELDING MACHINE OPERATOR us Kristie Cormier MD LAB BLOOD ORDERABLES Final Re sult [facility] [place] [address] documented in this encounter Visit Diagnoses Diagnosis Ulcerative colitis with complication, unspecified location (HCC) documented in this encounter Care Teams Real Estate Sales Associate Relationship Specialty Start Date End Date Tracey Acosta PA PCP - General Physician Stamp Presser 03/06/18 documented as of this encounter
--- OUTSIDE RECORDS SUMMARY | 2024-06-16 05:07 | XMS_ITS | Encounter Summary ---
Author Organization [facility] Healthcare Address [address] [place] [address] Care Team Providers Care Treatment Manager Name Role Phone Tracey Acosta Primary Care Pr ovider Reason for Referral * Diagnostic Imaging (Routine) - Closed Specialty Diagnoses / Procedures Referred By Contac t Referred To Contact Radiology Diagnoses Ulcerative colitis with complication, unspecified location (HCC) Procedures MRI Enterography (abdomen) W WO Contrast Kristie Cormier MD [address] [address] Phone: tel: fax: [address] [phone] Referral ID Status Reason Start Date Expiration Date Visits Re quested Visits Authorized [id number] Closed 04/22/2019 10/31/2020 1 1 ESTATE TRANSACTION COORDINATOR Reason for Visit * Diagnostic Imaging (Routine) - Closed Specialty Diagnoses / Procedures Referred By Contac t Referred To Contact Radiology Diagnoses Ulcerative colitis with complication, unspecified location (HCC) Procedures MRI Enterography (abdomen) W WO Contrast Kristie Cormier MD [address] [address] Phone: tel: fax: [address] [phone] Referral ID Status Reason Start Date Expiration Date Visits Re quested Visits Authorized [id number] Closed 04/22/2019 10/31/2020 1 1 Encounter Details Date Type Department Care Team (Latest Contact Info) Description 05/18/2019 7:39 AM REAL ESTATE TRANSACTION COORDINATOR - 05/18/2019 11:59 PM REAL ESTATE TRANSACTION COORDINATOR Hospital Encounter [facility] [address] [place] [address] Kristie Cormier MD [address] [place] [address] Ulcerative colitis with complication, unspecified location (CMS/HCC) Discharge Disposition: Discharge to home or self care Social History Tobacco Use Types Packs/Day Years Used Date Smoking Tobacco: Never Smokeless Tobacco: Never Alcohol Use Standard Drinks/Week Comments Not Currently 0 (1 standard drink = 0.6 oz pur e alcohol) Sex and Gender Information Value Date Recorded Sex Assigned at Not on file Legal Sex Male 7:03 AM REAL ESTATE TRANSACTION COORDINATOR Gender Identity Not on file Sexual Orientation Not on file documented as of this encounter Medications at Time of Discharge budesonide DR/ER (UCERIS) 9 mg tablet, delayed & ext.releaseIndica tions:Ulcerative Colitis Take 1 tablet (9 mg total) by mouth daily. 30 tablet 1 07/17/2018 08/08/2019 dicyclomine (BENTYL) 10 mg capsule TK ONE C PO TID PRN 0 01/10/2018 08/08/2019 prednisoLONE acetate (PRED FORTE) 1 % ophthalmic suspension 0 02/07/2019 01/02/2023 tofacitinib (XELJANZ) 5 mg tablet Take 2 tablets (10 mg total) by mouth 2 (two) times a day. 360 tablet 3 07/18/2018 07/18/2019 documented as of this encounter Discharge Disposition Disposition Code Departure Means Destination Discharge to home or self care documented in this encounter Plan of Treatment Not on file documented as of this encounter Procedures Procedure Name Priority Date/Time Associated Diagnosis Comments MRI ABDOMENT ENTEROGRAPHY W WO CONTRAST Schedule Routine, Read Routine (OP Routine) 05/18/2019 10:00 AM REAL ESTATE TRANSACTION COORDINATOR Ulcerative colitis with complication, unspecified location (CMS/HCC) documented in this encounter Results * MRI Enterography (abdomen) W WO Contrast (05/18/2019 10:00 AM REAL ESTATE TRANSACTION COORDINATOR) Anatomical Region Laterality Modality Body N/A Magnetic Resonan ce 05/20/2019 9:54 AM REAL ESTATE TRANSACTION COORDINATOR Impressions 05/20/2019 11:31 AM REAL ESTATE TRANSACTION COORDINATOR Active colitis from the distal descending colon to the rectum consistent with history of ulcerative colitis. ?? Remaining colon and small bowel are normal. Dictated by: Kevin Muñoz D.O. The radiology attending physician has personally reviewed this study, and had reviewed and/or edited this written report and agrees with it. Electronically signed by: Yasmin Castaneda M.D. Narrative 05/20/2019 11:31 AM REAL ESTATE TRANSACTION COORDINATOR EXAMINATION: MAGNETIC RESONANCE IMAGING OF THE ABDOMEN [...] Electronically signed by: Yasmin Castaneda M.D. Kristie BOYD MRI PROCEDURES Final Resu lt documented in this encounter Visit Diagnoses Diagnosis Ulcerative colitis with complication, unspecified location (HCC) documented in this encounter Administered Medications Inactive Administered Medications - up to 3 most recent administrations Medication Order MAR Action Action Date Dose Rate Site gadoterate meglumine (DOTAREM) 0.5 mmol/mL injection 19.74 mL 19.74 mL (0.1 mmol/kg ? 98.7 kg), intravenous, Once in imaging, contrast, Starting on 12/7/19 at 0940, For 1 dose, Imaging Protocol Orders Given 05/18/2019 9:40 AM REAL ESTATE TRANSACTION COORDINATOR 18 mL glucagon injection 1 mg 1 mg, intravenous, Administer over 1 Minutes, Once in imaging, low blood sugar, Starting on 05/18/19 at 0759, For 1 dose, Imaging Protocol Orders Given 05/18/2019 9:09 AM REAL ESTATE TRANSACTION COORDINATOR 1 mg documented in this encounter Care Teams Treatment Manager Relationship Specialty Start Date End Date Tracey Acosta PA PCP - General Physician Railway Track Worker 03/06/18 documented as of this encounter
--- OUTSIDE RECORDS SUMMARY | 2024-06-16 05:07 | XMS_ITS | Encounter Summary ---
Author Organization [facility] Address [address] [place] [address] Phone Care Team Providers Care Plaster Tender Name Role Phone Tracey Acosta Primary Care Pr ovider Encounter Details Date Type Department Care Team (Late st Contact Info) Description 09/01/2020 Orders Only [facility] Gastroenterology [address] [facility] Advanced Medicine 8th [place] [address] [place] [address] Dawn Farfan LPN Social History Tobacco Use Types Packs/Day Years Used Date Smoking Tobacco: Never Smokeless Tobacco: Never Alcohol Use Standard Drinks/Week Comments Not Currently 0 (1 standard drink = 0.6 oz pur e alcohol) Sex and Gender Information Value Date Recorded Sex Assigned at Not on file Legal Sex Male 7:03 AM 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 Plan sent to precert. documented in this encounter Plan of Treatment Not on file documented as of this encounter Visit Diagnoses Not on filedocumented in this encounter Care Teams Plaster Tender Relationship Specialty Start Date End Date Tracey Acosta PA PCP - General Physician Custodial Worker 03/06/18 documented as of this encounter
--- OUTSIDE RECORDS SUMMARY | 2024-06-16 05:07 | XMS_ITS | Encounter Summary ---
Author Organization [facility] Healthcare Address [address] [place] [address] Care Team Providers Care Benefits Clerk Name Role Phone Tracey Acosta Primary Care Pr ovider Encounter Details Date Type Department Care Team (Latest Contact Info) Description 03/22/2022 3:10 PM CDT - 03/22/2022 11:59 PM CDT Hospital Encounter [address] [address] Acute tonsillitis, unspecified etiology Discharge Disposition: Discharge to home or self care Social History Tobacco Use Types Packs/Day Years Used Date Smoking Tobacco: Never Smokeless Tobacco: Never Alcohol Use Standard Drinks/Week Comments Not Currently 0 (1 standard drink = 0.6 oz pur e alcohol) Sex and Gender Information Value Date Recorded Sex Assigned at Not on file Legal Sex Male 7:03 AM COMPOSING MACHINE OPERATOR/TENDER Gender Identity Not on file Sexual Orientation Not on file documented as of this encounter Medications at Time of Discharge azithromycin (ZITHROMAX) 250 mg tablet Take 2 tabs (500 mg) by mouth today, than 1 tab (250 mg) daily for 4 days. 6 tablet 03/22/2022 03/27/2022 prednisoLONE acetate (PRED FORTE) 1 % ophthalmic suspension 0 02/07/2019 01/02/2023 tofacitinib (Xeljanz) 10 mg tablet Take 1 tablet (10 mg total) by mouth 2 (two) times a day 60 tablet 2 02/22/2021 01/02/2023 documented as of this encounter Discharge Disposition Disposition Code Departure Means Destination Discharge to home or self care documented in this encounter Miscellaneous Notes * Result Encounter Note - Rebecca De Leon NP - 03/22/2022 11:59 PM CDT Please notify patient of positive strep culture. Antibiotics were given during visit, please continue to take them as prescribed. Patient should discard toothbrush and get a new one 48 hours after initiating antibiotics and refrain from sharing utensils, cups, or straws and close facial contact until completion of antibiotics. F/U with PCP if symptoms do not improve. * Result Encounter Note - Liz Corral MA - 03/22/2022 11:59 PM CDT Message sent. documented in this encounter Plan of Treatment Not on file documented as of this encounter Procedures Procedure Name Priority Date/Time Associated Diagnosis Comments THROAT CULTURE Routine 03/22/2022 3:10 PM CDT Acute tonsillitis, unspecified etiology documented in this encounter Results * (ABNORMAL) Throat culture Throat (03/22/2022 3:10 PM CDT) Report Final Report: Streptococcus dysgalactiae Routine susceptibility testing not performed. (.) [facility] Comment:Testing performed by : [facility], [address] [place]., [address] Organism STREPTOCOCCUS DYSGALACTIAE [facility] Throat 03/22/2022 3:10 PM CDT 03/22/2022 10:46 PM CDT Narrative [facility] - 03/23/2022 11:16 PM CDT Testing performed by [facility] Microbiology Laboratory ([phone]). us [facility] MICROBIOLOGY - GENER AL ORDERABLES Final Result [facility] [id number] Department [place] [address] documented in this encounter Visit Diagnoses Diagnosis Acute tonsillitis, unspecified etiology documented in this encounter Care Teams Benefits Clerk Relationship Specialty Start Date End Date Tracey Acosta PA PCP - General Physician Egg Caser 03/06/18 documented as of this encounter
--- OUTSIDE RECORDS SUMMARY | 2024-06-16 05:07 | XMS_ITS | Encounter Summary ---
Author Organization [facility] Address [address] [place] [address] Phone Care Team Providers Care Vice President Payer Name Role Phone Tracey Acosta Primary Care Pr ovider Reason for Visit * Episode Based Medications (Routine) - Closed Specialty Diagnoses / Procedures Referred By Contac t Referred To Contact Diagnoses Ulcerative colitis with complication, unspecified location (HCC) Procedures AL INJECTION, VEDOLIZUMAB Kristie Cormier MD [address] [place] [address] Phone: tel: fax: [facility] Infusion Therapy [facility] Medicine 5th [place] [address] [place] [address] Phone: tel: fax: Referral ID Status Reason Start Date Expiration Date Visits Re quested Visits Authorized [id number] Closed 07/03/2019 07/03/2020 5 5 Encounter Details Date Type Department Care Team (Late st Contact Info) Description 05/22/2019 2:00 PM LOAD DISPATCHER Infusion [facility] Infusion Therapy [facility] Advanced Medicine 5th [place] [address] [place] [address] Ulcerative colitis with complication, unspecified location (CMS/HCC) (Primary Dx) Social History Tobacco Use Types Packs/Day Years Used Date Smoking Tobacco: Never Smokeless Tobacco: Never Alcohol Use Standard Drinks/Week Comments Not Currently 0 (1 standard drink = 0.6 oz pur e alcohol) Sex and Gender Information Value Date Recorded Sex Assigned at Not on file Legal Sex Male 7:03 AM LOAD DISPATCHER Gender Identity Not on file Sexual Orientation Not on file documented as of this encounter Last Filed Vital Signs Vital Sign Reading Time Taken Comments Blood Pressure 144/68 05/22/2019 1:50 PM LOAD DISPATCHER Pulse 80 05/22/2019 1:50 PM LOAD DISPATCHER Temperature 36.7 ??C (98.1 ??F) 05/22/2019 1:50 PM CS T Respiratory Rate 16 05/22/2019 1:50 PM LOAD DISPATCHER Oxygen Saturation - - Inhaled Oxygen Concentration - - Weight - - Height - - Body Mass Index - - documented in this encounter Progress Notes * Fermín Lyons RN - 05/22/2019 2:00 PM CST [facility] 300 mg infusion in 250ml NS over 30 minutes (500 ml/hr) for first time dose. Denied signs/sx of infection. Voiced no c/o. Pre medications not ordered. IV inserted RAC without problems. Labs drawn:CBC, CRP, CMP. Monitored for 30 minutes post-infusion. VSS. F/U appointment2:3 Loading dose in 2 weeks scheduled. Ambulatory post from unit DISPATCHER documented in this encounter Plan of Treatment Not on file documented as of this encounter Procedures Procedure Name Priority Date/Time Associated Diagnosis Comments CBC WITH AUTO DIFFERENTIAL Routine 05/22/2019 2:00 PM LOAD DISPATCHER Ulcerative colitis with complication, unspecified location (CMS/HCC) CRP, HIGH SENSITIVITY Routine 05/22/2019 2:00 PM LOAD DISPATCHER Ulcerative colitis with complication, unspecified location (CMS/HCC) COMPREHENSIVE METABOLIC PANEL Routine 05/22/2019 2:00 PM LOAD DISPATCHER Ulcerative colitis with complication, unspecified location (CMS/HCC) documented in this encounter Results * CBC with auto differential (05/22/2019 2:00 PM LOAD DISPATCHER) White Blood Count 8.3 3.6 - 11.2 K/uL [facility] RBC 5.48 4.06 - 5.63 M/uL [facility] Hemoglobin 15.7 13.0 - 17.5 g/dL [facility] Hematocrit 46.9 40.7 - 50.3 % [facility] MCV 85.5 80.0 - 97.6 fL [facility] MCH 28.7 26.7 - 33.7 pg [facility] MCHC 33.6 32.7 - 35.5 g/dL [facility] RBC Dist Width 13.6 12.3 - 17.0 % [facility] Platelet Count 397 140 - 440 K/uL [facility] MPV 8.5 6.8 - 10.4 fL [facility] Neutrophils % 48.9 38.7 - 74.5 % [facility] Lymphocyte % 37.0 20.0 - 54.3 % [facility] Monocytes % 8.9 4.3 - 13.5 % [facility] Eosinophils % 3.9 0.0 - 6.0 % [facility] Basophil % 1.3 0.0 - 3.0 % [facility] Absolute Neutrophil 4.1 1.8 - 6.6 K/uL [facility] Absolute Lymphocyte 3.1 0.8 - 3.3 K/uL [facility] Absolute Monocyte 0.7 0.2 - 1.2 K/uL [facility] Absolute Eosinophil 0.3 0.0 - 0.5 K/uL [facility] Absolute Basophil 0.1 0.0 - 0.2 K/uL [facility] Nucleated RBC % 0.4 0.0 - 0.4 /100 WBC [facility] Blood specimen (specimen) 05/22/2019 2:00 PM LOAD DISPATCHER 05/22/2019 4:08 PM LOAD DISPATCHER us Kristie Cormier MD LAB BLOOD ORDERABLES Final Re sult [facility] * Comprehensive metabolic panel (05/22/2019 2:00 PM LOAD DISPATCHER) Total Protein 7.9 6.1 - 8.4 g/dL [facility] Albumin 4.6 3.5 - 5.2 g/dL [facility] Calcium 10.2 8.6 - 10.3 mg/dL [facility] BUN 17 7 - 23 mg/dL [facility] Total Bilirubin 0.88 0.20 - 1.40 mg/dL [facility] Alk Phos, Total 62 35 - 129 IU/L [facility] AST (SGOT) 23 11 - 47 IU/L [facility] ALT (SGPT) 37 6 - 53 IU/L [facility] Creatinine 1.00 0.70 - 1.30 mg/dL [facility] Sodium 140 135 - 145 mmol/L [facility] Potassium 3.6 3.3 - 5.1 mmol/L [facility] Chloride 99 95 - 107 mmol/L [facility] CO2 Content 25 21 - 29 mmol/L [facility] Glucose 89 64 - 99 mg/dL [facility] Comment: NONFASTING GLUCOSE RANGE = 64-199 mg/dL FASTING GLUCOSE 64 - 99 = NORMAL FASTING GLUCOSE 100 - 125 = IMPAIRED FASTING GLUCOSE FASTING GLUCOSE >=126 = PROVISIONAL DIAGNOSIS OF DIABETES eGFR NON-AFR. SYRIAN >90.0 >60.0 mL/min/1.7 3 m2 [facility] eGFR >90.0 >60.0 mL/min/1.7 3 m2 [facility] Blood specimen (specimen) (Blood, Venous) 05/22/2019 2:00 PM LOAD DISPATCHER 05/22/2019 4:08 PM LOAD DISPATCHER us Kristie Cormier MD LAB BLOOD ORDERABLES Final Re sult [facility] * CRP, high sensitivity (05/22/2019 2:00 PM LOAD DISPATCHER) CRP, High Sensitivity 2.77 0.00 - 3.00 mg/L [facility] Comment: hsCRP Cardiovascular Risk Assessment Less than 1.0 mg/L = Low Risk 1.0 - 3.0 mg/L ? = Average Risk More than 3.0 mg/L = High Risk Blood specimen (specimen) 05/22/2019 2:00 PM LOAD DISPATCHER 05/22/2019 4:08 PM LOAD DISPATCHER Kristie Cormier MD LAB BLOOD ORDERABLES Final Re sult [facility] documented in [...] mL/hr, Administer over 30 Minutes, Once, On Mon05/22/19 at 1500, For 1 doseIndications:Ulcerative colitis with complication, unspecified location (HCC) New Bag 05/22/2019 2:10 PM LOAD DISPATCHER 300 mg 510 mL/hr documented in this encounter Orders Medications Ordered That Juan ht Not Have Been Administered Count Last Ordered Date First Ordered Date vedolizumab (ENTYVIO) 300 mg in sodium chloride 0.9% 250 mL IVPB 1 05/22/2019 Nursing Count Last Ordered Date First Orde red Date DAILY WEIGHTS 1 05/22/2019 ONCBCN NO PREMEDS NEEDED 1 05/22/2019 ONCBCN NURSING COMMUNICATION [id number] 1 1 07/23/2018 ONCBCN PROVIDER COMMUNICATION 1 1 9 VITAL SIGNS PRE-INFUSION 1 05/22/2019 documented in this encounter Care Teams Vice President Payer Relationship Specialty Start Date End Date Tracey Acosta PA PCP - General Physician Curve Saw Operator 03/06/18 documented as of this encounter
--- OUTSIDE RECORDS SUMMARY | 2024-06-16 05:07 | XMS_ITS | Encounter Summary ---
Author Organization [facility] Address [address] [place] [address] Phone Care Team Providers Care Blacktop Spreader Name Role Phone Tracey Acosta Primary Care Pr ovider Encounter Details Date Type Department Care Team (Late st Contact Info) Description 04/22/2019 Orders Only [facility] Gastroenterology [address] [facility] Advanced Medicine 8th [place] [address] [place] [address] Kaley Hernandez, FLAVIO Social History Tobacco Use Types Packs/Day Years Used Date Smoking Tobacco: Never Smokeless Tobacco: Never Alcohol Use Standard Drinks/Week Comments Not Currently 0 (1 standard drink = 0.6 oz pur e alcohol) Sex and Gender Information Value Date Recorded Sex Assigned at Not on file Legal Sex Male 7:03 AM S IRON WORKER Gender Identity Not on file Sexual Orientation Not on file documented as of this encounter Plan of Treatment Not on file documented as of this encounter Visit Diagnoses Not on filedocumented in this encounter Historical Medications * This list may reflect changes made after this encounter. Medication Sig Dispense Quantity Refills Last Filled Start D ate End Date prednisoLONE acetate (PRED FORTE) 1 % ophthalmic suspension 0 02/07/2019 added in this encounter Care Teams Blacktop Spreader Relationship Specialty Start Date End Date Tracey Acosta PA PCP - General Physician Beater Room Supervisor 03/06/18 documented as of this encounter
--- OUTSIDE RECORDS SUMMARY | 2024-06-16 05:08 | XMS_ITS | Encounter Summary ---
Author Organization [facility] Address [address] [place] [address] Care Team Providers Care Bricklayer Tender Name Role Phone Tracey Acosta Primary Care Pr ovider Encounter Details Date Type Department Care Team (Late st Contact Info) Description 09/07/2018 2:50 PM CDT Anesthesia Event [facility] [place] [address] [facility] [address] [place] [address] Peyton Garcia MD [address] [facility] [address] [place] [address] Ptati Hess MLT Anesthesia Record Procedure Summary Procedure Name Responsible Anesthesiologist Anesthesia Start Time Anesthesia Stop Time COLON BIOPSY (Colon) Peyton Garcia MD 09/07/18 1450 09/07/18 1607 Events Date Time Event Comment 09/07/2018 1428 1450 In Room 1450 An Start 1452 An Start Data 1456 Start Supplemental O2 1456 An Data Art 1456 Patient Positioned Laterally 1456 An Induction The patient was reevaluated immediately before moderate or deep sedation use and before anesthesia induction. 1456 Anesthesia Ready 1502 Proc Start 1559 Proc Fin 1601 an stop data 1602 Out of Room 1607 An Stop 1608 Handoff to RN I completed my handoff to the receiving nurse during which we: 1. Patient identified 2. Responsible provider identified 3. Pertinent medical history reviewed 4. Procedure type and surgical course discussed 5. Intraoperative anesthetic management and any significant issues discussed 6. Expectations and concerns for postop period discussed 7. Questions solicited from receiving nurse 8. Patient disposition at the time of handoff: phase II Meds Name Total midazolam PF 2 mg propofol 100 mg propofol 1,161.13 mg sodium chloride 0.9% infusion 800 mL * Agents Name O2% N2O O2 * Blood No blood administrations on file. Lines, Drains, and Airways Type Details Placement Removal Peripheral IV Placement Date: 08/11 02/28; Placement Time: 1339; Catheter Size: 20 G; Orientation: Right; Location: Antecubital; Site Prep: Chlorhexidine; Technique: Anatomical landmarks; Inserted by: Latonia Poe RN; Insertion Attempts: 1; Patient Tolerance: Tolerated well; Removal Date: 09/07/18; Removal Time: 1715; Removal Reason: Therapy completed 09/07/18 1339 by Latonia Poe RN 09/07/18 1715 by Laurence Delcid RN documented in this encounter Social History Tobacco Use Types Packs/Day Years Used Date Smoking Tobacco: Never Smokeless Tobacco: Never Alcohol Use Standard Drinks/Week Comments Not Currently 0 (1 standard drink = 0.6 oz pur e alcohol) Sex and Gender Information Value Date Recorded Sex Assigned at Not on file Legal Sex Male 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 Gender Identity Not on file Sexual Orientation Not on file documented as of this encounter OR Notes * Anesthesia Postprocedure Evaluation - Peyton Garcia MD - 09/07/2018 5:04 PM CDT Patient: Balbir Noriega Procedure Summary Date: 09/07/18 Room / Location: [facility]COPY ROOM 5 / [facility] Anesthesia Start: 1450 Anesthesia Stop: 1607 Procedure: COLON BIOPSY (N/A Colon) Diagnosis: Ulcerative colitis with complication, unspecified location (CMS/HCC) (Ulcerative colitis with complication, unspecified location (CMS/HCC) [K51.919]) Provider: Kristie Cormier MD Responsible Provider: Peyton Garcia MD Anesthesia Type: MAC ASA Status: 2 Anesthesia Type: MAC Last vitals BP 98/60 Pulse 52 Temp 36.7 ??C (98.1 ??F) Resp 17 SpO2 96% Anesthesia Post Evaluation Patient location during evaluation: PACU Patient participation: complete - patient participated Level of consciousness: fully awake Pain score: 0 Pain management: adequate Airway patency: adequate Anesthetic complications: no Cardiovascular status: acceptable and hemodynamically stable Respiratory status: acceptable and room air Hydration status: acceptable Pt is: normothermic Nausea/Vomiting status: none * Anesthesia Preprocedure Evaluation - Patti Hess, SENIOR ACCOUNT DIRECTOR - 09/07/2018 2:22 PM CDT Anesthesia Evaluation Balbir Noriega is a 23 y.o. male Procedure(s): COLONOSCOPY mccray prep Pre-Op Diagnosis Codes: * Ulcerative colitis with complication, unspecified location (CMS/HCC) [K51.919] Patient Active Problem List Diagnosis ??? Instability of shoulder joint ??? Superior glenoid labrum lesion of shoulder ??? Ulcerative colitis with complication (CMS/HCC) Past Medical History: Diagnosis Date ??? Awareness under anesthesia ??? Ulcerative colitis (CMS/HCC) Past Surgical History: Procedure Laterality Date ??? COLONOSCOPY ??? SHOULDER SURGERY Left Allergies Allergen Reactions ??? Penicillins Rash HOME MEDICATIONS : budesonide DR/ER (UCERIS) 9 mg tablet, delayed & ext.release dicyclomine (BENTYL) 10 mg capsule tofacitinib (XELJANZ) 5 mg tablet Current Facility-Administered Medications: ??? sodium chloride 0.9% flush 0.5-20 mL, 0.5-20 mL, intra-catheter, PRN ??? sodium chloride 0.9% infusion, 30 mL/hr, intravenous, Continuous, Last Rate: 30 mL/hr at 09/07/18 1339, 30 mL/hr at 09/07/18 1339 Social History Tobacco Use Smoking Status Never Smoker Smokeless Tobacco Never Used Substance and Sexual Activity Alcohol Use Not Currently Substance and Sexual Activity Drug Use Never Family History Problem Relation Age of Onset ??? No Known Problems Mother ??? No Known Problems Father ??? Lung cancer Maternal Grandfather PAT Physical Exam Vitals: 09/07/18 1330 BP: 131/73 Pulse: 60 Resp: 10 Temp: 36.5 ??C (97.7 ??F) SpO2: 100% PT: No results found for requested labs within last 720 hours. INR: No results found for requested labs within last 720 hours. APTT: No results found for requested labs within last 720 hours. Hgb A1C: No results found for requested labs within last 720 hours. CBC RBC: No results found for requested labs within last 720 hours. RDW: No results found for requested labs within last 720 hours. MCHC: No results found for requested labs within last 720 hours. MCH: No results found for requested labs within last 720 hours. MCV: No results found for requested labs within last 720 hours. Hct: No results found for requested labs within last 720 hours. Hgb: No results found for requested labs within last 720 hours. WBC: No results found for requested labs within last 720 hours. MPV: No results found for requested labs within last 720 hours. Platelets: No results found for requested labs within last 720 hours. RDW CV: No results found for requested labs within last 720 hours. RDW Sd: No results found for requested labs within last 720 hours. BMP Glucose: No results found for requested labs within last 720 hours. Calcium: No results found for requested labs within last 720 hours. Sodium: No results found for requested labs within last 720 hours. Potassium: No results found for requested labs within last 720 hours. CO2: No results found for requested labs within last 720 hours. Chloride: No results found for requested labs within last 720 hours. BUN: No results found for requested labs within last 720 hours. Creatinine: No results found for requested labs within last 720 hours. DOS Physical Exam Medical history, medications, and allergies reviewed. Attestation: With today's edits, I endorse the findings of the procedural assessment dated: 09/07/2018. Airway Exam: Mallampati: I Cardiovascular Exam: Rate: regular Rhythm: regular Pulmonary Exam: LCTA, bilat Dental Exam: Appears intact Skin Exam: Skin is warm. Current state: Patient's current state is cooperative. Anesthesia Plan ASA 2 My patient is approved for the Anesthesia Controlled Medication protocol when under care of a MARINE MECHANIC Planned anesthesia: MAC Induction: Induction: intravenous. Informed Consent: Anesthesia plan and risks discussed with patient. Plan and Consent Comments: NPO status confirmed. Patti Carlos, am scribing for, and in the presence of Dr. Garcia. No interval change in medical condition. Consent and Attending signature: I and/or my designee have discussed the anesthesia plan, benefits, possible alternatives, parental presence at time of induction (if indicated), and clinically relevant risks that may include dental injury, unintentional awareness, and/or other complications. The patient and/or parent/legal guardian understand, and agree to proceed. All questions answered. Cosigned by Peyton Garcia MD at 09/07/2018 2:27 PM CDT documented in this encounter Plan of Treatment Not on file documented as of this encounter Visit Diagnoses Not on filedocumented in this encounter Administered Medications Inactive Administered Medications - up to 3 most recent administrations Medication Order MAR Action Action Date Dose Rate Site midazolam (VERSED) preservative free injection intravenous, Administer over 2 Minutes, As needed, Starting on Mon09/07/18 at 1456, Anesthesia Intra-op Given 09/07/2018 2:56 PM CDT 2 mg propofol (DIPRIVAN) IV intravenous, As needed, Starting on Mon09/07/18 at 1456, Anesthesia Intra-op Given 09/07/2018 2:56 PM CDT 100 mg propofol (DIPRIVAN) IV intravenous, Continuous PRN, Starting on Mon09/07/18 at 1456, Anesthesia Intra-op New Bag 09/07/2018 2:56 PM CDT 170 mcg/kg/min 98.12 mL/hr documented in this encounter Care Teams Bricklayer Tender Relationship Specialty Start Date End Date Tracey Acosta PA PCP - General Physician Track Repairer 03/06/18 documented as of this encounter
--- OUTSIDE RECORDS SUMMARY | 2024-06-16 05:08 | XMS_ITS | Encounter Summary ---
Author Organization [facility] Address [address] [place] [address] Phone Care Team Providers Care Product Controller Name Role Phone Tracey Acosta Primary Care Pr ovider Encounter Details Date Type Department Care Team (Late st Contact Info) Description 03/09/2018 Orders Only [facility] Gastroenterology [address] [facility] Advanced Medicine 8th [place] [address] [place] [address] Rebecca Reyes PA [address] [place] [address] Social History Tobacco Use Types Packs/Day Years Used Date Smoking Tobacco: Never Sex and Gender Information Value Date Recorded Sex Assigned at Not on file 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 dicyclomine (BENTYL) 10 mg capsule TK ONE C PO TID PRN 0 01/10/2018 08/08/2019 added in this encounter Care Teams Product Controller Relationship Specialty Start Date End Date Tracey Acosta PA PCP - General Physician Microfilm Technician 03/06/18 documented as of this encounter
--- OUTSIDE RECORDS SUMMARY | 2024-06-16 05:08 | XMS_ITS | Encounter Summary ---
Author Organization [facility] Facility Care Team Providers Care Leather Colorer Name Role Phone Unavailable Primary Care Provider Unavailabl e Encounter Details Date Type Department Care Team (Latest Contact Info) Description 09/22/2015 5:38 AM CDT - 09/22/2015 4:00 PM CDT Hospital Encounter [facility] [place] [id number] [place] [address] Superior glenoid labrum lesion of left shoulder, subsequent encounter; Other instability, left shoulder; Allergy status to penicillin; Ulcerative colitis without complications (CMS/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 Surgeon: Win Amin M.D. Dictating: Win Amin M.D. Service Dt: 09/22/2015 OPERATIVE REPORT FACILITY: [facility] FIRST SITE ACQUISITION MANAGER: None. ANESTHESIA: General endotracheal anesthesia. PREOPERATIVE DIAGNOSIS (ES): Extensive labral tear left shoulder. POSTOPERATIVE DIAGNOSIS (ES): 1. Type 3 slap tear left shoulder. 2. Anterior-inferior labral tear left shoulder. NAME OF OPERATION: 3. Arthroscopic repair left shoulder. 4. Anterior-inferior labral repair left shoulder. INDICATIONS FOR PROCEDURE: The patient is a 20 year-old male with history of recurrent shoulder instability. MRI was obtained consistent with a tear of the anterior-inferior labrum in addition to a Hill-Sachs deformity. He presents at this time for labral time. He was apprised of the need for operation as well as the risks associated with the procedure including bleeding, infection, anesthesia complications, neurovascular injury, motion loss, persistent pain, recurrent instability and informed consent was obtained. DESCRIPTION OF PROCEDURE: After adequate anesthesia was obtained a timeout was performed confirming the left upper extremity was the correct operative side. The patient was placed in the beach chair position. The left shoulder and upper extremity were prepped with DuraPrep and draped in sterile fashion. The 30 degree arthroscope was placed at the posterior portal. Using it anteriorly, the bony humeral joint was insufflated with lactated Ringer's using an Arthrex pump and an anterior portal was established. There was noted to be a tear in the anterior-inferior labrum from approximately 7 o'clock to 10 o'clock. There was robust labral tissue present. There was also noted to be a type 3 slap tear superiorly. The biceps tendon was otherwise grossly intact. There was no subluxation. The subscapularis was intact. There were no loose bodies in the axillary pouch. There was noted to be a small Hill-Sachs deformity posteriorly but the glenoid was intact. There was no posterior labral tear. The rotator cuff was pristine. An accessory anterolateral portal was established in the rotator interval. Attention was first taken to the slap tear. The superior glenoid rim was debrided with an arthroscopic rasp and the edges of the type 3 tear were debrided with an arthroscopic shaver. An Arthrex PushLock drill was used to place a drill hole in the superior glenoid. A 45 degree right Spectrum Suture Passer was passed through the posterior leaflet of the slap tear. A #2 suture was threaded through this same pass and threaded through the Arthrex PushLock [place] which was embedded under the labral tear causing good apposition of the size of the tear. A second [place] was placed anterior to the first [place]. The superior labrum was stable following the repair. Attention was then taken to the anterior-inferior labrum. An arthroscopic javi was used to debride the anterior-inferior glenoid rim from approximately 7 o'clock to 10 o'clock. A total of three more Arthrex PushLock Anchors were placed which reestablished excellent anterior-inferior soft tissue bumper to the glenoid. The arthroscope was placed in the anterior portal to confirm adequate placement of all hardware as well as confirm no further posterior labral tears were evident. All arthroscopic equipment was removed from the joint. The shoulder was expressed of all excess fluid. The portals were closed with interrupted suture of 4-0 nylon. A sterile compression dressing was applied to the wound. The arm was placed in a sling. The patient was awakened, extubated, and transferred to the recovery room in stable condition. There were no complications evident. I was present during the operation from the induction of the anesthesia through final sling placement. SPECIMENS REMOVED: None. ESTIMATED BLOOD LOSS: Minimal. INTRAOPERATIVE FLUIDS: 1,400 mL crystalloid COMPLICATIONS: None apparent. Electronically Authenticated and Edited by: Win Amin MD On 09/22/2015 06:31 PM CDT Yolande Pan:laila #[id number] Editing MT: laila TD: 09/22/2015 10:53 AM cc: Win Amin M.D. documented in this encounter Plan of Treatment Not on file documented as of this encounter Visit Diagnoses Diagnosis Superior glenoid labrum lesion of left shoulder, subsequent encounter Other instability, left shoulder Allergy status to penicillin Ulcerative colitis without complications (CMS/HCC) ([facility]) Engages in activity Unspecified place or not applicable documented in this encounter
--- OUTSIDE RECORDS SUMMARY | 2024-06-16 05:08 | XMS_ITS | Encounter Summary ---
Author Organization [facility] Address [address] [place] [address] Phone Care Team Providers Care Talent Partner Name Role Phone Tracey Acosta Primary Care Pr ovider Encounter Details Date Type Department Care Team (Late st Contact Info) Description 09/19/[address] 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 Informed pt that there was active inflammation seen in bx from his procedure. Asked ptto call to reschedule MRI since last one was no-showed and new order would be needed. documented in this encounter Plan of Treatment Not on file documented as of this encounter Visit Diagnoses Not on filedocumented in this encounter Care Teams Talent Partner Relationship Specialty Start Date End Date Tracey Acosta PA PCP - General Physician Boat Assembler 03/06/18 documented as of this encounter
--- OUTSIDE RECORDS SUMMARY | 2024-06-16 05:08 | XMS_ITS | Encounter Summary ---
Author Organization [facility] Address [address] [place] [address] Phone Care Team Providers Care Fire Systems Inspector Name Role Phone Tracey Acosta Primary Care Pr ovider Encounter Details Date Type Department Care Team (Late st Contact Info) Description 07/18/2018 Telephone [facility] 8th [place] [address] [place] [address] Monica Fry, THOMAS Social History Tobacco Use Types Packs/Day Years Used Date Smoking Tobacco: Never Smokeless Tobacco: Never Sex and Gender Information Value Date Recorded Sex Assigned at Not on file 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 tofacitinib (XELJANZ) 5 mg tablet 360 tablet 3 Sig: Take 2 tablets (10 mg total) by mouth 2 (two) times a day. CAN THIS DRUG BE FILLED AT ANY PHARMACY?: unknown DOES THIS DRUG REQUIRE THE USE OF A SPECIALTY PHARMACY?: unknown PHARMACY NAME: PHONE#: FAX#: AUTH#: [id number] EFFECTIVE: 07/18/2018 EXPIRES: 07/18/2019 NOTES: Completed by: Marybeth Lea THEATRE TECHNICIAN THEATRE TECHNICIAN * Telephone Encounter - Monica Fry RN - 07/18/2018 9:03 AM CST [facility] for xeljanz THEATRE TECHNICIAN documented in this encounter Plan of Treatment Not on file documented as of this encounter Visit Diagnoses Not on filedocumented in this encounter Care Teams Fire Systems Inspector Relationship Specialty Start Date End Date Tracey Acosta PA PCP - General Physician Client Coordinator 03/06/18 documented as of this encounter
--- OUTSIDE RECORDS SUMMARY | 2024-06-16 05:08 | XMS_ITS | Encounter Summary ---
Author Organization [facility] Healthcare Address [address] [place] [address] Care Team Providers Care Customer Insight Analyst Name Role Phone Tracey Acosta Primary Care Pr ovider Encounter Details Date Type Department Care Team (Latest Contact Info) Description 09/07/2018 12:30 PM CDT - 09/07/2018 5:31 PM CDT Hospital Encounter [facility] [address] [place] [address] Kristie Cormier MD [address] [place] [address] Ulcerative colitis with complication, unspecified location ([facility]) Discharge Disposition: Discharge to home or self care Social History Tobacco Use Types Packs/Day Years Used Date Smoking Tobacco: Never Smokeless Tobacco: Never Alcohol Use Standard Drinks/Week Comments Not Currently 0 (1 standard drink = 0.6 oz pur e alcohol) Sex and Gender Information Value Date Recorded Sex Assigned at Not on file 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 Gender Identity Not on file Sexual Orientation Not on file documented as of this encounter Last Filed Vital Signs Vital Sign Reading Time Taken Comments Blood Pressure 105/70 09/07/2018 5:15 PM CDT Pulse 55 09/07/2018 5:15 PM CDT Temperature 36.7 ??C (98.1 ??F) 09/07/2018 4:07 PM CD T Respiratory Rate 15 09/07/2018 5:15 PM CDT Oxygen Saturation 98% 09/07/2018 5:15 PM CDT Inhaled Oxygen Concentration - - Weight 96.2 kg (212 lb) 09/07/2018 1:30 PM CDT Height 180.3 cm (5' 11 ) 09/07/2018 1:30 PM CDT Body Mass Index 29.57 09/07/2018 1:30 PM CDT documented in this encounter Medications at Time of Discharge budesonide DR/ER (UCERIS) 9 mg tablet, delayed & ext.releaseIndica tions:Ulcerative Colitis Take 1 tablet (9 mg total) by mouth daily. 30 tablet 1 07/17/2018 08/08/2019 dicyclomine (BENTYL) 10 mg capsule TK ONE C PO TID PRN 0 01/10/2018 08/08/2019 tofacitinib (XELJANZ) 5 mg tablet Take 2 tablets (10 mg total) by mouth 2 (two) times a day. 360 tablet 3 07/18/2018 07/18/2019 documented as of this encounter Discharge Disposition Disposition Code Departure Means Destination Discharge to home or self care documented in this encounter Procedure Notes * Kristie Cormier MD - 09/07/2018 2:56 PM CDTAssociated Order(s): COLONOSCOPY GI ENDOSCOPY [facility] Patient Name: Mireille Noriega Procedure Date: 09/07/2018 2:56 PM Date of : 1995 Admit Type: Outpatient Age: 23 Gender: Male Attending MD: Kristie Cormier M.D. Room: [facility] ENDOSCOPY ROOM 5 Note Status: Finalized Procedure: Colonoscopy Indications: Disease activity assessment of chronic ulcerative pancolitis Referring MD: Obdulia Lopez Providers: Kristie Cormier M.D. Medicines: Monitored Anesthesia Care Complications: No immediate complications. Estimated blood loss: Minimal. Estimated Blood Loss: Estimated blood loss was minimal. Procedure: Pre-Anesthesia Assessment: - Immediately prior to administration of medications, the patient was re-assessed for adequacy to receive sedatives. - The risks and benefits of the procedure and the sedation options and risks were discussed with the patient. All questions were answered and informed consent was obtained. The benefits, risks and alternatives of the procedure and sedation were discussed and informed consent was obtained. All questions were answered. Please refer to the signed informed consent document in the medical record. The scope was passed under direct vision. The [id number] endoscope was introduced through the anus and advanced to 10 cm into the ileum. The colonoscopy was performed without difficulty. The patient tolerated the procedure well. The quality of the bowel preparation was good. The bowel preparation used was Miralax. Bowel prep was administered using a split dose. Findings: The perianal and digital rectal examinations were normal. The terminal ileum appeared normal. Biopsies were taken with a cold forceps for histology. Inflammation characterized by erythema, granularity, loss of vascularity, mucus and aphthous ulcerations was found as large patches surrounded by normal mucosa in the hepatic flexure. The ascending colon and the cecum were spared. This was graded as Rowland Score 3 (severe, with spontaneous bleeding, ulcerations). Biopsies were taken with a cold forceps for histology. Normal mucosa was found in the ascending colon and in the cecum. Biopsies were taken with a cold forceps for histology. Normal mucosa was found in the descending colon. Biopsies were taken with a cold forceps for histology. Inflammation was found as medium patches surrounded by normal mucosa in the sigmoid colon. This was graded as Rowland Score 2 (moderate, with marked erythema, absent vascular pattern, friability, erosions). Biopsies were taken with a cold forceps for histology. Inflammation was found in a continuous and circumferential pattern from the anus to the rectum. This was graded as Rowland Score 2 (moderate, with marked erythema, absent vascular pattern, friability, erosions). Scattered pseudopolyps were found in the recto-sigmoid colon. Biopsies were taken with a cold forceps for histology. Impression: - The examined portion of the ileum was normal. Biopsied. - Colitis. Inflammation was found in the hepatic flexure. This was graded as Rowland Score 3 (severe disease). Biopsied. - Normal mucosa in the ascending colon and in the cecum. Biopsied. - Normal mucosa in the descending colon. Biopsied. - Moderately active (Rowland Score 2) ulcerative colitis. Biopsied. - Inflammation was found from the anus to the rectum. This was graded as Rowland Score 2 (moderate disease). - Pseudopolyps in the recto-sigmoid colon. Biopsied. Recommendation: - Await pathology results. - MR enterography to rule out small bowel disease due to Crohn's disease Electronically signed by Kristie Cormier MD Kristie Cormier M.D. 09/07/2018 4:13:26 PM . Number of Addenda: 0 Note Initiated On: 09/07/2018 2:56 PM Recognized by the [employer] for promoting quality in endoscopy documented in this encounter Plan of Treatment Not on file documented as of this encounter Procedures Procedure Name Priority Date/Time Associated Diagnosis Comments SURGICAL PATHOLOGY Routine 09/07/2018 3: 34 PM CDT Ulcerative colitis with complication, unspecified location (CMS/HCC) COLONOSCOPY 09/07/2018 2:56 PM CDT COLON BIOPSY 09/07/2018 2:50 PM CDT Ulcerative colitis with complication, unspecified location (CMS/HCC) documented in this encounter Results * Surgical pathology (09/07/2018 3:34 PM CDT) Tissue (Ileum, Biopsy) 09/07/2018 3:34 PM CDT Tissue (Colon, Biopsy) 09/07/2018 3:40 PM CDT Tissue (Colon, Biopsy) 09/07/2018 3:44 PM CDT Tissue (Colon, Biopsy) 09/07/2018 3:47 PM CDT Tissue (Colon, Biopsy) 09/07/2018 3:50 PM CDT Tissue (Polyp(s), colon/colorectal, esophageal, gastric) 09/07/2018 3:53 PM CDT Narrative PATHOLOGY [facility] - 09/10/2018 4:43 PM CDT EPIC results best viewed via link to PDF [facility] [place] [address] SURGICAL PATHOLOGY REPORT FINAL Patient Name: ?? MIREILLE NORIEGA Gender: ??M : ??1995 (Age: 23) Address: ??[address] [place] [id number] Hospital #: ??[id number] Taken:09/07/2018 Received:09/07/2018 Reported: 09/10/2018 Patient Type: [facility] ?? Service: Gastro Location: [facility] Physician(s): ??Yolande Colmenares Diagnosis: A. Small bowel, terminal ileum, biopsy ? - Ileal mucosa with no histopathologic abnormality B. Large bowel, right colon, biopsy ? - Colonic mucosa with largely preserved architecture, patchy cryptitis and crypt abscess - No viral inclusions, parasites, granuloma, or dysplasia C. Large bowel, transverse colon, biopsy ? - Chronic active colitis, with prominent crypt abscesses - No viral inclusions, granuloma, or dysplasia D. Large bowel, descending colon, biopsy ? - Inactive chronic colitis, with glandular architectural disarray, Paneth cell metaplasia, and increased eosinophils - No activity, granuloma, or dysplasia E. Large bowel, rectosigmoid, biopsy ? - Inactive chronic colitis/ proctitis, with glandular architectural disarray, Paneth cell metaplasia, and increased eosinophils - No activity, granuloma, or dysplasia F. Large bowel, rectosigmoid, polyps, biopsy ? - Inflammatory pseudopolyps, no dysplasia dc/09/10/2018 16:43 By this signature, I attest that the above diagnosis is based upon my personal examination of the slides(and/or other material indicated in the diagnosis). Clifton Soares M.D. Report Electronically Reviewed and Signed Out By ??Clifton Soares M.D. 09/10/2018 16:43:35 Microscopic Description and Comment: Microscopic examination substantiates the above cited diagnosis. History: The patient is a 23-year-old man with ulcerative colitis with complication. ??Operative procedure: Colonoscopy with biopsy. Specimen(s) Received: A: Ileum cold biopsy B: Right colon cold biopsy C: Transverse colon cold biopsy D: Descending colon cold biopsy E: Recto-sigmoid colon cold biopsy F: Recto-sigmoid colon polyp cold biopsy Gross Description: The specimens are received in six formalin filled containers each labeled with the patient's name. A. ??The first container is received labeled with ileum cold biopsy and consists of multiple holliday-pink irregular fragment(s) of soft tissue measuring 0.6 x 0.5 x 0.2 cm in aggregate. ??Labeled A1. ??Jar 0. B. ??The second container is received labeled with right colon cold biopsy and consists of two holliday-pink irregular fragment(s) of soft tissue measuring 0.6 x 0.5 x 0.2 cm in aggregate. ??Labeled B1. ??Jar 0. C. ??The third container is received labeled with transverse colon cold biopsy and consists of three holliday-pink irregular fragment(s) of soft tissue measuring 0.8 x 0.4 x 0.2 cm in aggregate. ??Labeled C1. ??Jar 0. D. ??The fourth container is received labeled with descending colon cold biopsy and consists of three holliday-pink irregular fragment(s) of soft tissue measuring 0.8 x 0.4 x 0.2 cm in aggregate. ??Labeled D1. ??Jar 0. E. ??The fifth container is received labeled with rectal-sigmoid colon cold biopsy and consists of three holliday-pink irregular fragment(s) of soft tissue measuring 0.6 x 0.4 x 0.2 cm in aggregate. ??Labeled E1. ??Jar 0. F. The sixth container is received labeled with rectal-sigmoid colon polyp cold biopsy and consists of two holliday-pink irregular fragment(s) of soft tissue measuring 0.7 x 0.4 x 0.2 cm in aggregate. ??Labeled F1. ??Jar 0. mr2/09/07/2018 18:35 Sravanthi Vasquez MS, PA (ASC By this signature, I attest that the above diagnosis is based upon my personal examination of the slides(and/or other material). The performance characteristics of some immunohistochemical stains, fluorescence in-situ hybridization tests and immunophenotyping by flow cytometry cited in this report (if any) were determined by the Surgical Pathology Department at [facility] as part of an ongoing quality assurance monitor program and in compliance with federally mandated regulations drawn from the Clinical Laboratory Improvement Act of 1988 (CLIA '88). ??Some of these tests rely on the use of analyte specific reagents and are subject to specific labeling requirements by the US Food and Drug Administration. ??Such diagnostic tests may only be performed in a facility that is certified by the Department of Health and Human Services as a high complexity laboratory under CLIA '88. ??The FDA has determined that such clearance or approval is not necessary. ??This test is used for clinical purposes. ??It should not be regarded as investigational or for research. ??Nevertheless, federal rules concerning the medical use of analyte specific reagents require that the following disclaimer be attached to the report: This test was developed and its performance characteristics determined by the Surgical Pathology Department of [facility]. ??It has not been cleared or approved by the U. S. Food and Drug Administration. IMAGES AND SCANNED DOCUMENTS, IF INCLUDED, ONLY VIEWABLE IN PDF VERSION OF REPORT us Kristie Cormier MD LAB PATHOLOGY ORDERABLES Avril anton Result PATHOLOGY [facility] 3rd Floor [place], [place] [phone] * COLONOSCOPY (09/07/2018 2:56 PM CDT) Anatomical Region Laterality Modality Other Narrative Procedure Note Kristie Cormier MD - 09/07/2018 2:56 PM CDT GI ENDOSCOPY [facility] Patient Name: Mireille Noriega Procedure Date: 09/07/2018 2:56 PM Date of : 1995 Admit Type: Outpatient Age: 23 Gender: Male Attending MD: Kristie Cormier M.D. Room: [facility] ENDOSCOPY ROOM 5 Note Status: Finalized Procedure: Colonoscopy Indications: Disease activity assessment of chronic ulcerative pancolitis Referring MD: Obdulia Lopez Providers: Kristie Cormier M.D. Medicines: Monitored Anesthesia Care Complications: No immediate complications. Estimated blood loss: Minimal. Estimated Blood Loss: Estimated blood loss was minimal. Procedure: Pre-Anesthesia Assessment: - Immediately prior to administration ofmedications, the patient was re-assessed for adequacy to receive sedatives. - The risks and benefits of the procedure and the sedation options and risks were discussed with the patient. All questions were answered and informed consent was obtained. The benefits, risks and alternatives of theprocedure and sedation were discussed and informed consent was obtained. All questions were answered. Please referto the signed informed consent document in the medical record. The scope was passed under direct vision.The [id number] endoscope was introduced throughthe anus and advanced to 10 cm into the ileum. The colonoscopy was performed without difficulty. The patient tolerated the procedure well. The quality of the bowel preparation was good. The bowelpreparation used was Miralax. Bowel prep was administered usinga split dose. Findings: The perianal and digital rectal examinations were normal. The terminal ileum appeared normal. Biopsies were taken with a cold forceps for histology. Inflammation characterized by erythema, granularity, loss of vascularity, mucus and aphthous ulcerations was found as largepatches surrounded by normal mucosa in the hepatic flexure. The ascendingcolon and the cecum were spared. This was graded as Rowland Score 3 (severe,with spontaneous bleeding, ulcerations). Biopsies were taken with a cold forceps for histology. Normal mucosa was found in the ascending colon and in the cecum. Biopsies were taken with a cold forceps for histology. Normal mucosa was found in the descending colon. Biopsies were taken with a cold forceps for histology. Inflammation was found as medium patches surrounded by normal mucosain the sigmoid colon. This was graded as Rowland Score 2 (moderate, with marked erythema, absent vascular pattern, friability, erosions). Biopsies were taken with a cold forceps for histology. Inflammation was found in a continuous and circumferential patternfrom the anus to the rectum. This was graded as Rowland Score 2 (moderate,with marked erythema, absent vascular pattern, friability, erosions). Scattered pseudopolyps were found in the recto-sigmoid colon.Biopsies were taken with a cold forceps for histology. Impression: - The examined portion of the ileum was normal. Biopsied. - Colitis. Inflammation was found in the hepatic flexure. This was graded as Rowland Score 3 (severe disease). Biopsied. - Normal mucosa in the ascending colon and in the cecum. Biopsied. - Normal mucosa in the descending colon. Biopsied. - Moderately active (Rowland Score 2) ulcerativecolitis. Biopsied. - Inflammation was found from the anus to therectum. This was graded as Rowland Score 2 (moderatedisease). - Pseudopolyps in the recto-sigmoid colon.Biopsied. Recommendation: - Await pathology results. - MR enterography to rule out small bowel diseasedue to Crohn's disease Electronically signed by Kristie Cormier MD Kristie Cormier M.D. 09/07/2018 4:13:26 PM . Number of Addenda: 0 Note Initiated On: 09/07/2018 2:56 PM Recognized by the [employer] for promoting quality in endoscopy Kristie Cormier MD ENDOSCOPY PROCEDURES Final Re sult documented in this encounter Visit Diagnoses Diagnosis Ulcerative colitis with complication, unspecified location (HCC) documented in this encounter Admitting Diagnoses Diagnosis Ulcerative colitis with complication (HCC) documented in this encounter Administered Medications Inactive Administered Medications - up to 3 most recent administrations Medication Order MAR Action Action Date Dose Rate Site sodium chloride 0.9% flush 0.5-20 mL 0.5-20 mL, intra-catheter, As needed, line care, Starting on Mon09/07/18 at 1339, Pre-Procedure (GI), Flush volume based on line type and size. Flush before and after each use. , Indications: FlushingIndications:Flushing sodium chloride 0.9% infusion 30 mL/hr, intravenous, Continuous, Starting on Mon09/07/18 at 1415, Pre-Procedure (GI) New Bag 09/07/2018 4:50 PM CDT 30 mL/hr 30 mL/hr New Bag 09/07/2018 1:39 PM CDT 30 mL/hr 30 mL/hr documented in this encounter Active and Recently Administered Medications Times are shown in CDT. Continuous Medication Order 09/05/2018 09/06/2018 09/07/2018 sodium chloride 0.9% infusion 30 mL/hr, intravenous, Continuous, Starting on Mon09/07/18 at 1415, Pre-Procedure (GI) 1339 (New Bag - Prov ider: Latonia Poe RN)1607 (Anesthesia Volume Adjustment - Provider: Day Izaguirre CRNA)1650 (New Bag - Provider: Laurence Geiger, THOMAS)1715 (Stopped - Provider: Laurence Geiger RN) PRN Medication Order 09/05/2018 09/06/2018 09/07/2018 ondansetron (ZOFRAN) injection 4 mg 4 mg, intravenous, Administer over 2 Minutes, Every 30 min PRN, nausea, vomiting, Starting on Mon09/07/18 at 1624, For 2 doses, Recovery (GI), Indications: Nausea and Vomiting sodium chloride 0.9% flush 0.5-20 mL 0.5-20 mL, intra-catheter, As needed, line care, Starting on Mon09/07/18 at 1339, Pre-Procedure (GI), Flush volume based on line type and size. Flush before and after each use. , Indications: Flushing documented in this encounter Orders Medications Ordered That Juan ht Not Have Been Administered Count Last Ordered Date First Ordered Date ondansetron (ZOFRAN) injection 4 mg 1 09/07 sodium chloride 0.9% flush 0.5-20 mL 1 08/11 documented in this encounter Care Teams Customer Insight Analyst Relationship Specialty Start Date End Date Tracey Acosta PA PCP - General Physician Negative Cutter 03/06/18 documented as of this encounter
--- OUTSIDE RECORDS SUMMARY | 2024-06-16 05:08 | XMS_ITS | Encounter Summary ---
Author Organization [facility] Address [address] [place] [address] Phone Care Team Providers Care Business Employment Specialist Name Role Phone Tracey Acosta Primary Care Pr ovider Encounter Details Date Type Department Care Team (Late st Contact Info) Description 09/24/2018 Telephone [facility] Gastroenterology [facility] [address] [place] [address] [place] [address] Hue Yang LPN Social History Tobacco Use Types Packs/Day Years Used Date Smoking Tobacco: Never Smokeless Tobacco: Never Alcohol Use Standard Drinks/Week Comments Not Currently 0 (1 standard drink = 0.6 oz pur e alcohol) Sex and Gender Information Value Date Recorded Sex Assigned at Not on file 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 He reports that he went to get his MRI after his colonoscopy but the facility told him they did not have anything in the system for him. Informed him that we need him to get his labs done as well. He stated he would reschedule his MRI today and also get is labs done as soon as he can. He had no other questions or concerns at this time. documented in this encounter Plan of Treatment Not on file documented as of this encounter Visit Diagnoses Not on filedocumented in this encounter Care Teams Business Employment Specialist Relationship Specialty Start Date End Date Tracey Acosta PA PCP - General Physician Courtesy Van Driver 03/06/18 documented as of this encounter
--- OUTSIDE RECORDS SUMMARY | 2024-06-16 05:08 | XMS_ITS | Encounter Summary ---
Author Organization 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 Gender Identity Not on file Sexual Orientation Not on file documented as of this encounter Plan of Treatment Not on file documented as of this encounter Procedures Procedure Name Priority Date/Time Associated Diagnosis Comments SCAN - LABS 08/21/2018 documented in this encounter Results * SCAN - LABS (08/21/2018) us Provider Scanning Final Result documented in this encounter Visit Diagnoses Not on filedocumented in this encounter Additional Health Concerns Infection Onset Date Last Indicated Resolved Time COVID: Suspected 10/28/2021 10/28/2021 10/28/2021 1:13 PM CDT documented as of this encounter Care Teams Saw Grinder Relationship Specialty Start Date End Date Tracey Acosta PA PCP - General Physician [facility] Manager 03/06/18 documented as of this encounter
--- OUTSIDE RECORDS SUMMARY | 2024-06-16 05:08 | XMS_ITS | Encounter Summary ---
Author Organization [facility] Address [address] [place] [address] Phone Care Team Providers Care Gang Vibrator Operator Name Role Phone Tracey Acosta Primary Care Pr ovider Encounter Details Date Type Department Care Team (Late st Contact Info) Description 07/24/2018 Orders Only [facility] Gastroenterology [address] [facility] Advanced Medicine 8th [place] [address] [place] [phone] Kristie Cormier MD [address] [place], [place] [id number] Ulcerative colitis with complication, unspecified location (CMS/HCC) (Primary Dx) Social History Tobacco Use Types Packs/Day Years Used Date Smoking Tobacco: Never Smokeless Tobacco: Never Sex and Gender Information Value Date Recorded Sex Assigned at Not on file 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 Gender Identity Not on file Sexual Orientation Not on file documented as of this encounter Plan of Treatment Not on file documented as of this encounter Procedures Procedure Name Priority Date/Time Associated Diagnosis Comments COPY(IES) SENT TO: Routine 08/21/2018 12 :45 PM CDT TB TEST, QUANTIFERON GOLD Routine 08/21/2018 12:45 PM CDT Ulcerative colitis with complication, unspecified location (CMS/HCC) documented in this encounter Results * COPY(IES) SENT TO: (08/21/2018 12:45 PM CDT) COPY(IES) SENT TO: [facility] Comment: ?[facility] ?COPY TO ACCOUNT ?[id number] ?[place] [address] 08/21/2018 12:4 5 PM CDT 08/22/2018 8:57 AM CDT us Kristie Cormier MD LAB BLOOD ORDERABLES Final Re sult [facility] * TB test, quantiferon gold (08/21/2018 12:45 PM CDT) QuantiFERON(R)-T B Gold Plus, 1 Tube NEGATIVE NEGATIVE [facility] Comment: Negative test result. M. tuberculosis complex infection unlikely. NIL 0.01 IU/mL [facility] [place] MITOGEN-NIL 9.81 IU/mL [facility] [place] TB1-NIL 0.00 IU/mL [facility] [place] TB2-NIL 0.00 IU/mL [facility] [place] Comment: The Nil tube value reflects the background interferon gamma immune response of the patient's blood sample. This value has been subtracted from the patient's displayed TB and Mitogen results. Lower than expected results with the Mitogen tube prevent false-negative Quantiferon readings by detecting a patient with a potential immune suppressive condition and/or suboptimal pre-analytical specimen handling. The TB1 Antigen tube is coated with the M. tuberculosis-specific antigens designed to elicit responses from TB antigen primed CD4+ helper T-lymphocytes. The TB2 Antigen tube is coated with the M. tuberculosis-specific antigens designed to elicit responses from TB antigen primed CD4+ helper and CD8+ cytotoxic T-lymphocytes. For additional information, please refer to http://education.[employer].Deem/faq/204 (This link is being provided for informational/ educational purposes only.) Blood specimen (specimen) 08/21/2018 12:45 PM CDT 08/22/2018 8:57 AM CDT Narrative Resulting Agency Comment Performing Organization Information: ?Site ID: [id number] ?Name: [employer] [facility] ?Address: [address] [address] ?Director: Jose Braksdale D.O., MPH us Kristie Cormier MD LAB BLOOD ORDERABLES Final Re sult [facility] [place] documented in this encounter Visit Diagnoses Diagnosis Ulcerative colitis with complication, unspecified location (HCC)- Primary documented in this encounter Care Teams Gang Vibrator Operator Relationship Specialty Start Date End Date Tracey Acosta PA PCP - General Physician Brineyard Supervisor 03/06/18 documented as of this encounter
--- OUTSIDE RECORDS SUMMARY | 2024-06-16 05:08 | XMS_ITS | Encounter Summary ---
Author Organization [facility] Facility Care Team Providers Care Ship'S Captain Name Role Phone Unavailable Primary Care Provider Unavailabl e Encounter Details Date Type Department Care Team (Late st Contact Info) Description 07/27/2015 10:55 AM ALTO SINGER - 07/27/2015 4:00 PM ALTO SINGER [facility] [place] [address] [place] [address] Pain in left shoulder Social History Tobacco Use Types Packs/Day Years Used Date Smoking Tobacco: Never Sex and Gender Information Value Date Recorded Sex Assigned at Not on file Legal Sex Male 7:03 AM ALTO SINGER Gender Identity Not on file Sexual Orientation Not on file documented as of this encounter Plan of Treatment Not on file documented as of this encounter Procedures Procedure Name Priority Date/Time Associated Diagnosis Comments XR CONSULT OF OUTSIDE FILMS (PEDS ONLY) Routine 07/27/2015 5:34 PM ALTO SINGER XR CONSULT OF OUTSIDE FILMS (PEDS ONLY) Routine 07/27/2015 5:33 PM ALTO SINGER XR SHOULDER 1 VW Routine 07/27/2015 11:1 0 AM ALTO SINGER CLINICAL IMAGE Routine 07/17/2015 12:24 PM ALTO SINGER documented in this encounter Results * XR Interpretation Of Outside Films (07/27/2015 5:34 PM ALTO SINGER) Anatomical Region Laterality Modality N/A Radiographic Pratibha ging 07/27/2015 5:34 PM ALTO SINGER Narrative 07/28/2015 7:20 AM ALTO SINGER OUTSIDE IMAGES FIELD COUNSEL, FINAL REPORT ACC# ??Date Time ??Exam [id number] Jul 27, 2015 17:33:00 [id number] [facility] MSK CT-MR Reference [id number] Jul 27, 2015 17:34:00 [id number] [facility] Plain Film Reference EXAMINATION: ?Images For Reference Purposes Only IMPRESSION: ?These images have been uploaded for Reference purposes only. ??There will be no separate report generated by a [facility] Radiologist. Requested By: Dictated By: ?? OUTSIDE IMAGES FIELD COUNSEL, ?? on Jul 28 2015 ??7:20A This document has been electronically signed by: OUTSIDE IMAGES FIELD COUNSEL, ??on Jul 28 2015 ??7:20A [id number] Procedure Note Provider, Alma, - 10/17/2016 OUTSIDE IMAGES FIELD COUNSEL, FINAL REPORT ACC# Date Time Exam [id number] Jul 27, 2015 17:33:00 [id number] [facility] MSK CT-MR Reference [id number] Jul 27, 2015 17:34:00 [id number] [facility] Plain Film Reference EXAMINATION: Images For Reference Purposes Only IMPRESSION: These images have been uploaded for Reference purposes only. There will be no separate report generated by a [facility] Radiologist. Requested By: Dictated By: OUTSIDE IMAGES FIELD COUNSEL, on Jul 28 2015 7:20A This document has been electronically signed by: OUTSIDE IMAGES FIELD COUNSEL, on Jul 28 2015 7:20A [id number] us Historical Provider IMG XR PROCEDURES Final R esult * XR Interpretation Of Outside Films (07/27/2015 5:33 PM ALTO SINGER) Anatomical Region Laterality Modality N/A Radiographic Pratibha ging 07/27/2015 5:33 PM ALTO SINGER Narrative 07/28/2015 7:20 AM ALTO SINGER OUTSIDE IMAGES FIELD COUNSEL, FINAL REPORT ACC# ??Date Time ??Exam [id number] Jul 27, 2015 17:33:00 [id number] [facility] MSK CT-MR Reference [id number] Jul 27, 2015 17:34:00 [id number] [facility] Plain Film Reference EXAMINATION: ?Images For Reference Purposes Only IMPRESSION: ?These images have been uploaded for Reference purposes only. ??There will be no separate report generated by a [facility] Radiologist. Requested By: Dictated By: ?? OUTSIDE IMAGES FIELD COUNSEL, ?? on Jul 28 2015 ??7:20A This document has been electronically signed by: OUTSIDE IMAGES FIELD COUNSEL, ??on Jul 28 2015 ??7:20A [id number] Procedure Note Provider, Alma, - 10/17/2016 OUTSIDE IMAGES FIELD COUNSEL, FINAL REPORT ACC# Date Time Exam [id number] Jul 27, 2015 17:33:00 [id number] [facility] MSK CT-MR Reference [id number] Jul 27, 2015 17:34:00 [id number] [facility] Plain Film Reference EXAMINATION: Images For Reference Purposes Only IMPRESSION: These images have been uploaded for Reference purposes only. There will be no separate report generated by a [facility] Radiologist. Requested By: Dictated By: OUTSIDE IMAGES FIELD COUNSEL, on Jul 28 2015 7:20A This document has been electronically signed by: OUTSIDE IMAGES FIELD COUNSEL, on Jul 28 2015 7:20A [id number] Historical Provider MD BOYD XR PROCEDURES Final R esult * XR Shoulder 1VW (07/27/2015 11:10 AM ALTO SINGER) Anatomical Region Laterality Modality Shoulder N/A Radiographic Pratibha ging 07/27/2015 11:1 0 AM ALTO SINGER Narrative 07/27/2015 11:14 AM ALTO SINGER RANDALL COLLIER M.D. FINAL REPORT ACC# ??Date Time ??Exam [id number] Jul 27, 2015 11:10:00 [id number] Shoulder 1 view L EXAMINATION: ? Left shoulder, one view HISTORY: ??Left shoulder pain FINDINGS: ??A single axillary projection of the left shoulder is digitally-acquired. By itself, this constitutes an incomplete examination. The glenohumeral joint space and alignment are normal. There is a Hill-Sachs defect of the posterior humeral head. IMPRESSION: ?? One view examination of the left shoulder showing a humeral head Hill-Sachs defect. Requested By: Dictated By: ?? RANDALL COLLIER M.D. ??on Jul 27 2015 11:14A This document has been electronically signed by: RANDALL COLLIER M.D. on Jul 27 2015 11:14A [id number] Procedure Note Provider, Alma, - 10/17/2016 RANDALL COLLIER M.D. FINAL REPORT ACC# Date Time Exam [id number] Jul 27, 2015 11:10:00 [id number] Shoulder 1 view L EXAMINATION: Left shoulder, one view HISTORY: Left shoulder pain FINDINGS: A single axillary projection of the left shoulder is digitally-acquired. By itself, this constitutes an incompleteexamination. The glenohumeral joint space and alignment are normal. There is a Hill-Sachs defect of the posterior humeral head. IMPRESSION: One view examination of the left shoulder showing a humeral head Hill-Sachs defect. Requested By: Dictated By: RANDALL COLLIER M.D. on Jul 27 2015 11:14A This document has been electronically signed by: RANDALL COLLIER M.D. on Jul 27 2015 11:14A [id number] us Historical Provider IMG XR PROCEDURES Final R esult * Clinical Image (07/17/2015 12:24 PM ALTO SINGER) 07/17/2015 12:2 4 PM ALTO SINGER us Historical Provider NURSING COMMUNICATION Fin al Result HISTORICAL RESULTS documented in this encounter Visit Diagnoses Diagnosis Pain in left shoulder documented in this encounter
--- OUTSIDE RECORDS SUMMARY | 2024-06-16 05:08 | XMS_ITS | Encounter Summary ---
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
--- OUTSIDE RECORDS SUMMARY | 2024-06-16 05:08 | XMS_ITS | Encounter Summary ---
Author Organization [facility] Address [address] [place] [address] Care Team Providers Care Nurse Practitioner Adult Name Role Phone Tracey Acosta Primary Care Pr ovider Encounter Details Date Type Department Care Team (Late st Contact Info) Description 09/07/2018 1:15 PM CDT - 09/07/2018 2:00 PM CDT Surgery [facility] Dig[facility]ive [facility] [place] [address] [address] Kristie Cormier MD [address] [place] [address] COLON BIOPSY Surgery Details Date/Time Status Location OR Service Patient Class Case Class Case Type Trauma Case? 09/07/2018 1:15 PM Posted [facility] ENDOSCOPY GI 05 Gastroenterology Outpatient Elective Panel 1 Procedure LRB Anes Op Region Wound Class Comments COLON BIOPSY N/A Monitor Anesthes ia Care Colon Class II - Clean Contaminated Surgeon Surgeon Role Service Panel Kristie Cormier MD Primary Gastroenterology 1 documented in this encounter Social History Tobacco Use Types Packs/Day Years Used Date Smoking Tobacco: Never Smokeless Tobacco: Never Alcohol Use Standard Drinks/Week Comments Not Currently 0 (1 standard drink = 0.6 oz pur e alcohol) Sex and Gender Information Value Date Recorded Sex Assigned at Not on file Legal Sex Male 7:03 AM ICER HAND Gender Identity Not on file Sexual Orientation Not on file documented as of this encounter Last Filed Vital Signs Vital Sign Reading Time Taken Comments Blood Pressure 131/73 09/07/2018 1:30 PM CDT Pulse 60 09/07/2018 1:30 PM CDT Temperature 36.5 ??C (97.7 ??F) 09/07/2018 1:30 PM CD T Respiratory Rate 10 09/07/2018 1:30 PM CDT Oxygen Saturation 100% 09/07/2018 1:30 PM CDT Inhaled Oxygen Concentration - - [...] Male Attending MD: Kristie Cormier M.D. Room: [facility] ENDOSCOPY ROOM 5 Note Status: Finalized Procedure: [...] scope was passed under direct vision. The [id number] endoscope was introduced through the anus [...] On: 09/07/2018 2:56 PM Recognized by the [place] [employer] for promoting quality [...] gastric) 09/07/2018 3:53 PM CDT Narrative PATHOLOGY [facility] - 09/10/2018 4:43 PM CDT EPIC results best viewed via link to PDF [facility] [place] [address] SURGICAL PATHOLOGY REPORT FINAL Patient Name: ?? MIREILLE NORIEGA Gender: ??M : ??1995 (Age: 23) Address: ??[address] [place] [id number] Hospital #: ??[id number] Taken:09/07/2018 Received:09/07/2018 Reported: 09/10/2018 Patient Type: [facility] ?? Service: Gastro Location: [facility] Physician(s): ??Yolande Colmenares Diagnosis: A. Small bowel, [...] determined by the Surgical Pathology Department at [facility] as part of an ongoing quality rep program and in compliance with federally mandated [...] determined by the Surgical Pathology Department of [facility]. ??It has not been cleared or approved by the U. S. Food and Drug Administration. IMAGES AND SCANNED DOCUMENTS, IF INCLUDED, ONLY VIEWABLE IN PDF VERSION OF REPORT Kristie Cormier MD LAB PATHOLOGY ORDERABLES Avril anton Result PATHOLOGY [facility] 3rd Floor [place], [place] [phone] * COLONOSCOPY (09/07/2018 2:56 PM CDT) Anatomical Region Laterality Modality Other Narrative Procedure Note Kristie Cormier MD - 09/07/2018 2:56 PM CDT [facility] ENDOSCOPY [facility] Patient Name: Mireille Noriega Procedure Date: 09/07/2018 2:56 PM Date of : 1995 Admit Type: Outpatient Age: 23 Gender: Male Attending MD: Kristie Cormier M.D. Room: [facility] ENDOSCOPY ROOM 5 Note Status: Finalized Procedure: [...] scope was passed under direct vision.The CF [id number] endoscope was introduced throughthe anus and [...] On: 09/07/2018 2:56 PM Recognized by the [place] [employer] for promoting quality in endoscopy us Kristie Cormier MD ENDOSCOPY PROCEDURES Final Re sult documented in this encounter Visit Diagnoses Diagnosis Ulcerative colitis with complication, unspecified location (HCC) Ulcerative colitis with complication, unspecified location (HCC) [...] CRNA)1650 (New Bag - Provider: Laurence Geiger, RN)1715 (Stopped - Provider: Laurence Geiger, RN) PRN Medication Order 09/05/2018 09/06/2018 09/07/2018 [...] 08/11 documented in this encounter Care Teams Nurse Practitioner Adult Relationship Specialty Start Date End Date Tracey Acosta PA PCP - General Physician Can Slider 03/06/18 documented as of this encounter
--- OUTSIDE RECORDS SUMMARY | 2024-06-16 05:08 | XMS_ITS | Encounter Summary ---
Author Organization [facility] Address [address] [place] [address] Phone Care Team Providers Care Maintenance Associate Name Role Phone Tracey Acosta Primary Care Pr ovider Encounter Details Date Type Department Care Team (Late st Contact Info) Description 07/18/2018 Orders Only [facility] Gastroenterology [address] [facility] Advanced Medicine 8th [place] [address] [place] [address] Kristie Cormier MD [address] [place] [address] Social History Tobacco Use Types Packs/Day Years Used Date Smoking Tobacco: Never Smokeless Tobacco: Never Sex and Gender Information Value Date Recorded Sex Assigned at Not on file 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 360 tablet 3 07/18/2018 0 documented in this encounter Plan of Treatment Not on file documented as of this encounter Visit Diagnoses Not on filedocumented in this encounter Care Teams Maintenance Associate Relationship Specialty Start Date End Date Tracey Acosta PA PCP - General Physician Supervisor Cab 03/06/18 documented as of this encounter
--- OUTSIDE RECORDS SUMMARY | 2024-06-16 05:08 | XMS_ITS | Encounter Summary ---
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
--- OUTSIDE RECORDS SUMMARY | 2024-06-16 05:08 | XMS_ITS | Encounter Summary ---
Author Organization [facility] Address [address] [place] [address] Phone Care Team Providers Care Avionics Systems Technician Name Role Phone Tracey Acosta Primary Care Pr ovider Encounter Details Date Type Department Care Team (Late st Contact Info) Description 07/27/2018 Telephone [facility] Gastroenterology [facility] Advanced Medicine 8th [place] [address] [place] [phone] Monica Fry RN Social History Tobacco Use Types Packs/Day Years Used Date Smoking Tobacco: Never Smokeless Tobacco: Never Sex and Gender Information Value Date Recorded Sex Assigned at Not on file Legal Sex Male 7:03 AM MS ACCESS DATABASE DEVELOPER Gender Identity Not on file Sexual Orientation Not on file documented as of this encounter Miscellaneous Notes * Telephone Encounter - Monica Fry RN - 07/27/2018 11:05 AM CST lmom asking if pt had gotten his labs done yet. ACCESS DATABASE DEVELOPER documented in this encounter Plan of Treatment Not on file documented as of this encounter Visit Diagnoses Not on filedocumented in this encounter Care Teams Avionics Systems Technician Relationship Specialty Start Date End Date Tracey Acosta PA PCP - General Physician Joint Cleaning Machine Operator 03/06/18 documented as of this encounter
--- OUTSIDE RECORDS SUMMARY | 2024-06-16 05:08 | XMS_ITS | Encounter Summary ---
Author Organization [facility] Address [address] [place] [address] Phone Care Team Providers Care Software Integration Developer Name Role Phone Tracey Acosta Primary Care Pr ovider Encounter Details Date Type Department Care Team (Late st Contact Info) Description 07/17/2018 12:30 PM METAL TUBE CUTTER Office Visit [facility] [address] [facility] [address] 8th [place] [address] [place] [address] Kristie Cormier MD [address] [place], [place] [id number] Ulcerative colitis with complication, unspecified location (CMS/HCC) (Primary Dx) Social History Tobacco Use Types Packs/Day Years Used Date Smoking Tobacco: Never Smokeless Tobacco: Never Sex and Gender Information Value Date Recorded Sex Assigned at Not on file Legal Sex Male 7:03 AM METAL TUBE CUTTER Gender Identity Not on file Sexual Orientation Not on file documented as of this encounter Last Filed Vital Signs Vital Sign Reading Time Taken Comments Blood Pressure 120/76 07/17/2018 12:33 PM METAL TUBE CUTTER Pulse 65 07/17/2018 12:33 PM METAL TUBE CUTTER Temperature 36.8 ??C (98.2 ??F) 07/17/2018 1 2:33 PM METAL TUBE CUTTER Respiratory Rate - - Oxygen Saturation - - Inhaled Oxygen Concentration - - Weight 98.3 kg (216 lb 12.8 oz) 019 12:33 PM METAL TUBE CUTTER Height 180.3 cm (5' 11 ) 07/17/2018 12: 33 PM METAL TUBE CUTTER Body Mass Index 30.24 07/17/2018 12:33 PM METAL TUBE CUTTER documented in this encounter Ordered Prescriptions Prescription Sig Dispense Quantity Refills Last Filled Start Date End Date budesonide DR/ER (UCERIS) 9 mg tablet, delayed & ext.releaseIndicat ions:Ulcerative Colitis Take 1 tablet (9 mg total) by mouth daily. 30 tablet 1 07/17/2018 08/08/2019 documented in this encounter Progress Notes * Kristie Cormier MD - 07/17/2018 12:30 PM CST Reason for visit: Ulcerative colitis Problem List: Patient Active Problem List Diagnosis ??? Instability of shoulder joint ??? Superior glenoid labrum lesion of shoulder ??? Ulcerative colitis with complication (CMS/[facility]) HPI: Balbir Noriega is a pleasant 23 Male with a history of ulcerative colitis since 2010 of unclear disease distribution who has been on mesalamine since 2010 but is currently having a flare of symptoms with up to 30 BMs a day currently to the point where he notes 'he cannot take it anymore'. He also notes blood in the stools without abdominal pain or fever. He also denies oral ulcers, joint pain or skin rashes. 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 and the symptoms have greatly impacted his life. Family History Problem Relation Age of Onset [...] and Sexual Activity ??? Alcohol use: Not on file ??? Drug use: Not on file ??? Sexual activity: Not on file Lifestyle ??? Physical activity: Days per week: Not on file Minutes per session: Not on file ??? Stress: Not on file Relationships ??? Social connections: Talks on phone: Not on file Gets together: Not on file Attends pentecostal service: Not on file Active member of [...] Social History Narrative ??? Not on file Current Outpatient Medications Medication Sig Dispense Refill ? ? budesonide DR/ER (UCERIS) 9 mg tablet, delayed & ext.release Take 1 tablet (9 mg total) by mouth daily. 30 tablet 1 ??? dicyclomine (BENTYL) 10 mg capsule TK ONE C PO TID PRN 0 ??? tofacitinib (XELJANZ) 5 mg tablet Take 2 tablets (10 mg total) by mouth 2 (two) times a day. 360 tablet 3 No current facility-administered medications for this visit. The new patient intake form was reviewed with the patient on 07/17/2018. Review of Systems: Review of Systems All other systems reviewed and are negative. Physical Exam: BP 120/76 Pulse 65 Temp 36.8 ??C (98.2 ??F) Ht 180.3 cm (5' 11 ) Wt 98.3 kg (216 lb 12.8 oz) BMI 30.24 kg/m?? Physical Exam Constitutional: He is oriented to person, place, and time. He appears well-nourished. HENT: Head: Normocephalic and atraumatic. Eyes: Pupils are equal, round, and reactive to light. Neck: Normal range of motion. Cardiovascular: Normal rate, regular rhythm and normal heart sounds. Pulmonary/Chest: Breath sounds normal. Abdominal: Soft. Bowel sounds are normal. He exhibits no distension and no mass. There is no tenderness. There is no rebound. Musculoskeletal: Normal range of motion. Neurological: He is alert and oriented to person, place, and time. Skin: Skin is warm and dry. No rash noted. Visit Diagnoses: 1. Ulcerative colitis with complication, unspecified location (CMS/HCC) Assessment/Plan: 23 pleasant Male with current flare of symptoms of ulcerative colitis while on mesalamine. Plan: 1. Labs including CBC/CMP/CRP/ESR/Iron Panel 2. MR enterography. 3. Colonoscopy. 4. Start Uceris for flare Follow up: At colonoscopy documented in this encounter Plan of Treatment Not on file documented as of this encounter Visit Diagnoses Diagnosis Ulcerative colitis with complication, unspecified location (HCC)- Primary documented in this encounter Orders Case Request Count Last Ordered Date First Orde red Date CASE REQUEST GI 1 07/17/2018 documented in this encounter Care Teams Software Integration Developer Relationship Specialty Start Date End Date Tracey Acosta PA PCP - General Physician Social Services Coordinator 03/06/18 documented as of this encounter
--- OUTSIDE RECORDS SUMMARY | 2024-06-16 05:08 | XMS_ITS | Encounter Summary ---
Author Organization [facility] Address [address] [place] [address] Care Team Providers Care Trailer Rental Clerk Name Role Phone Camilla Davis Primary Care Pr ovider Encounter Details Date Type Department Care Team (Late st Contact Info) Description 09/05/2018 Telephone [facility] [place] [address] [facility] [address] [place] [address] Kristie Cormier MD [address] [place] [address] Social History Tobacco Use Types Packs/Day Years Used Date Smoking Tobacco: Never Smokeless Tobacco: Never Sex and Gender Information Value Date Recorded Sex Assigned at Not on file Legal Sex Male 7:03 AM SAMPLE MAKER HAND Gender Identity Not on file Sexual Orientation Not on file documented as of this encounter Miscellaneous Notes * Telephone Encounter - Yanely Deal - 09/05/2018 3:07 PM CDT REFERRING PROVIDER: CAMILLA DAVIS documented in this encounter Plan of Treatment Not on file documented as of this encounter Visit Diagnoses Not on filedocumented in this encounter Care Teams Trailer Rental Clerk Relationship Specialty Start Date End Date Camilla Davis PA PCP - General Physician Brickmason Contractor 03/06/18 documented as of this encounter
--- OUTSIDE RECORDS SUMMARY | 2024-06-16 05:08 | XMS_ITS | Encounter Summary ---
Author Organization [facility] [facility] Address [address] [place] [address] Phone Care Team Providers Care Pediatric Dermatologist Name Role Phone Tracey Acosta Primary Care Pr ovider Encounter Details Date Type Department Care Team (Late st Contact Info) Description 01/28/2011 Orders Only [facility] Scanning, Provider Social History Tobacco Use Types Packs/Day Years Used Date Smoking Tobacco: Never Assessed Sex and Gender Information Value Date Recorded Sex Assigned at Not on file Legal Sex Male 7:03 AM PACKAGING SALES CONSULTANT Gender Identity Not on file Sexual Orientation Not on file documented as of this encounter Plan of Treatment Not on file documented as of this encounter Procedures Procedure Name Priority Date/Time Associated Diagnosis Comments SCAN - PATHOLOGY 01/28/2011 documented in this encounter Results * SCAN - PATHOLOGY (01/28/2011) us Provider Scanning Final Result documented in this encounter Visit Diagnoses Not on filedocumented in this encounter Additional Health Concerns Infection Onset Date Last Indicated Resolved Time COVID: Suspected 10/28/2021 10/28/2021 10/28/2021 1:13 PM CDT documented as of this encounter Care Teams Pediatric Dermatologist Relationship Specialty Start Date End Date Tracey Acosta PA PCP - General Physician Orange Picker 03/06/18 documented as of this encounter
--- OUTSIDE RECORDS SUMMARY | 2024-06-16 05:09 | XMS_ITS | Continuity of Care Document ---
Author Organization [facility] Address [address] [place] [address] Phone Care Team Providers Care Producer Assistant Name Role Phone Mitch Whipple PT Unavailable Unavailable Advance Directives Directive Yes / No Effective Date File Name No Information Encounters Encounter Description Practice Location Reason(s) For Visit Diagnoses Date Provider Providers Copied on Encounter [facility], [address], [place], [place], [id number], tel:[phone] [facility] No Information Sarabjit Meyer. . Referring Provider: [address], [place], [address]. tel:[phone] Family History Family Member Type Diagnosis Age At Onset No Information Payers Payer name Insurance type Covered republican ID Authoriza tiradha(s) [facility] [id number] Social History Type Description Quantity Date Captured Comments Sex Male Smoking Status No Information Chief Complaint And Reason For Visit No Information Reason For Referral Reason For Referral No Information Plan Of Treatment Date Type Action Status Appointment Spohr, Balbir BOOKED Appointment Spohr, Balbir BOOKED Appointment Spohr, Balbir BOOKED Appointment Spohr, Balbir BOOKED Appointment Spohr, Balbir BOOKED Appointment Spohr, Balbir BOOKED Appointment Spohr, Balbir BOOKED Appointment Spohr, Balbir BOOKED Appointment Spohr, Balbir BOOKED Appointment Spohr, Balbir BOOKED Appointment Spohr, Balbir BOOKED Appointment Spohr, Balbir BOOKED Appointment Spohr, Balbir BOOKED Appointment Spohr, Balbir BOOKED Appointment Spohr, Balbir BOOKED Appointment Spohr, Balbir BOOKED Appointment Spohr, Balbir BOOKED Appointment Spohr, Balbir BOOKED History Of Present Illness Encounter Date Complaint History Of Prese nt Illness No Information Functional Status Date Functional Assessmen t No Information Instructions Date Instruction Additional Infor mation No Information Assessments Type Assessment Date No Information Patient Care Teams Name Effective Dates (start - stop) Status Members No Information
--- OUTSIDE RECORDS SUMMARY | 2024-06-16 05:20 | XMS_ITS | Continuity of Care Document ---
Author Organization [facility] Address [address] [place] [address] Phone Care Team Providers Care Registered Route Associate Name Role Phone Mitch Whipple PT Unavailable Unavailable Advance Directives Directive Yes / No Effective Date File Name No Information Encounters Encounter Description Practice Location Reason(s) For Visit Diagnoses Date Provider Providers Copied on Encounter [facility], [address], [place], [place], [id number], tel:[phone] [facility] No Information Sarabjit Meyer. . Referring Provider: [address], [place], [address]. tel:[phone] Family History Family Member Type Diagnosis Age At Onset No Information Payers Payer name Insurance type Covered republican ID Authoriza tiradha(s) [employer] [id number] Social History Type Description Quantity Date Captured [...]
--- OUTSIDE RECORDS SUMMARY | 2024-06-16 05:23 | XMS_ITS | Referral Summary ---
Author Organization [facility] Address [address] [place] [address] Care Team Providers Care Awning Maker Name Role Phone Unavailable Primary Care Provider Unavailabl e Source Comments [facility] Affiliates and Associated Physician Practices is amultiple site organization consisting of ambulatory clinics and hospital sitesin [place], [place], [place] and [place]. This disclosure is being madepursuant to the Care Everywhere program and may not contain all information available regarding this patient. Last updated 18.[facility] [employer] Allergies Active Allergy Reactions Criticality Noted Date Comments Penicillins Rash Medium 07/08/2019 Medications * Be aware that medications may not be up to date on this document. Alwaysverify current medications with the patient. Medication Sig Dispensed Refills Start Date End Date Status vedolizumab (ENTYVIO) injection by Intravenous route once Active Social History Tobacco Use Types Packs/Day Years Used Date Smoking Tobacco: Never Smokeless Tobacco: Never Alcohol Use Standard Drinks/Week Comments Yes 0 (1 standard drink = 0.6 oz pur e alcohol) Sex and Gender Information Value Date Recorded Sex Assigned at Not on file Gender Identity Not on file Sexual Orientation Not on file Last Filed Vital Signs Vital Sign Reading Time Taken Comments Blood Pressure 122/76 07/08/2019 10:23 AM DUMBWAITER OPERATOR Pulse 74 07/08/2019 10:23 AM DUMBWAITER OPERATOR Temperature 37.3 ??C (99.1 ??F) 07/08/2019 10:[address] Respiratory Rate 16 07/08/2019 10:23 AM DUMBWAITER OPERATOR Oxygen Saturation 98% 07/08/2019 10:23 AM DUMBWAITER OPERATOR Inhaled Oxygen Concentration - - Weight 99.8 kg (220 lb) 07/08/2019 10:23 AM DUMBWAITER OPERATOR Height 180.3 cm (5' 11 ) 07/08/2019 10:23 AM DUMBWAITER OPERATOR Body Mass Index 30.68 07/08/2019 10:23 AM DUMBWAITER OPERATOR Plan of Treatment Not on file
--- OUTSIDE RECORDS SUMMARY | 2024-06-16 05:23 | XMS_ITS | Encounter Summary ---
Author Organization [facility] Address [address] [facility] [place] [address] Care Team Providers Care Roving Machine Operator Name Role Phone Unavailable Primary Care Provider Unavailabl e Reason for Visit * Reason Comments Sore Throat Encounter Details Date Type Department Care Team (Late st Contact Info) Description 07/08/2019 10:20 AM ANGIOGRAPHY TECHNOLOGIST Office Visit [facility] [address] [phone] Provider, [facility] Acute pharyngitis, unspecified etiology (Primary Dx) Social History Tobacco [...] Comments Blood Pressure 122/76 07/08/2019 10:23 AM ANGIOGRAPHY TECHNOLOGIST Pulse 74 07/08/2019 10:23 AM ANGIOGRAPHY TECHNOLOGIST Temperature 37.3 ??C (99.1 ??F) 07/08/2019 10:23 AM C Respiratory Rate 16 07/08/2019 10:23 AM ANGIOGRAPHY TECHNOLOGIST Oxygen Saturation 98% 07/08/2019 10:23 AM ANGIOGRAPHY TECHNOLOGIST Inhaled Oxygen Concentration - - Weight 99.8 kg (220 lb) 07/08/2019 10:23 AM ANGIOGRAPHY TECHNOLOGIST Height 180.3 cm (5' 11 ) 07/08/2019 10:23 AM ANGIOGRAPHY TECHNOLOGIST Body Mass Index 30.68 07/08/2019 10:23 AM ANGIOGRAPHY TECHNOLOGIST documented in this encounter Patient Instructions * Patient Instructions* Karthik Harrison, PRIVACY DIRECTOR-ASSISTANT TEACHER - 07/08/2019 10:30 AM ANGIOGRAPHY TECHNOLOGIST Patient Education Pharyngitis WHAT YOU NEED TO KNOW: What is pharyngitis? Pharyngitis, or sore throat, is inflammation of the tissues and structures in your pharynx (throat). Pharyngitis is most often caused by bacteria. It may also be caused by a coldor flu virus. Other causes include smoking, allergies, or acid reflux. What signs and symptoms may occur with pharyngitis? ?? Sore throat or pain when you swallow ?? Fever, chills, and body aches ?? Hoarse or raspy voice ?? Cough, runny or stuffy nose, itchy or watery eyes ?? Headache ?? Upset stomach and loss of appetite ?? Mild neck stiffness ?? Swollen glands that feel like hard lumps when you touch your neck ?? White and yellow pus-filled blisters in the back of your throat How is pharyngitis diagnosed? Tell your healthcare provider about your symptoms. He may look insideyour throat and feel your neck. You may also need the following tests: ?? A throat culture may show which germ is causing your sore throat. A cotton swab is rubbed against the back of your throat. ?? Blood tests may be used to show if another medical condition is causing your sore throat. How is pharyngitis treated? Viral pharyngitis will go away on its own without treatment. Your sore throat should start to feel better in 3 to 5 days for both viral and bacterial infections. You may need any of the following: ?? Antibiotics treat a bacterial infection. ?? NSAIDs , such as ibuprofen, help decrease swelling, pain, and fever. NSAIDs can cause stomach bleeding or kidney problems in certain people. If you take blood thinner medicine, always ask your healthcare provider if NSAIDs are safe for you. Always read the medicine label and follow directions. ?? Acetaminophen decreases pain and fever. It is available without a doctor's order. Ask how much to take and how often to take it. Follow directions. Acetaminophen can cause liver damage if not taken correctly. How can I manage my symptoms? ?? Gargle salt water. Mix ?? teaspoon salt in an 8 ounce glass of warm water and gargle. This may help decrease swelling in your throat. ?? Drink liquids as directed. You may need to drink more liquids than usual. Liquids may help soothe your throat and prevent dehydration. Ask how much liquid to drink each day and which liquids are best for you. ?? Use a cool-steam humidifier to help moisten the air in your room and decrease your cough. ?? Soothe your throat with cough drops, ice, soft foods, or popsicles. How can I prevent the spread of pharyngitis? Cover your mouth and nose when you cough or sneeze. Donot share food or drinks. Wash your hands often. Use soap and water. If soap and water are unavailable, use an alcohol based hand leather currier. Call 911 for any of the following: ?? You have trouble breathing or swallowing because your throat is swollen or sore. When should I seek immediate care? ?? You are drooling because it hurts too much to swallow. ?? Your fever is higher than 102?F (39?C) or lasts longer than 3 days. ?? You are confused. ?? You taste blood in your throat. When should I contact my healthcare provider? ?? Your throat pain gets worse. ?? You have a painful lump in your throat that does not go away after 5 days. ?? Your symptoms do not improve after 5 days. ?? You have questions or concerns about your condition or care. CARE AGREEMENT: You have the right to help plan your care. Learn about your health condition and how it may be treated. Discuss treatment options with your healthcare providers to decide what care you want to receive. You always have the right to refuse treatment. The above information is an surgical aides teacher only. It is not intended as medical advice for individual conditions or treatments. Talk to your doctor, nurse or pharmacist before following any medical regimen to see if it is safe and effective for you. ?? Copyright Back& 2019 Information is for End User's use only and may not be sold, redistributed or otherwise used for commercial purposes. All illustrations and images included in CareNotes?? are the copyrighted property of [employer] or [employer] OGRAPHY TECHNOLOGIST documented in this encounter Progress Notes * Karthik Harrison, PRIVACY DIRECTOR-ASSISTANT TEACHER - 07/08/2019 10:38 AM CST Subjective: Balbir Noriega is a 24 year old male who presents for evaluation: Chief Complaint Patient presents with ??? Sore Throat Primary Care Physician is No primary care provider on file.. Pt complains of sore throat on the left side and no other symptoms at this time. Onset of symptoms was 1 day ago, gradually worsening since that time. sore throat. He is drinking plenty of fluids. Evaluation to date: none. Treatment to date: none Allergies Allergen Reactions ??? Penicillins Rash Outpatient Medications Marked as Taking for the 07/08/19 encounter (Office Visit) with Provider, Samir Noel Medication Sig ??? vedolizumab (ENTYVIO) injection by Intravenous route once No past medical history on file. There is no problem list on file for this patient. No past surgical history on file. Social History Socioeconomic History ??? Marital status: Spouse name: Not on file ??? Number [...] Substance and Sexual Activity ??? Alcohol use: Yes ??? Drug use: Not on file ??? Sexual activity: Not on file Lifestyle ??? Physical activity: Days per week: Not on file Minutes per session: Not on file ??? Stress: Not on file Relationships ??? Social connections: Talks on phone: Not on file Gets together: Not on file Attends congregation service: Not on file Active member of [...] Social History Narrative ??? Not on file Medications reviewed. Review of Systems Constitutional: Negative for fatigue, fevers, chills. Eyes: Negative Ears, nose, mouth, and throat: Positive for left sided sore throat, Negative for earaches bilaterally, vertigo, sinus trouble Respiratory: Negative Cardiovascular: Negative Neurological: Negative Objective: BP 122/76 (BP SITE: LEFT ARM, BP POSITION: SITTING, BP CUFF SIZE: 11) Pulse 74 Temp 99.1 ??F (37.3 ??C) (Oral) Resp 16 Ht 1.803 m (5' 11 ) Wt 99.8 kg (220 lb) SpO2 98% BMI 30.68 kg/m2 Skin: Physical Exam Exam General appearance: alert, cooperative, no distress Eyes: sclera and conjunctiva clear, EOMI and PERRLA, lids normal Ears: canals clear, tympanic membranes normal, hearing intact to voice Nose: nares open; no septal deviation is noted, no maxillary tenderness Throat: no mucous membrane abnormalities, mild oropharyngeal erythema, No hypertrophy or exudates notes Neck: range of motion is intact, no masses, thyroid not enlarged, no adenopathy Lungs: breath sounds normal and symmetric; no rales or wheezes Heart: regular rhythm, normal S1 and S2, without murmurs, gallops or rubs Neurologic: mental status normal; alert and oriented X 3; cranial nerves II - XII are grossly intact Recent Results (from the past 24 hour(s)) STREP A SCREEN - POINT OF CARE (AMB) STL Collection Time: 07/08/19 12:00 AM Result Value Ref Range Strep A Rapid POCT Negative Negative Strep A Internal Control Present Lot # [id number] Expiration Date 11/09/2020 Assessment: . Encounter Diagnoses Name Primary? Acute pharyngitis, unspecified etiology Yes Plan: Drink plenty of fluids Get plenty of rest Cool mist humidifier Elevate head of bed Tylenol or Ibuprofen per package direction for discomfort\fever (if not allergic) Follow up in 2-3 days if no improvement or sooner if worsening. Salt water gargles Offered a throat culture. Pt refused at this time. Orders Placed This Encounter ??? STREP A SCREEN - POINT OF CARE (AMB) STL Continue to follow up with No primary care provider on file. as directed. After Visit Summary reviewed with patient. The patient indicates understanding of these issues and agrees with the plan. Patient discharged to Home .ILIR Middleton 07/08/2019 10:38 AM OGRAPHY TECHNOLOGIST documented in this encounter Plan of Treatment Not on file documented as of this encounter Procedures Procedure Name Priority Date/Time Associated Diagnosis Comments STREP A SCREEN - POINT OF CARE (AMB) STL Routine 07/08/2019 Acute pharyngitis, unspecified etiology documented in this encounter Results * STREP A SCREEN - POINT OF CARE (AMB) STL (07/08/2019) Strep A Rapid POCT Negative Negative Strep A Internal Control Present Lot # [id number] Expiration Date 11/09/2020 Throat ENTIRE THROAT (SURFACE REGION OF NECK) / Unknown 07/08/2019 [facility] - POINT OF CARE ORDERABLES documented in this encounter Visit Diagnoses Diagnosis Acute pharyngitis, unspecified etiology- Primary documented in this encounter
--- OUTSIDE RECORDS SUMMARY | 2024-06-16 05:23 | XMS_ITS | Encounter Summary ---
Author Organization [facility] Address [address] [facility] [place] [address] Care Team Providers Care Endoscopy Registered Nurse Name Role Phone Unavailable Primary Care Provider Unavailabl e Reason for Visit * Reason Onset Date Comments Follow-up 07/10/2019 Encounter Details Date Type Department Care Team (Late st Contact Info) Description 07/10/2019 Telephone [facility] [employer] [facility] AT [address] [id number] Provider, [facility] Follow-up Social History Tobacco Use Types Packs/Day Years [...] encounter Miscellaneous Notes * Telephone Encounter - Liz Corral - 07/10/2019 3:19 PM CST Patient has no questions or concerns at this time. Patient states feeling much better. OGRINDER OPERATOR documented in this encounter Plan of Treatment Not on file documented as of this encounter Visit Diagnoses Not on filedocumented in this encounter
--- OUTSIDE RECORDS SUMMARY | 2024-06-16 05:23 | XMS_ITS | Clinical Summary ---
Author Organization [facility] [employer] Address [address] [facility] [place] [address] Care Team Providers Care Life Skills Coordinator Name Role Phone Unavailable Primary Care Provider Unavailabl e Source Comments [facility]-[place] [facility] Affiliates and Associated Physician Practices is amultiple site organization consisting of ambulatory clinics and hospital sitesin [place], [place], [place] and [place]. This disclosure is being madepursuant to the Care Everywhere program and may not contain all information available regarding this patient. Last updated 18.[facility] [employer] Allergies Active Allergy Reactions Criticality Noted Date [...] Comments Blood Pressure 122/76 07/08/2019 10:23 AM FISH SALTER Pulse 74 07/08/2019 10:23 AM FISH SALTER Temperature 37.3 ??C (99.1 ??F) 07/08/2019 10:[address] Respiratory Rate 16 07/08/2019 10:23 AM FISH SALTER Oxygen Saturation 98% 07/08/2019 10:23 AM FISH SALTER Inhaled Oxygen Concentration - - Weight 99.8 kg (220 lb) 07/08/2019 10:23 AM FISH SALTER Height 180.3 cm (5' 11 ) 07/08/2019 10:23 AM FISH SALTER Body Mass Index 30.68 07/08/2019 10:23 AM FISH SALTER Plan of Treatment Health Maintenance Due Date Last Done Comments HIV SCREENING 01/09/2008 HEPATITIS C SCREENING 01/04/2011 DTAP/TDAP/TD VACCINES (1 - Tdap) 01/09/2012 HEPATITIS B VACCINE (1 of 3 - 19+ 3-dose series) 01/09/2012 COVID-19 VACCINE (1 - 2023-2 5 season) 2024 INFLUENZA VACCINE (#1) 2024 DEPRESSION SCREENING 06/12/2024 ZOSTER VACCINE (1 of 2) 2043 HIB VACCINE Aged Out No longer eligi ble based on patient's age to complete this topic HPV VACCINE Aged Out No longer eligi ble based on patient's age to complete this topic MENINGOCOCCAL VACCINE Aged Out No jessica margot eligible based on patient's age to complete this topic PNEUMOCOCCAL VACCINE Aged Out No long er eligible based on patient's age to complete this topic
--- OUTSIDE RECORDS SUMMARY | 2024-06-16 05:23 | XMS_ITS | Patient Health Summary ---
Author Organization [facility] [employer] Address [address] [facility] [place] [address] Care Team Providers Care Catering Director Name Role Phone Unavailable Primary Care Provider Unavailabl e Note from [facility],non-owned Affiliates and Associated Physician Practices is amultiple site organization consisting of ambulatory clinics and hospital sitesin [place] and [place]. This disclosure is being madepursuant to the Care Everywhere program and may not contain all information available regarding this patient. Last updated 18.[facility] [employer] Allergies * Penicillins(Rash) -Medium Criticality Medications * Be aware that medications may not be up to date on this document. Alwaysverify current medications with the patient. * vedolizumab (ENTYVIO) injection by Intravenous route once Social History Tobacco Use Types Packs/Day Years [...] Comments Blood Pressure 122/76 07/08/2019 10:23 AM SEMI CONDUCTOR ASSEMBLER Pulse 74 07/08/2019 10:23 AM SEMI CONDUCTOR ASSEMBLER Temperature 37.3 ??C (99.1 ??F) 07/08/2019 10:[address] Respiratory Rate 16 07/08/2019 10:23 AM SEMI CONDUCTOR ASSEMBLER Oxygen Saturation 98% 07/08/2019 10:23 AM SEMI CONDUCTOR ASSEMBLER Inhaled Oxygen Concentration - - Weight 99.8 kg (220 lb) 07/08/2019 10:23 AM SEMI CONDUCTOR ASSEMBLER Height 180.3 cm (5' 11 ) 07/08/2019 10:23 AM SEMI CONDUCTOR ASSEMBLER Body Mass Index 30.68 07/08/2019 10:23 AM SEMI CONDUCTOR ASSEMBLER Procedures * STREP A SCREEN - POINT OF CARE (AMB) STL(Performed 07/08/2019) Performed for Acute pharyngitis, unspecified etiology Results * STREP A SCREEN - POINT OF CARE (AMB) STL (07/08/2019) Strep A Rapid POCT Negative Negative Strep A Internal Control Present Lot # [id number] Expiration Date 11/09/2020 Throat ENTIRE THROAT (SURFACE REGION OF NECK) / Unknown 07/08/2019 Karthik Harrison LANGUAGE INTERPRETER-PLANT PATHOLOGY TEACHER LAB - POINT OF CARE ORDERABLES
== END 2024-06-09 10:18 | disposition home or self-care (01) ==
PROVIDERS: Emergency Provider Nurse Practitioner Family; PCP Physician Assistant
DX: J02.9 Acute pharyngitis, unspecified (principal)
CPT/HCPCS: 87081; 87880; 99213; G0463